=== PATIENT | male | born 1945 | race Caucasian/White ===

== ENCOUNTER 2016-09-18 19:53 | Emergency (ER) | payer OTHER ==
[~2016-09-18] VITALS: Ht 182.9 cm; Wt 99.3 kg
[2016-09-18 19:58] VITALS: TEMP 36.8; Ht 182.9 cm; Wt 99.3 kg
[2016-09-18] MEDS ORDERED: DIPH1TAB87 PO (20:16)
[2016-09-18] MEDS ORDERED: LACT1CAP6 PO (20:16)
[2016-09-18 21:01] VITALS: O2SAT 96
[2016-09-18 21:21] LABS: BASO % 0.3 %; BASO ABS # 0.03 K/uL (0-0.2); COMPLETE YES; EOS % 1.7 %; HEMATOCRIT 46.8 % (42-52); IG% 0.1 %; LYMPH % 18.9 %; LYMPH ABS # 1.76 K/uL (1.2-3.4); MEAN CELL VOLUME 93.2 fL (80-100); MEAN CORPUSCULAR HEMOGLOBIN 31.1 pg (25-34); MEAN CORPUSCULAR HGB CONC 33.3 g/dl (32-36); MEAN PLATELET VOLUME 10.8 fL (7.4-10.4); MONO % 8.4 %; NEUT % 70.6 %; PLATELET COUNT 264 K/uL (130-400); RED BLOOD COUNT 5.02 M/uL (4.7-6.1); WHITE BLOOD COUNT 9.32 K/uL (4.8-10.8)
[2016-09-18 21:39] LABS: ALT/SGPT 41 U/L (12-78); BLOOD UREA NITROGEN 25 mg/dl (7-18); BUN/CREATININE RATIO 19.4 (10-20); CARBON DIOXIDE 27 mmol/L (21-32); CHLORIDE 105 mmol/L (98-107); GLUCOSE 128 mg/dl (70-99); POTASSIUM 4.1 mmol/L (3.5-5.1); SODIUM 141 mmol/L (136-145)
[2016-09-18] MEDS ORDERED: SODIUM CHLORIDE 0.9% 1000ML 1,000 ML IV STA (21:42)
[2016-09-18 21:45] LABS: URINE APPEARANCE CLEAR (CLEAR); URINE BILIRUBIN NEG (NEG); URINE COLOR YELLOW; URINE NITRITE NEG (NEG); URINE SPECIFIC GRAVITY 1.024 (1.000-1.030); UROBILINOGEN NEG (NEG)
[2016-09-18 21:48] LABS: MANUAL MICROSCOPIC REQUIRED? NO; REVIEW REQ? NO
[2016-09-18 21:50] LABS: ALKALINE PHOSPHATASE 70 U/L (45-117); AST/SGOT 28 U/L (15-37)
[2016-09-18 21:56] LABS: CALCIUM 8.6 mg/dl (8.5-10.1)
--- NOTE | 2016-09-18 22:07 | DIAGNOSTIC IMAGING REPORT ---
CHEST AND ABDOMEN 2 VIEWS HISTORY: Generalized abdominal pain. COMPARISON: None. FINDINGS: Old, healed left clavicle fracture. The lungs are clear. The heart is normal in size. No pneumoperitoneum. No pneumatosis. Surgical clips within the right upper quadrant likely representing a prior cholecystectomy. Multiple pelvic calcifications consistent with phleboliths. No renal calculi identified. A 9 cm round density overlying the lateral aspect of the left mid abdomen. The bowel gas pattern is unremarkable. No evidence for bowel obstruction. IMPRESSION: 1. No acute cardiopulmonary process. No evidence for bowel obstruction. 2. A 9 cm round density overlying the left midabdomen. This most likely represents a renal cyst. However, a renal mass could also have a similar appearance. Follow-up nonemergent renal ultrasound is recommended for further evaluation. Electronically signed by: Uday Davis M.D. 09/18/2016 10:06 PM Dictated Date/Time: 09/18/2016 10:02 PM
[2016-09-18 22:59] VITALS: BP 140/77; PULSE 67; O2SAT 95
--- NOTE | 2016-09-18 23:07 | EMERGENCY ROOM VISIT NOTE ---
History First contact with patient: 20:13 Chief Complaint: OTHER COMPLAINT Stated Complaint: PASSED OUT AND HIT HEAD;SICK TO STOMACH History of Present Illness The patient is a 71 year old male who presents to the Emergency Room with complaints of symptoms while fishing with his grandson this morning. The patient reports that he started his day with breakfast around 7:30 AM. He had a piece of pie with coffee. He then went flyfishing with his grandson. Around 1:30 PM, the patient developed an abrupt and severe crampy sensation in the upper abdomen. He reports that it felt more like nausea than pain. The pain did not radiate into the back, lower abdomen or chest. The patient reports that the pain then mostly resolved. The patient reports that he sat down on a rock because he had some fatigue between his shoulder blades. Shortly after sitting down, the pain came back again. He alerted his grandson who was down strain. The grandson reports that he came up to him and asked what was wrong, and the patient did not reply. He then fell off of the rock, striking the right side of his head on another rock. It bent the frame on his glasses. The grandson reports that he did not respond for approximately 30 seconds. When the patient remembers coming to, he noticed pain on the right side of his head. He still had some mild epigastric discomfort that started to resolve. He then went home and ate a hamburger around 2:30 PM. This seemed to help his discomfort and "queasiness". He then went to his mother's house and took a nap. When he woke up, he reported that his right-sided headache was worse. He thought he was getting a migraine because he started to develop visual changes and nausea. He took one of his mother's migraine pills and had some coffee with some improvement of his headache. When he got home, he started to develop queasiness again with his headache. At this point, his suggested that he come to the emergency department for further evaluation. The patient denies any history of constipation, acid reflux for pancreatitis. He is status post cholecystectomy. He denies any recent chest pain or shortness of breath, and denies any cardiac history. He does not have a strong history of family heart disease. He currently denies any pain or nausea, only complaining of pressure on the right side of his head. He also reports some abrasions to the right elbow and knee. He denies any significant pain in these regions. Tetanus immunization is up-to-date. Review of Systems HEENT: Denies dizziness, visual problems, hearing loss, tinnitus. Denies difficulty swallowing or oral lesions. PULMONARY: Denies cough, shortness of breath, sputum production or hemoptysis. CARDIOVASCULAR: Denies chest pain, palpitations, dyspnea on exertion, orthopnea or peripheral edema. GASTROINTESTINAL: Denies diarrhea, constipation, nausea, vomiting, or abdominal pain at the time of exam. Otherwise see history of present illness. GENITOURINARY: Denies dysuria, frequency, urgency or nocturia. NEUROLOGIC: Denies history of epilepsy, CVA, TIA or chronic headaches. MUSCULOSKELETAL: Denies history of joint tenderness/swelling. SKIN: Denies rashes or lesions. PSYCHIATRIC: Denies history of depression or mental illness. ENDOCRINE: Denies history of diabetes or thyroid disorders. Past Medical/Surgical History Surgical Problems: (1) History of cholecystectomy Family History Unremarkable Social History Smoking Status: Never Smoker Alcohol Use: occasionally Marital Status: Occupation Status: retired Current/Historical Medications Scheduled Lactobacillus (Probiotic), 1 CAP PO QAM Scheduled PRN Diphenhydramine Hcl (Benadryl Allergy), 25 MG PO DIRECTED PRN for POLLEN SEASON Allergies Coded Allergies: POLLEN (Verified Allergy, Mild, "TICKLE IN THROAT"-COUGH, 09/18/16) Physical Exam Vital Signs Date Time Temp Pulse Resp B/P (MAP) Pulse Ox O2 Delivery O2 Flow Rate FiO2 09/18/16 22:06 62 16 145/74 96 Room Air 09/18/16 21:33 65 18 95 Room Air 09/18/16 21:30 63 09/18/16 21:01 96 Room Air 09/18/16 19:58 36.8 76 18 160/94 96 Room Air Physical Exam CONSTITUTIONAL: Healthy and well nourished. Alert and oriented X 3 with positive affect. GCS 15. Patient does not appear in any acute distress. HEENT: Normocephalic, atraumatic. Pupils equal, round and reactive. No epistaxis, hemotympanum, raccoon's eyes, subconjunctival hemorrhage or Hwang sign. NECK: Full active range of motion without discomfort. No JVD or carotid bruits. RESPIRATORY: Clear to auscultation bilaterally with no wheezing, crackles, rhonchi or stridor. CARDIOVASCULAR: Regular rate and rhythm with no murmurs, rubs or gallops. GASTROINTESTINAL: Bowel sounds present in all quadrants. Patient has minimal tenderness to palpation over the epigastric region. No abdominal rigidity, guarding or rebound. Negative CVA tenderness. MUSCULOSKELETAL: Full range of motion of all joints without discomfort. Should has superficial abrasions to the right posterior elbow and anterior right knee. INTEGUMENTARY: No rash or other significant dermatologic conditions noted. HEMATOLOGIC: No ecchymosis or petechiae. NEUROLOGIC: Cranial nerves II-XII grossly intact. No focal neurologic deficits noted. No ataxia with ambulation. Medical Decision & Procedures ER Provider Diagnostic Interpretation: My interpretation of an ECG shows a normal sinus rhythm of 66 bpm with a left axis deviation and voltage criteria for left ventricular hypertrophy. There are no previous ECGs available for comparison. My interpretation of an abdomen series with a PA chest view shows a 9 cm left renal mass that the radiologist suspects is a renal cyst. Radiologist report is as follows: CHEST AND ABDOMEN 2 VIEWS HISTORY: Generalized abdominal pain. COMPARISON: None. FINDINGS: Old, healed left clavicle fracture. The lungs are clear. The heart is normal in size. No pneumoperitoneum. No pneumatosis. Surgical clips within the right upper quadrant likely representing a prior cholecystectomy. Multiple pelvic calcifications consistent with phleboliths. No renal calculi identified. A 9 cm round density overlying the lateral aspect of the left mid abdomen. The bowel gas pattern is unremarkable. No evidence for bowel obstruction. IMPRESSION: 1. No acute cardiopulmonary process. No evidence for bowel obstruction. 2. A 9 cm round density overlying the left midabdomen. This most likely represents a renal cyst. However, a renal mass could also have a similar appearance. Follow-up nonemergent renal ultrasound is recommended for further evaluation. Laboratory Results 09/18/16 21:00 Red Blood Count 5.02, Mean Corpuscular Volume 93.2, Mean Corpuscular Hemoglobin 31.1, Mean Corpuscular Hemoglobin Concent 33.3, Mean Platelet Volume 10.8, Neutrophils (%) (Auto) 70.6, Lymphocytes (%) (Auto) 18.9, Monocytes (%) (Auto) 8.4, Eosinophils (%) (Auto) 1.7, Basophils (%) (Auto) 0.3, Neutrophils # (Auto) 6.58, Lymphocytes # (Auto) 1.76, Monocytes # (Auto) 0.78, Eosinophils # (Auto) 0.16, Basophils # (Auto) 0.03 09/18/16 21:00 Test 09/18/16 21:00 09/18/16 21:11 09/18/16 21:25 White Blood Count 9.32 K/uL (4.8-10.8) Red Blood Count 5.02 M/uL (4.7-6.1) Hemoglobin 15.6 g/dL (14.0-18.0) Hematocrit 46.8 % (42-52) Mean Corpuscular Volume 93.2 fL (80-100) Mean Corpuscular Hemoglobin 31.1 pg (25-34) Mean Corpuscular Hemoglobin Concent 33.3 g/dl (32-36) Platelet Count 264 K/uL (130-400) Mean Platelet Volume 10.8 fL (7.4-10.4) Neutrophils (%) (Auto) 70.6 % Lymphocytes (%) (Auto) 18.9 % Monocytes (%) (Auto) 8.4 % Eosinophils (%) (Auto) 1.7 % Basophils (%) (Auto) 0.3 % Neutrophils # (Auto) 6.58 K/uL (1.4-6.5) Lymphocytes # (Auto) 1.76 K/uL (1.2-3.4) Monocytes # (Auto) 0.78 K/uL (0.11-0.59) Eosinophils # (Auto) 0.16 K/uL (0-0.5) Basophils # (Auto) 0.03 K/uL (0-0.2) RDW Standard Deviation 43.9 fL (36.4-46.3) RDW Coefficient of Variation 12.9 % (11.5-14.5) Immature Granulocyte % (Auto) 0.1 % Immature Granulocyte # (Auto) 0.01 K/uL (0.00-0.02) Anion Gap 9.0 mmol/L (3-11) Est Creatinine Clear Calc Drug Dose 63.6 ml/min Estimated GFR () 63.6 Estimated GFR (Non- 54.9 BUN/Creatinine Ratio 19.4 (10-20) Calcium Level 8.6 mg/dl (8.5-10.1) Total Bilirubin 0.3 mg/dl (0.2-1) Direct Bilirubin < 0.1 mg/dl (0-0.2) Aspartate Amino Transf (AST/SGOT) 28 U/L (15-37) Alanine Aminotransferase (ALT/SGPT) 41 U/L (12-78) Alkaline Phosphatase 70 U/L (45-117) Total Creatine Kinase 78 U/L (39-308) Total Protein 7.5 gm/dl (6.4-8.2) Albumin 3.5 gm/dl (3.4-5.0) Lipase 176 U/L (73-393) Thyroid Stimulating Hormone (TSH) 1.330 uIu/ml (0.300-4.500) Bedside Troponin I < 0.030 ng/ml (0-0.045) Urine Color YELLOW Urine Appearance CLEAR (CLEAR) Urine pH 5.0 (4.5-7.5) Urine Specific [place] 1.024 (1.000-1.030) Urine Protein 1+ (NEG) Urine Glucose (UA) NEG (NEG) Urine Ketones NEG (NEG) Urine Occult Blood NEG (NEG) Urine Nitrite NEG (NEG) Urine Bilirubin NEG (NEG) Urine Urobilinogen NEG (NEG) Urine Leukocyte Esterase NEG (NEG) Urine WBC (Auto) 1-5 /hpf (0-5) Urine RBC (Auto) 0-4 /hpf (0-4) Urine Hyaline Casts (Auto) 1-5 /lpf (0-5) Urine Epithelial Cells (Auto) 5-10 /lpf (0-5) Urine Bacteria (Auto) NEG (NEG) The above labs were reviewed. Bedside troponin was normal. BUN and creatinine are 25 and 1.3, respectively with a glucose of 128. CBC is otherwise unremarkable. Medications Administered Medications (Trade) Dose Ordered Sig/Digna Route Start Time Stop Time Status Last Admin Dose Admin Sodium Chloride 1,000 ml @ 999 mls/hr Q1H1M STAT IV 09/18/16 21:42 09/18/16 22:42 DC 09/18/16 22:01 999 MLS/HR ED Course Patient history and physical exam were performed. Nurse's notes were reviewed. Vital signs were reviewed, showing a blood pressure 160/94. The patient is afebrile and not tachycardic. O2 saturation is 96% on room air. The patient refused any analgesics or antiemetics. IV access was established, and labs were drawn. Review of labs shows a mildly elevated BUN and creatinine. The patient was hydrated with normal saline. Otherwise remaining labs, including troponin, are normal. An ECG was performed and was suggestive of left ventricular hypertrophy. An abdomen obstruction series with PA chest view shows a 9 cm left renal mass with an appearance most consistent with renal cyst. A nonemergent renal ultrasound was recommended. Otherwise the chest x- ray was also normal. I did suggest performing a head CT, but the patient reports that his headache is continuing to improve, and refused a head CT. I did encourage the patient to follow-up with his PCP or urologist for further renal ultrasound studies. I also suggested avoiding GI irritants such as caffeine, alcohol, NSAIDs and spicy foods. I did encourage use of Zantac and other stomach medications such as Rolaids or Maalox as needed. The patient was instructed to return to the emergency department for any progressively worsening pain or headache. The patient was happy with plan of care, and denied any significant headache, epigastric pain or nausea at the time of discharge. The case was not discussed with an attending physician because they were involved in critical care of other patients. Medical Decision Vision presents with abrupt onset of epigastric pain that has been intermittent in nature. The patient now is asymptomatic. He also stained a closed head injury with an improving headache. The patient refused a head CT. Lipitor studies are not suggestive of pancreatitis or hepatitis. The patient is status post cholecystectomy. His abdominal x-ray shows a large left renal mass that appears to be a renal cyst. A nonemergent renal ultrasound was suggested by the radiologist. At this point I do not suspect aortic dissection, AAA, myocardial infarction, pneumonia or pneumothorax. An acute gastritis, GERD or other GI etiologies were considered. Impression Primary Impression: Epigastric pain Additional Impressions: Closed head injury Left renal mass Departure Information Referrals Juan Antonio Ng, HenriettaO. (PCP) Patient Instructions [facility] Problem Qualifiers Additional Impressions: Closed head injury Encounter type: initial encounter Qualified Codes: S09.90XA - Unspecified injury of head, initial encounter
== END 2016-09-18 23:00 | disposition home or self-care (01) ==
LOC: C.EDB 19:57 → C.EDC 23:00
DX: R10.13 Epigastric pain (principal); S09.90XA Unspecified injury of head, initial encounter; W22.8XXA Striking against or struck by other objects, initial encounter; Y92.828 Other wilderness area as the place of occurrence of the external cause; R93.422 Abnormal radiologic findings on diagnostic imaging of left kidney; S50.311A Abrasion of right elbow, initial encounter; S80.211A Abrasion, right knee, initial encounter

== ENCOUNTER → 2016-10-19 | Outpatient (CLI) | payer OTHER ==
[~2016-10-19] MED LIST: DIPH1TAB PO; LACT1CAP6 PO; OPTIRAY 320 IV PRN
--- NOTE | 2016-10-19 08:39 | DIAGNOSTIC IMAGING REPORT ---
KIDNEY (ABDOMEN) COMBO HISTORY:71 yearsMaleRENAL NEOPLASM opacity of the left upper abdomen was seen on comparison radiographs suggesting renal lesion. This is a follow-up exam. COMPARISON: Chest and abdomen radiographs 09/18/2016. TECHNIQUE: Multiple axial CT images of the abdomen were obtained utilizing renal neoplasm protocol both without and with the use of 115 mL Optiray 320. 80 second and 5 minute delayed images were obtained. FINDINGS: There is minimal bibasal atelectasis with linear opacities extending to the pleural surfaces suggesting possible associated subsegmental pleural parenchymal scarring. The inferior cardiac chambers are within normal limits. There is no pneumoperitoneum. Prior cholecystectomy. There is diffuse fatty infiltration of the liver. There is moderate pancreatic atrophy. Adrenal glands appear to be unremarkable. There is a thin-walled ovoid circumscribed fluid attenuating exophytic lesion of the interpolar left kidney measuring up to 8.8 x 6.6 x 8.7 cm in AP, transverse and craniocaudal dimensions correlating with the opacity seen on comparison radiographs. There is no associated enhancement or suspicious septations to suggest suspicious findings. This remains most compatible with a benign renal cyst. There is a similar-appearing lesion of the inferior pole left kidney, 2.5 x 2.2 cm posteriorly with multiple additional smaller subcentimeter low attenuating lesions present bilaterally which are too small to characterize, however would suggest additional benign cysts. No suspicious enhancing masses of the kidneys are identified. No renal calculi or hydronephrosis. The abdominal aorta is normal in course and caliber. No bulky adenopathy identified. There is no bowel obstruction. No ascites. Soft tissues are unremarkable. Multilevel endplate degenerative changes are seen throughout the spine. IMPRESSION: 1. Large thin-walled fluid attenuating circumscribed mass of the interpolar left kidney measuring up to 8.8 cm is compatible with a benign cyst. Multiple additional benign-appearing renal cysts are present bilaterally. 2. No enhancing or suspicious appearing renal mass is identified. 3. Additional incidental findings as above include fatty infiltration of the liver and prior cholecystectomy. The above report was generated using voice recognition software. It may contain grammatical, syntax or spelling errors. Electronically signed by: Marc Cheema M.D. 10/19/2016 8:37 AM Dictated Date/Time: 10/19/2016 8:29 AM
== END | disposition home or self-care (01) ==
LOC: C.CTS 07:56
PROVIDERS: ATTEND Urology
DX: D49.519 Neoplasm of unspecified behavior of unspecified kidney (principal)

== ENCOUNTER 2024-04-23 00:20 | Inpatient (IN) ==
--- OUTSIDE RECORDS SUMMARY | 2024-04-23 00:25 | External Medical Summary | Summary of Care ---
Author Name Unknown Organization [facility] Address [address] [place] [address] Phone [phone] Care Team Providers Care Credit Collections Analyst Name Role Phone Sandhya Brian MD Primary Care Provide r Reason for Visit * Reason Comments eRx-Medication Refill Encounter Details Date Type Department Care Team (Late st Contact Info) Description 04/13/2024 Refill Family Medicine [address] [place] [phone] Sandhya Brian MD [address] [place] [address] [place] [address] Cerebrovascular disease, arteriosclerotic, post-stroke Allergies No known active allergiesdocumented as of this encounter (statuses as of 04/13/2024) Medications Acyclovir 400 MG Oral Tablet (Zovirax) Take 1 Tablet by mouth in the morning and 1 Tablet before bedtime. 08/09/19 24 Active Allopurinol 100 MG Oral Tablet (Zyloprim) Take 0.5 Tablets by mouth in the morning. 09/06/19 24 Active Phospha 250 Neutral 155-852-130 MG Oral Tablet Take 1 Tablet by mouth in the morning. Active Magnesium 400 MG Oral Tablet Take by mouth daily. Takes at 1100 Active Aspirin 81 MG Oral Tablet Delayed Release (Aspirin 81) Take 1 Tablet by mouth in the morning. Takes A1100. Active Loratadine 10 MG Oral Tablet (Claritin) Take 1 Tablet by mouth in the morning. Active Fluticasone Propionate 50 MCG/ACT Nasal SuspensionIndicat ions:Non-seasonal allergic rhinitis due to pollen,Acute frontal sinusitis, recurrence not specified Administer 2 Sprays into each nostril in the morning. 16 g 5 12/23/19 24 Active Benzonatate 100 MG Oral Capsule (Tessalon Perles) Take 1 Capsule by mouth 3 times a day as needed for Cough. 90 Capsule 01/19/20 24 Active Montelukast Sodium 10 MG Oral Tablet (Singulair)Indica tions:COPD, group B, by GOLD 2017 classification ([facility]) Take 1 Tablet by mouth in the morning. 30 Tablet 5 03/07/20 24 Active Arnuity Ellipta 200 MCG/ACT Inhalation Aerosol Powder Breath Activated (fluticasone Furoate)Indicatio ns:COPD, group B, by GOLD 2017 classification ([facility]) Inhale 1 Puff by mouth in the morning. 30 Each 2 03/14/20 24 Active Atorvastatin Calcium 10 MG Oral Tablet (Lipitor)Indicati ons:Cerebrovascul ar disease, arteriosclerotic, post-stroke TAKE 1 TABLET BY MOUTH EVERY DAY IN THE MORNING 90 Tablet 1 04/13/19 25 Active Atorvastatin Calcium 10 MG Oral Tablet (Lipitor)Indicati ons:Cerebrovascul ar disease, arteriosclerotic, post-stroke Take 1 Tablet by mouth in the morning. 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 07/11/2021 Chewing tobacco use 07/11/2021 BPH without obstruction/lower urinary tract symp toms 07/11/2021 Stage 3a chronic kidney disease 07/10/2020 Non-seasonal allergic rhinitis due to pollen 10/2019 Chronic midline low back pain without sciatica 0 12/04/2016 Renal cyst 12/04/2016 History of tobacco use documented as of this encounter (statuses as of 04/13/2024) Resolved Problems Problem Noted Date Diagnosed Date Resolved Date Kidney disease, chronic, sta ge III (GFR 30-59 ml/min) 01/16/2019 07/10/2020 Overview: Per CKD protocol documented as of this encounter (statuses as of 04/13/2024) Immunizations Name Administration Dates Next Due COVID-19 mRNA, LNP-s, No Pre serve, 2-Dose Series ([facility]) 06/05/2020,05/15/2020 COVID-19, MRNA-LNP, PF, 30 M CG/0.3 mL, 12 YRS AND ABOVE, IM ([facility]) 01/28/2024,03/10/2023 Covid-19, Mrna, Lnp-s, Pf, B ivalent, 30 Mcg, IM, 12 yrs and above (Pfizer) 12/23/2021 Pneumococcal Conjugate Vacc, 13 Valent (Prevnar) 01/05/2019 Pneumococcal Polysaccharide PPV23 (Pneumovax) 01/10/2020 Season Influenza, Quad, PF, Adjuvanted, 65+ Yrs, IM (FLUAD) 01/10/2020 Seasonal Influenza, High Dos e, Trivalent, PF, IM (Fluzone HD) 01/28/2024 Seasonal Influenza, PF, 6 M & above, IM , (FluLaval or Fluzone) 02/03/2018 Seasonal Influenza, Quadriva lent Hd (Fluzone Hd) 12/17/2022,02/18/2022,01/03/2021 Seasonal Influenza, Trivalen t, Adjuvanted, 65+ YRS, PF, (Fluad) 01/05/2019 documented as of this encounter Social History Tobacco Use Types Packs/Day Years Used Date Smoking Tobacco: Former Smokeless Tobacco: Current Snuff Alcohol Use Standard Drinks/Week Comments Yes 0 (1 standard drink = 0.6 oz pur e alcohol) occasional PHQ-2 Answer Date Recorded PHQ Adult Total Score 0 07/11/2021 Hunger Vital Sign Answer Date Recorded Within the past 12 months, y ou worried that your food would run out before you got the money to buy more. Never true 07/12/19 22 Within the past 12 months, t he food you bought just didn't last and you didn't have money to get more. Never true 07/11/2021 Sex and Gender Information Value Date Recorded Sex Assigned at Not on file Legal Sex Male 5:27 AM EST Gender Identity Not on file Sexual Orientation Not on file documented as of this encounter Miscellaneous Notes * Telephone Encounter - Ade Eastman [facility] - 04/13/2024 3:15 PM ESTSigned Prescriptions: Disp Refills Atorvastatin Calcium 10 MG Oral Tablet (Li*90 Tab*1 Sig: TAKE 1 TABLET BY MOUTH EVERY DAY IN THE MORNINGAuthorizing Provider: Gillian BRIAN User:ADE EASTMAN * Telephone Encounter - Ade Eastman [facility] - 04/13/2024 3:14 PM EST Did not order lipid panel at this time due to patient age and last LDL < 70 Thank you, Ade Eastman, PharmD Clinical Pharmacist [facility] 04/13/24 3:15 PM [phone] documented in this encounter Plan of Treatment Upcoming Encounters Date Type Department Care Team (Late st Contact Info) Description 05/01/2024 10:00 AM EST Office Visit [address] [place] [phone] Sandhya Brian MD [address] [place] [address] [place] [id number] 09/04/2024 7:20 AM EDT Office Visit [address] [place] [phone] Sandhya Brian MD [address] [place] [address] [place] [id number] Health Maintenance Due Date Last Done Comments DTap/Tdap Vaccines (1 - Tdap) 1964 Zoster Vaccines (1 of 2) 1964 Adult Wellness Visit 04/22/2017 04/22/2016 Depression Screening 07/11/2022 07/11/2021 Albumin/Creatinine Ratio 06/16/2023 023, 10/30/2021, 07/11/2021 GFR 09/18/2024 03/20/2024, 02/04, 02/07/2024, Additional history exists CKD HGB USE SMARTSET 56593 03/20/202503/20, 02/28/2024, 02/08/2024, Additional history exists CKD PHOS USE SMARTSET 90409 03/20/202503/05, 02/28/2024, 02/07/2024, Additional history exists Pneumococcal Vaccine: 50+ Years Completed 01/10/2020, 01/05/2019 COVID-19 Vaccine Completed 01/28/2024, 09/2022, 12/23/2021, Additional history exists Influenza Vaccine (FLU shot) Completed , 01/28/2024, 12/17/2022, Additional history exists HPV (Gardasil) Vaccine Aged Out No lo nger eligible based on patient's age to complete this topic Hepatitis B Vaccine Aged Out No longe r eligible based on patient's age to complete this topic MENINGOCOCCAL (MENACTRA/MENVEO) Aged Out No longer eligible based on patient's age to complete this topic documented as of this encounter Medical Devices Not on filedocumented as of this encounter Visit Diagnoses Diagnosis Cerebrovascular disease, arteriosclerotic, post-stroke Cerebral atherosclerosis documented in this encounter Care Teams Credit Collections Analyst Relationship Specialty Start Date End Date Sandhya Brian MD [address] [place] [address] [place] [id number] PCP - General Family Medicine 10/30/21 documented as of this encounter
--- OUTSIDE RECORDS SUMMARY | 2024-04-23 00:25 | External Medical Summary | Summary of Care ---
Author Name Unknown Organization [facility] Address [address] [facility] [address] Phone [phone] Care Team Providers Care Time Study Analyst Name Role Phone Sandhya Brian MD Primary Care Provide r Reason for Visit * Reason Onset Date Comments Med Request 03/13/2024 Encounter Details Date Type Department Care Team (Late st Contact Info) Description 03/13/2024 Telephone Family Medicine [address] [place] [phone] Sandhya Brian MD [address] [place] [address] [place] [address] Med Request Allergies No known active allergiesdocumented as of this encounter (statuses as of 03/14/2024) Medications Acyclovir 400 MG Oral Tablet (Zovirax) [...] Tablet by mouth in the morning. Active Atorvastatin Calcium 10 MG Oral Tablet (Lipitor)Indicati ons:Cerebrovascul ar disease, arteriosclerotic, post-stroke Take 1 Tablet by mouth in the morning. 90 Tablet 1 10/22/19 24 Active Fluticasone Propionate 50 MCG/ACT Nasal SuspensionIndicat [...] tions:COPD, group B, by GOLD 2017 classification ([facility]) Take 1 Tablet by mouth in the morning. 30 Tablet 5 03/07/20 24 Active Arnuity Ellipta 200 MCG/ACT Inhalation Aerosol Powder Breath Activated (fluticasone Furoate)Indicatio ns:COPD, group B, by GOLD 2017 classification ([facility]) Inhale 1 Puff by mouth in the morning. 30 Each 2 03/14/20 24 Active Arnuity Ellipta 100 MCG/ACT Inhalation Aerosol Powder Breath Activated (fluticasone Furoate) Inhale 1 Puff by mouth in the morning. 2023 Discontinued documented as of this encounter (statuses as of 03/14/2024) Active Problems Problem Noted Date Diagnosed Date [...] as of this encounter (statuses as of 03/14/2024) Resolved Problems Problem Noted Date Diagnosed Date Resolved Date Kidney disease, chronic, sta ge III (GFR 30-59 ml/min) 01/16/2019 07/10/2020 Overview: Per CKD protocol documented as of this encounter (statuses as of 03/14/2024) Immunizations Name Administration Dates Next Due COVID-19 mRNA, LNP-s, No Pre serve, 2-Dose Series ([employer]™) 06/05/2020,05/15/2020 COVID-19, MRNA-LNP, PF, 30 M CG/0.3 mL, 12 YRS AND ABOVE, IM ([employer]) 01/28/2024,03/10/2023 Covid-19, Mrna, Lnp-s, Pf, B ivalent, [...] encounter Miscellaneous Notes * Telephone Encounter - Sandhya Brian MD - 03/14/2024 8:20 AM EST Higher dose arnuity sent * Telephone Encounter - Ari Jamil PHARM Tech - 03/13/2024 8:20 AM EST Pt spouse calling to request a refill on Arnuity Ellipta 200MCG/ACT. Medication was last prescribedby Dr. Chang but patient is asking if PCP can take over the medication. Please advise if this is appropriate and send to [facility] [id number] if agreeable. Pt spouse states that at the last OV with PCP, it was discussed to increase Arnuity to 200mcg but there was no new script sent to the pharmacy. Pt has been using 2 puffs instead of 1 since his OV. Please approve refill WITH increased dose if appropriate. Pt will be out of medication on Wednesday. Pt spouse can be reached at [phone] ThanksAri CPht Tray Server III [facility] 03/13/2024,8:20 AM documented in this encounter Plan of Treatment Upcoming Encounters Date Type Department Care Team (Late st Contact Info) Description 05/01/2024 10:00 AM EST Office Visit [address] [place] [phone] Sandhya Brian MD [address] [place] [address] [place] [address] 09/04/2024 7:20 AM EDT Office Visit [address] [place] [phone] Sandhya Brian MD [address] [place] [address] [place] [address] Health Maintenance Due Date Last Done Comments DTap/Tdap Vaccines (1 - Tdap) 1964 Zoster Vaccines (1 of 2) 1964 Adult Wellness Visit 04/22/2017 04/22/2016 Depression Screening 07/11/2022 07/11/2021 Albumin/Creatinine Ratio 06/16/2023 023, 10/30/2021, 07/11/2021 GFR 08/27/2024 02/28/2024, 11/0 07/2023, 01/18/2024, Additional history exists CKD HGB USE SMARTSET 66330 02/27/202502/27, 02/08/2024, 01/18/2024, Additional history exists CKD PHOS USE SMARTSET 85655 02/27/202502/04, 02/07/2024, 01/18/2024, Additional history exists Pneumococcal Vaccine: 65+ Years Completed 01/10/2020, 01/05/2019 COVID-19 Vaccine Completed 01/28/2024, 09/2022, 12/23/2021, Additional history exists Influenza Vaccine (FLU shot) Completed , 12/17/2022, 02/18/2022, Additional history exists HPV (Gardasil) Vaccine Aged [...] as of this encounter Visit Diagnoses Diagnosis COPD, group B, by GOLD 2017 classification (HCC)- Primary documented in this encounter Care Teams Time Study Analyst Relationship Specialty Start Date End Date Sandhya Brian MD [address] [place] [address] [place] [address] PCP - General Family Medicine 10/30/21 documented as of this encounter
--- OUTSIDE RECORDS SUMMARY | 2024-04-23 00:25 | External Medical Summary | Summary of Care ---
Author Name Unknown Organization [facility] Address [address] [facility] [address] Phone [phone] Care Team Providers Care Clinical Quality Rn Name Role Phone Sandhya Brian MD Primary Care Provide r Reason for Visit * Reason Onset Date Comments Med Request 03/13/2024 Encounter Details Date Type Department Care Team (Late st Contact Info) Description 03/13/2024 Telephone Family Medicine [address] [place] [phone] Sandhya Brian MD [address] [place] [address] [place] [address] Med Request Allergies No known [...] tions:COPD, group B, by GOLD 2017 classification ([facility]) Take 1 Tablet by mouth in the morning. 30 Tablet 5 03/07/20 24 Active Arnuity Ellipta 200 MCG/ACT Inhalation Aerosol Powder Breath Activated (fluticasone Furoate)Indicatio ns:COPD, group B, by GOLD 2017 classification ([facility]) Inhale 1 Puff by mouth in the [...] mRNA, LNP-s, No Pre serve, 2-Dose Series (Lup[employer]ch) 06/05/2020,05/15/2020 COVID-19, MRNA-LNP, PF, 30 M CG/0.3 mL, 12 YRS AND ABOVE, IM ([employer]) 01/28/2024,03/10/2023 Covid-19, Mrna, Lnp-s, Pf, B ivalent, [...] encounter Miscellaneous Notes * Telephone Encounter - Joyce Ibarra CMA - 03/14/2024 8:54 AM EST Called and pt gave phone to , advised inhaler sent in to pharmacy * Telephone Encounter - Sandhya Brian MD [...] if this is appropriate and send to [facility] [id number] if agreeable. Pt spouse states that [...] Wednesday. Pt spouse can be reached at [phone] Ari Bowman CPht Memorandum Statement Clerk III [facility] 03/13/2024,8:20 AM documented in this encounter Plan of Treatment Upcoming Encounters Date Type Department Care Team ([facility] st Contact Info) Description 05/01/2024 10:00 AM EST Office Visit Family Medicine [address] [place] [phone] Sandhya Brian MD [address] [place] [address] [place] [address] 09/04/2024 7:20 AM EDT Office Visit Family Medicine [address] [place] [phone] Sandhya Brian MD [address] [place] [address] [place] [address] Health Maintenance Due Date Last Done Comments DTap/Tdap Vaccines (1 - Tdap) 1964 Zoster Vaccines (1 of 2) 1964 Adult Wellness Visit 04/22/2017 04/22/2016 Depression Screening 07/11/2022 07/11/2021 Albumin/Creatinine Ratio 06/16/2023 023, 10/30/2021, 07/11/2021 GFR 08/27/2024 02/28/2024, 1107/2023, 01/18/2024, Additional history exists CKD HGB USE SMARTSET 49504 02/27/202502/27, 02/08/2024, 01/18/2024, Additional history exists CKD PHOS USE SMARTSET 94464 02/27/202502/04, 02/07/2024, 01/18/2024, Additional history exists Pneumococcal [...] Primary documented in this encounter Care Teams Clinical Quality Rn Relationship Specialty Start Date End Date Sandhya Brian MD [address] [place] [address] [place] [id number] PCP - General Family Medicine 10/30/21 documented as of this encounter
--- OUTSIDE RECORDS SUMMARY | 2024-04-23 00:26 | External Medical Summary | Summary of Care ---
Author Name Unknown Organization [facility] Address [address] [facility] [place] [address] Phone [phone] Care Team Providers Care Retail Inventory Control Clerk Name Role Phone Sandhya Brian MD Primary Care Provide r Encounter Details Date Type Department Care Team (Late st Contact Info) Description 02/22/2024 Result Scan Unspecified Department <No scans attached> Allergies No known active allergiesdocumented as of this encounter (statuses as of 02/23/2024) Medications Acyclovir 400 MG Oral Tablet (Zovirax) Take 1 Tablet by mouth in the morning and 1 Tablet before bedtime. 4 Active Allopurinol 100 MG Oral Tablet (Zyloprim) Take 0.5 Tablets by mouth in the morning. 4 Active Phospha 250 Neutral 155-852-130 MG Oral Tablet Take 1 Tablet by mouth in the morning. Active Magnesium 400 MG Oral Tablet Take by mouth daily. Takes at 1100 Active Aspirin 81 MG Oral Tablet Delayed Release (Aspirin 81) Take 1 Tablet by mouth in the morning. Takes A1100. Active Sulfamethoxazol e-Trimethoprim 400-80 MG Oral Tablet (Bactrim) 1 Tablet. Wednesday and Wednesday 4 Active Loratadine 10 MG Oral Tablet (Claritin) Take 1 Tablet by mouth in the morning. Active Atorvastatin Calcium 10 MG Oral Tablet (Lipitor)Indica tions:Cerebrova scular disease, arterioscleroti c, post-stroke Take 1 Tablet by mouth in the morning. 90 Tablet 1 4 Active Fluticasone Propionate 50 MCG/ACT Nasal SuspensionIndic ations:Non-seas onal allergic rhinitis due to pollen,Acute frontal sinusitis, recurrence not specified Administer 2 Sprays into each nostril in the morning. 16 g 5 4 Active Azithromycin 250 MG Oral Tablet (Zithromax Z-Heriberto)Indicatio ns:Acute cough Take two tablets by mouth on first day, then 1 tablet daily until gone 6 Tablet 4 Active predniSONE 10 MG Oral Tablet (Deltasone)Giuliana cations:Acute cough Take 5 tabs for 2 days, 4 tabs for 2 days, 3 tabs for 2 days, 2 tabs for 2 days 1 tab for 2 days 30 Tablet 4 Active Benzonatate 100 MG Oral Capsule (Tessalon Perles) Take 1 Capsule by mouth 3 times a day as needed for Cough. 90 Capsule 4 Active documented as of this encounter (statuses as of 02/23/2024) Active Problems Problem Noted Date Diagnosed Date [...] as of this encounter (statuses as of 02/23/2024) Resolved Problems Problem Noted Date Diagnosed Date Resolved Date Kidney disease, chronic, sta ge III (GFR 30-59 ml/min) 01/16/2019 07/10/2020 Overview: Per CKD protocol documented as of this encounter (statuses as of 02/23/2024) Immunizations Name Administration Dates Next Due COVID-19 mRNA, LNP-s, No Pre serve, 2-Dose Series ([employer]) 06/05/2020,05/15/2020 COVID-19, MRNA-LNP, PF, 30 M CG/0.3 mL, 12 YRS AND ABOVE, IM (PFI[employer]ER-Comirnaty) 01/28/2024,03/10/2023 Covid-19, Mrna, Lnp-s, Pf, B ivalent, [...] money to get more. Never true 07/11/2021 Utilities Answer Date Recorded Do you have trouble paying y our heating, water, or electric bill? (Adult - for ages 18 years and over) Not on file 09/21/2023 Is your family able to pay t he heat, water, or electric bill? (Household - for ages 0-17 years) Not on file 09/21/2023 Does your family have access to good internet? (Household - for ages 0-17 years) Not on file 09/21/2023 Social Connections Answer Date Recorded How often do you feel lonely or isolated from those around you? (Adult - for ages 18 years and over) Not on file 09/21/2023 Sex and Gender Information Value Date Recorded Sex Assigned at Not on file Legal Sex Male 5:27 AM EST Gender Identity Not on file Sexual Orientation Not on file documented as of this encounter Plan of Treatment Upcoming Encounters Date Type Department Care Team (Late st Contact Info) Description 09/04/2024 7:20 AM EDT Office Visit Family Medicine [address] [place] [phone] Sandhya Brian MD [address] [place] [address] [place] [address] Health Maintenance Due Date Last Done Comments DTap/Tdap Vaccines (1 - Tdap) 1964 Zoster Vaccines (1 of 2) 1964 Adult Wellness Visit 04/22/2017 04/22/2016 Depression Screening 07/11/2022 07/11/2021 Albumin/Creatinine Ratio 06/16/2023 023, 10/30/2021, 07/11/2021 GFR 08/06/2024 02/07/2024, 01/03, 12/31/2023, Additional history exists CKD PHOS USE SMARTSET 12799 02/06/202507/2023, 01/18/2024, 12/31/2023, Additional history exists CKD HGB USE SMARTSET 82985 02/07/202502/07, 01/18/2024, 12/31/2023, Additional history exists Pneumococcal Vaccine: 65+ Years [...] Not on filedocumented as of this encounter Procedures Procedure Name Priority Date/Time Associated Diagnosis Comments OUTSIDE LAB RESULTS 02/22/2024 documented in this encounter Results * OUTSIDE LAB RESULTS (02/22/2024) 02/22/2024 us No Physician Data Unknown LABORATORY Final Result documented in this encounter Care Teams Retail Inventory Control Clerk Relationship Specialty Start Date End Date Sandhya Brian MD [address] [place] [address] [place] [address] PCP - General Family Medicine 10/30/21 documented as of this encounter
--- OUTSIDE RECORDS SUMMARY | 2024-04-23 00:26 | External Medical Summary | Summary of Care ---
Author Name Unknown Organization [facility] Address [address] [facility] [place] [address] Phone [phone] Care Team Providers Care Warp Knitting Machine Operator Name Role Phone Sandhya Brian MD Primary Care Provide r Reason for Visit * Reason Onset Date Comments Advice 03/06/2024 Encounter Details Date Type Department Care Team (Late st Contact Info) Description 03/06/2024 Telephone Family Medicine [address] [place] [phone] Sandhya Brian MD [address] [place] [address] [place] [address] Advice Allergies No known active allergiesdocumented as of this encounter (statuses as of 03/06/2024) Medications Acyclovir 400 MG Oral Tablet (Zovirax) [...] as of this encounter (statuses as of 03/06/2024) Active Problems Problem Noted Date Diagnosed Date [...] as of this encounter (statuses as of 03/06/2024) Resolved Problems Problem Noted Date Diagnosed Date Resolved Date Kidney disease, chronic, sta ge III (GFR 30-59 ml/min) 01/16/2019 07/10/2020 Overview: Per CKD protocol documented as of this encounter (statuses as of 03/06/2024) Immunizations Name Administration Dates Next Due COVID-19 mRNA, LNP-s, No Pre serve, 2-Dose Series ([employer]) 06/05/2020,05/15/2020 COVID-19, MRNA-LNP, PF, 30 M CG/0.3 mL, 12 YRS AND ABOVE, IM ([employer]) 01/28/2024,03/10/2023 Covid-19, Mrna, Lnp-s, Pf, B ivalent, [...] Telephone Encounter - Sandhya Brian MD - 03/06/2024 1:23 PM EST Recommend a clinic eval * Telephone Encounter - Joyce bIarra CMA - 03/06/2024 10:35 AM EST Please advise * Telephone Encounter - Jovan Nunez, silverer - 03/06/2024 10:22 AM EST Pt calling for advice regarding persistent cough. Pt has had horrible cough since end of November and try/failed many medication. Saw courseware developer "who stated it was pts sinuses." Pt also told he has acid reflux and asthma. Pt taking Flonase, omeprazole and inhaler. Pt's stating pt still has cough but is unsure what to do. Please contact pt's at home first, if no answer pt's might have her cell phone on her [phone]. [facility] [id number] Thank you, Jovan Nunez Founder And Chief Executive Officer I [facility] ([facility]) 03/06/2024,10:28 AM documented in this encounter Plan of Treatment Upcoming Encounters Date Type Department Care Team (Late st Contact Info) Description 09/04/2024 7:20 AM EDT Office Visit Family Medicine [address] [place] [phone] Sandhya Brian MD [address] [place] [address] [place] [address] Health Maintenance Due Date Last Done Comments DTap/Tdap Vaccines (1 - Tdap) 1964 Zoster Vaccines (1 of 2) 1964 Adult Wellness Visit 04/22/2017 04/22/2016 Depression Screening 07/11/2022 07/11/2021 Albumin/Creatinine Ratio 06/16/2023 023, 10/30/2021, 07/11/2021 GFR 08/27/2024 02/28/2024, 07/2023, 01/18/2024, Additional history exists CKD HGB USE SMARTSET 09770 02/27/202502/27, 02/08/2024, 01/18/2024, Additional history exists CKD PHOS USE SMARTSET 71779 02/27/202502/04, 02/07/2024, 01/18/2024, Additional history exists Pneumococcal [...] Not on filedocumented as of this encounter Care Teams Warp Knitting Machine Operator Relationship Specialty Start Date End Date Sandhya Brian MD [address] [place] [address] [place] [phone] PCP - General Family Medicine 10/30/21 documented as of this encounter
--- OUTSIDE RECORDS SUMMARY | 2024-04-23 00:26 | External Medical Summary | Summary of Care ---
Author Name Unknown Organization [facility] Address [address] [facility] [place] [address] Phone [phone] Care Team Providers Care Dynamiter Name Role Phone Sandhya Brian MD Primary Care Provide r Encounter Details Date Type Department Care Team (Late st Contact Info) Description 02/10/2024 Orders Only Family Medicine [address] [place] [phone] Sandhya Brian MD [address] [place] [address] [place] [address] Allergies No known active allergiesdocumented as of this encounter (statuses as of 02/10/2024) Medications Medication Sig Dispensed Refills Start Date End Date Status Acyclovir 400 MG Oral Tablet (Zovirax) Take 1 Tablet by mouth in the morning and 1 Tablet before bedtime. 08/09/2023 Active Allopurinol 100 MG Oral Tablet (Zyloprim) Take 0.5 Tablets by mouth in the morning. 09/06/2023 Active Phospha 250 Neutral 155-852-130 MG Oral Tablet Take 1 Tablet by mouth in the morning. Active Magnesium 400 MG Oral Tablet Take by mouth daily. Takes at 1100 Active Aspirin 81 MG Oral Tablet Delayed Release (Aspirin 81) Take 1 Tablet by mouth in the morning. Takes A1100. Active Sulfamethoxazole-Tr imethoprim 400-80 MG Oral Tablet (Bactrim) 1 Tablet. Wednesday and Wednesday07/26/2023 Active Loratadine 10 MG Oral Tablet (Claritin) Take 1 Tablet by mouth in the morning. Active Atorvastatin Calcium 10 MG Oral Tablet (Lipitor)Indication s:Cerebrovascular disease, arteriosclerotic, post-stroke Take 1 Tablet by mouth in the morning. 90 Tablet 1 10/22/2023 Active Fluticasone Propionate 50 MCG/ACT Nasal SuspensionIndicatio ns:Non-seasonal allergic rhinitis due to pollen,Acute frontal sinusitis, recurrence not specified Administer 2 Sprays into each nostril in the morning. 16 g 5 12/23/2023 Active Azithromycin 250 MG Oral Tablet (Zithromax Z-Heriberto)Indications:A cute cough Take two tablets by mouth on first day, then 1 tablet daily until gone 6 Tablet 12/28/2023 Active predniSONE 10 MG Oral Tablet (Deltasone)Indicati ons:Acute cough Take 5 tabs for 2 days, 4 tabs for 2 days, 3 tabs for 2 days, 2 tabs for 2 days 1 tab for 2 days 30 Tablet 12/28/2023 Active Benzonatate 100 MG Oral Capsule (Tessalon Perles) Take 1 Capsule by mouth 3 times a day as needed for Cough. 90 Capsule 01/19/2024 Active documented as of this encounter (statuses as of 02/10/2024) Active Problems Problem Noted Date Diagnosed Date [...] as of this encounter (statuses as of 02/10/2024) Resolved Problems Problem Noted Date Diagnosed Date Resolved Date Kidney disease, chronic, sta ge III (GFR 30-59 ml/min) 01/16/2019 07/10/2020 Overview: Per CKD protocol documented as of this encounter (statuses as of 02/10/2024) Immunizations Name Administration Dates Next Due COVID-19 mRNA, LNP-s, No Pre serve, 2-Dose Series ([employer]) 06/05/2020,05/15/2020 COVID-19, MRNA-LNP, PF, 30 M CG/0.3 mL, 12 YRS AND ABOVE, IM ([facility]) 01/28/2024,03/10/2023 Covid-19, Mrna, Lnp-s, Pf, B [...] Recorded Sex Assigned at Not on file Gender Identity Not on file Sexual Orientation Not on file Job Start Date Occupation Industry Not on file Not on file Not on file documented as of this encounter Plan of Treatment Upcoming Encounters Date Type Department Care Team (Late st Contact Info) Description 09/04/2024 7:20 AM EDT Office Visit Family Medicine [address] [place] [phone] Sandhya Brian MD [address] [place] [address] [place] [address] Health Maintenance Due Date Last Done Comments DTap/Tdap Vaccines (1 - Tdap) 1964 Zoster Vaccines (1 of 2) 1964 Adult Wellness Visit 04/22/2017 04/22/2016 Depression Screening 07/11/2022 07/11/2021 Albumin/Creatinine Ratio 06/16/2023 023, 10/30/2021, 07/11/2021 GFR 08/06/2024 02/07/2024, 01/03, 12/31/2023, Additional history exists CKD PHOS USE SMARTSET 46613 02/06/202507/2023, 01/18/2024, 12/31/2023, Additional history exists CKD HGB USE SMARTSET 94259 02/07/202502/07, 01/18/2024, 12/31/2023, Additional history exists Pneumococcal [...] Procedure Name Priority Date/Time Associated Diagnosis Comments CHEMISTRY-OUTSIDE Routine 02/08/2024 documented in this encounter Results * (ABNORMAL) CHEMISTRY-OUTSIDE (02/08/2024) Not all results display below - see scan for full detail OUTSIDE LAB (SEE SCANNED REPORT) Comment:SCAN INCLUDES - CBCD CREATININE OUTSIDE L AB (SEE SCANNED REPORT) EGFR OUTSIDE LA B (SEE SCANNED REPORT) POTASSIUM OUTSIDE LA B (SEE SCANNED REPORT) GLUCOSE OUTSIDE LA B (SEE SCANNED REPORT) HOURS FASTING OUTSID E LAB (SEE SCANNED REPORT) TRIGLYCERIDES-OUT SIDE LAB OUTSIDE LAB (SEE SCANNED REPORT) CHOLESTEROL-OUTSI DE LAB OUTSIDE LAB (SEE SCANNED REPORT) HDL-OUTSIDE LAB OUTS [facility] (SEE SCANNED REPORT) CHOL/HDL RATIO-OUTSIDE LAB OUTSIDE LA B (SEE SCANNED REPORT) LDL (CALCULATED)-OUTS [facility] OUTSIDE LAB (SEE SCANNED REPORT) LDL (DIRECT MEASURE)-OUTSIDE LAB OUTSIDE LAB (SEE SCANNED REPORT) HEMOGLOBIN, E5Z-[id number] LAB OUTSIDE LAB (SEE SCANNED REPORT) PHOSPHORUS-OUTSID E LAB OUTSIDE LAB (SEE SCANNED REPORT) PTH-OUTSIDE LAB OUTS [facility] (SEE SCANNED REPORT) MICROALBUMIN RATIO-OUTSIDE LAB OUTSIDE LA B (SEE SCANNED REPORT) PROTEIN, UA-OUTSIDE LAB OUTSIDE LAB (SEE SCANNED REPORT) HGB 11.1(A) 13.5 - 18.0 GM/DL OUTSIDE LAB (SEE SCANNED REPORT) 02/08/2024 Ludivina Cerrato PA-C LABORATORY OUTSIDE LAB (SEE SCANNED REPORT) documented in this encounter Care Teams Dynamiter Relationship Specialty Start Date End Date Sandhya Brian MD [address] [place] [address] [place] [address] PCP - General Family Medicine 10/30/21 documented as of this encounter
--- OUTSIDE RECORDS SUMMARY | 2024-04-23 00:26 | External Medical Summary | Summary of Care ---
Author Name Unknown Organization [facility] Address [address] [place] [address] Phone [phone] Care Team Providers Care Server Service Assistant Name Role Phone Sandhya Brian MD Primary Care Provide r Reason for Visit * Reason Onset Date Comments Fax 03/01/2024 Encounter Details Date Type Department Care Team (Late st Contact Info) Description 03/01/2024 Telephone Access Center, [place] [address] [facility] *DO NOT REMOVE THIS DEPARTMENT* [place], [place] [id number] Services, Scheduling [address] [place] [address] Fax Allergies No known active allergiesdocumented as of this encounter (statuses as of 03/01/2024) Medications Acyclovir 400 MG Oral Tablet (Zovirax) [...] Active Benzonatate 100 MG Oral Capsule (Tessalon Perlmunir) Take 1 Capsule by mouth 3 times a day as needed for Cough. 90 Capsule 4 Active documented as of this encounter (statuses as of 03/01/2024) Active Problems Problem Noted Date Diagnosed Date [...] as of this encounter (statuses as of 03/01/2024) Resolved Problems Problem Noted Date Diagnosed Date Resolved Date Kidney disease, chronic, sta ge III (GFR 30-59 ml/min) 01/16/2019 07/10/2020 Overview: Per CKD protocol documented as of this encounter (statuses as of 03/01/2024) Immunizations Name Administration Dates Next Due COVID-19 mRNA, LNP-s, No Pre serve, 2-Dose Series ([employer]) 06/05/2020,05/15/2020 COVID-19, MRNA-LNP, PF, 30 M CG/0.3 mL, 12 YRS AND ABOVE, IM ([facility] 01/28/2024,03/10/2023 Covid-19, Mrna, Lnp-s, Pf, B [...] encounter Miscellaneous Notes * Telephone Encounter - Kimmy Morales OSA - 03/01/2024 3:03 PM EST Caller requesting the following information to be faxed: Name/Company of caller: ravi vazquez [facility] cardiology Information requested to be faxed: Holter monitor results Fax number: [phone] Attention to Name/Company: [employer]avi Any additional information?: faxed for cont. Of care- pt in their office now documented in this encounter Plan of Treatment Upcoming Encounters Date Type Department Care Team (Late st Contact Info) Description 09/04/2024 7:20 AM EDT Office Visit Family Medicine [address] [place] [address] Sandhya Brian MD [address] [place] [address] [place] [address] Health Maintenance Due Date Last Done Comments DTap/Tdap Vaccines (1 - Tdap) 1964 Zoster Vaccines (1 of 2) 1964 Adult Wellness Visit 04/22/2017 04/22/2016 Depression Screening 07/11/2022 07/11/2021 Albumin/Creatinine Ratio 06/16/2023 023, 10/30/2021, 07/11/2021 GFR 08/27/2024 02/28/2024, 11/0 07/2023, 01/18/2024, Additional history exists CKD HGB USE SMARTSET 76618 02/27/202502/27, 02/08/2024, 01/18/2024, Additional history exists CKD PHOS USE SMARTSET 79037 02/27/202502/04, 02/07/2024, 01/18/2024, Additional history exists Pneumococcal [...] filedocumented as of this encounter Care Teams Server Service Assistant Relationship Specialty Start Date End Date Sandhya Brian MD [address] [place] [address] [place] [address] PCP - General Family Medicine 10/30/21 documented as of this encounter
--- OUTSIDE RECORDS SUMMARY | 2024-04-23 00:26 | External Medical Summary | Summary of Care ---
Author Name Unknown Organization [facility] Address [address] [facility] [address] Phone [phone] Care Team Providers Care Flaring Machine Operator Name Role Phone Sandhya Brian MD Primary Care Provide r Reason for Visit * Reason Comments Acute Encounter Details Date Type Department Care Team (Latest Contact Info) Description 03/07/2024 9:00 AM EST Office Visit Family Medicine [address] [address] Sandhya Brian MD [address] [place] [address] [place] [address] COPD, group B, by GOLD 2017 classification ([facility])*; SOB (shortness of breath) Allergies No known active allergiesdocumented as of this encounter (statuses as of 03/07/2024) Medications Acyclovir 400 MG Oral Tablet (Zovirax) [...] Active Atorvastatin Calcium 10 MG Oral Tablet (Lipitor)Indicatio ns:Cerebrovascular disease, arteriosclerotic, post-stroke Take 1 Tablet by mouth in the morning. 90 Tablet 1 10/22/19 24 Active Fluticasone Propionate 50 MCG/ACT Nasal SuspensionIndicati ons:Non-seasonal allergic rhinitis due to pollen,Acute frontal sinusitis, recurrence not specified Administer 2 Sprays into each nostril in the morning. 16 g 5 12/23/19 24 Active Benzonatate 100 MG Oral Capsule (Tessalon Perles) Take 1 Capsule by mouth 3 times a day as needed for Cough. 90 Capsule 01/19/20 24 Active Montelukast Sodium 10 MG Oral Tablet (Singulair)Indicat ions:COPD, group B, by GOLD 2017 classification ([facility]) Take 1 Tablet by mouth in the morning. 30 Tablet 5 03/07/20 24 Active Arnuity Ellipta 100 MCG/ACT Inhalation Aerosol Powder Breath Activated (fluticasone Furoate) Inhale 1 Puff by mouth in the morning. Active Sulfamethoxazole-T rimethoprim 400-80 MG Oral Tablet (Bactrim) 1 Tablet. Wednesday and Wednesday07/26/19 24 024 Discontin ued(Medic ation List Clean Up) Amoxicillin-Pot Clavulanate 875-125 MG Oral Tablet (Augmentin)Indicat ions:Acute non-recurrent frontal sinusitis Take 1 Tablet by mouth in the morning and 1 Tablet before bedtime. Do all this for 7 days. 14 Tablet 12/20/19 24 024 Discontin ued(Medic ation List Clean Up) Azithromycin 250 MG Oral Tablet (Zithromax Z-Heriberto)Indications: Acute cough Take two tablets by mouth on first day, then 1 tablet daily until gone 6 Tablet 12/28/19 24 024 Discontin ued(Medic ation List Clean Up) predniSONE 10 MG Oral Tablet (Deltasone)Indicat ions:Acute cough Take 5 tabs for 2 days, 4 tabs for 2 days, 3 tabs for 2 days, 2 tabs for 2 days 1 tab for 2 days 30 Tablet 12/28/19 24 024 Discontin ued(Medic ation List Clean Up) documented as of this encounter (statuses as of 03/07/2024) Active Problems Problem Noted Date Diagnosed Date [...] as of this encounter (statuses as of 03/07/2024) Resolved Problems Problem Noted Date Diagnosed Date Resolved Date Kidney disease, chronic, sta ge III (GFR 30-59 ml/min) 01/16/2019 07/10/2020 Overview: Per CKD protocol documented as of this encounter (statuses as of 03/07/2024) Immunizations Name Administration Dates Next Due COVID-19 mRNA, LNP-s, No Pre serve, 2-Dose Series ([employer]) 06/05/2020,05/15/2020 COVID-19, MRNA-LNP, PF, 30 M CG/0.3 mL, 12 YRS AND ABOVE, IM ([facility]) 01/28/2024,03/10/2023 Covid-19, Mrna, Lnp-s, Pf, B ivalent, [...] Smoking Tobacco: Former Smokeless Tobacco: Current Snuff Tobacco Cessation:Ready to Q uit: Not Asked; Counseling Given: Not Answered Alcohol Use Standard Drinks/Week Comments Yes 0 [...] on file documented as of this encounter Last Filed Vital Signs Vital Sign Reading Time Taken Comments Blood Pressure 110/66 03/07/2024 9:08 AM EST Pulse 130 03/07/2024 9:08 AM EST Temperature 36.3 C (97.3 F) 03/07/2024 9:08 AM ES T Respiratory Rate 16 03/07/2024 9:08 AM EST Oxygen Saturation 92% 03/07/2024 9:08 AM EST Inhaled Oxygen Concentration - - Weight 94.8 kg (209 lb) 03/07/2024 9:08 AM EST Height - - Body Mass Index 29.15 12/23/2023 10:35 AM EDT documented in this encounter Progress Notes * Sandhya Brian MD - 03/07/2024 9:27 AM EST Subjective: HPI: Johan Ordoñez is a 78 year old male with hx of hearing loss, macular degeneration, kidney cysts, CKD III, BPH, seasonal allergies, mild aortic regurgitation, recent dx of Follicular lymphoma and CVA seen for PFT: both obstructive and restrictive pattern. 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 Allopurinol 100 MG Oral Tablet (Zyloprim) Take 0.5 Tablets by mouth in the morning. Phospha 250 Neutral [id number] MG Oral Tablet Take 1 Tablet by mouth in the morning. Magnesium 400 MG Oral Tablet Take by mouth daily. Takes at 1100 Aspirin 81 MG Oral Tablet Delayed Release (Aspirin 81) Take 1 Tablet by mouth in the morning. [id number]. Loratadine 10 MG Oral Tablet (Claritin) Take 1 Tablet by mouth in the morning. Atorvastatin Calcium 10 MG Oral Tablet (Lipitor) Take 1 Tablet by mouth in the morning. 90 Tablet 1 Fluticasone Propionate 50 MCG/ACT Nasal Suspension Administer 2 Sprays into each nostril in the morning. 16 g 5 Benzonatate 100 MG Oral Capsule (Tessalon Perles) Take 1 Capsule by mouth 3 times a day as needed for Cough. 90 Capsule 0 Montelukast Sodium 10 MG Oral Tablet (Singulair) Take 1 Tablet by mouth in the morning. 30 Tablet 5 Arnuity Ellipta 100 MCG/ACT Inhalation Aerosol Powder Breath Activated (fluticasone Furoate) Inhale1 Puff by mouth in the morning. No current facility-administered medications for this visit. Past Medical History: Diagnosis Date Elevated PSA 04/05/2011 Follicular lymphoma grade 3a (HCC) 05/04/2023 History of tobacco use Past Surgical History: Procedure Laterality Date COLONOSCOPY 2007 Dr. Herrera LAPAROSCOPY; CHOLECYSTECTOMY 2009 Dr. Herrera REPAIR INITIAL INGUINAL HERNIA REDUCIBLE AGE 5 OR MORE 2007 left inguinal hernia, Dr. Herrera Review of patient's allergies indicates: No Known Allergies Family History Problem Relation Name Age of Onset Heart Disorder Mother Heart Disorder Father No Past Hx Brother Neurological Disorder Mother Neurological Disorder Son Social History Tobacco Use Smoking status: Former Smokeless tobacco: Current Types: Snuff Substance Use Topics Alcohol use: Yes Comment: occasional Vaping/E-Cigarette Use Vaping/E-Cigarette Substances Vaping/E-Cigarette Devices ROS: -Per HPI OBJECTIVE: BP 110/66 | Pulse 130 | Temp 97.3 F (36.3 C) (Infrared ) | Resp 16 | Wt 209 lb (94.8 kg) | JiF342% | BMI 29.15 kg/m | BSA 2.18 m PHYSICAL EXAM: Vitals are reviewed General:. NAD, well developed HEENT:. Normal Conjunctiva, EOMI Lungs:.b/l lower lobe rales, no wheezing Psych:. AAOx3, normal affect ASSESSMENT/PLAN: I suspect exertional SOB and tachycardia likely due to lung disease - started the pt on singular and advised to take 200 mcg of the arnuity ----- showed the pt the proper way to take the inhaler COPD, group B, by GOLD 2017 classification (HCC) (Primary) - Montelukast Sodium 10 MG Oral Tablet (Singulair); Take 1 Tablet by mouth in the morning. SOB (shortness of breath) Follow-up: Return in about 1 month (around 04/07/2024). | Check-out note: With me I spent a total of 30-39 minutes (exact time 35 mins) on the date of service in preparation, delivery, and documentation of the care provided to Johan Ordoñez Jr. excluding any time spent in the performance of separately billed services or time spent by another provider/QHP. 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 Was advised to see pulmonary documented in this encounter Plan of Treatment Upcoming Encounters Date Type Department Care Team (Late st Contact Info) Description 05/01/2024 10:00 AM EST Office Visit [address] [phone] Sandhya Brian MD [address] [place] [address] [place] [address] 09/04/2024 7:20 AM EDT Office Visit [address] [phone] Sandhya Brian MD [address] [place] [address] [place] [address] Health Maintenance Due Date Last Done Comments DTap/Tdap Vaccines (1 - Tdap) 1964 Zoster Vaccines (1 of 2) 1964 Adult Wellness Visit 04/22/2017 04/22/2016 Depression Screening 07/11/2022 07/11/2021 Albumin/Creatinine Ratio 06/16/2023 023, 10/30/2021, 07/11/2021 GFR 08/27/2024 02/28/2024, 11/0 07/2023, 01/18/2024, Additional history exists CKD HGB USE SMARTSET 55037 02/27/202502/27, 02/08/2024, 01/18/2024, Additional history exists CKD PHOS USE SMARTSET 88813 02/27/202502/04, 02/07/2024, 01/18/2024, Additional history exists Pneumococcal [...] B, by GOLD 2017 classification (HCC)- Primary SOB (shortness of breath) Shortness of breath documented in this encounter Care Teams Flaring Machine Operator Relationship Specialty Start Date End Date Sandhya Brian MD [address] [place] [address] [place] [phone] PCP - General Family Medicine 10/30/21 documented as of this encounter"
--- OUTSIDE RECORDS SUMMARY | 2024-04-23 00:26 | External Medical Summary | Summary of Care ---
Author Name Unknown Organization [facility] Address [address] [facility] [place] [address] Phone [phone] Care Team Providers Care Casting House Worker Name Role Phone Sandhya Brian MD Primary Care Provide r Reason for Visit * Reason Onset Date Comments Advice 03/06/2024 Encounter Details Date Type Department Care Team (Late st Contact Info) Description 03/06/2024 Telephone Family Medicine [address] [place] [address] Sandhya Brian MD [address] [place] [address] [place] [address] Advice Allergies No known active [...] mRNA, LNP-s, No Pre serve, 2-Dose Series ([employer]) 06/05/2020,05/15/2020 COVID-19, MRNA-LNP, PF, 30 M CG/0.3 mL, 12 YRS AND ABOVE, IM ([employer] 01/28/2024,03/10/2023 Covid-19, Mrna, Lnp-s, Pf, B ivalent, [...] encounter Miscellaneous Notes * Telephone Encounter - Mary Vidal CMA - 03/06/2024 2:34 PM EST Scheduled tomorrow * Telephone Encounter - Sandhya Brian MD - 03/06/2024 1:23 PM EST Recommend a clinic eval * Telephone Encounter - Joyce Ibarra CMA - 03/06/2024 10:35 AM EST Please advise * Telephone Encounter - Jovan Nunez, firestopper installer - 03/06/2024 10:22 AM EST Pt calling for advice regarding persistent cough. Pt has had horrible cough since end of November and try/failed many medication. Saw certified nurse midwife "who stated it was pts sinuses." Pt also told he has acid reflux and asthma. Pt taking Flonase, omeprazole and inhaler. Pt's stating pt still has cough but is unsure what to do. Please contact pt's at home first, if no answer pt's might have her cell phone on her [phone]. [id number] [address] [facility] Thank you, Jovan Nnuez Photostat Operator Helper [facility] 03/06/2024,10:28 AM documented in this encounter Plan of Treatment Upcoming Encounters Date Type Department Care Team (Late st Contact Info) Description 03/07/2024 9:00 AM EST Office Visit [address] [phone] Sandhya Brian MD [address] [place] [address] [place] [address] 09/04/2024 7:20 AM EDT Office Visit [address] [phone] Sandhya Brian MD [address] [place] [address] [place] [address] Health Maintenance Due Date Last Done Comments DTap/Tdap Vaccines (1 - Tdap) 1964 Zoster Vaccines (1 of 2) 1964 Adult Wellness Visit 04/22/2017 04/22/2016 Depression Screening 07/11/2022 07/11/2021 Albumin/Creatinine Ratio 06/16/2023 023, 10/30/2021, 07/11/2021 GFR 08/27/2024 02/28/2024, 07/2023, 01/18/2024, Additional history exists CKD HGB USE SMARTSET 32885 02/27/202502/27, 02/08/2024, 01/18/2024, Additional history exists CKD PHOS USE SMARTSET 88179 02/27/202502/04, 02/07/2024, 01/18/2024, Additional history exists Pneumococcal [...] filedocumented as of this encounter Care Teams Casting House Worker Relationship Specialty Start Date End Date Sandhya Brian MD [address] [place] [address] [place] [phone] PCP - General Family Medicine 10/30/21 documented as of this encounter
--- OUTSIDE RECORDS SUMMARY | 2024-04-23 00:26 | External Medical Summary | Summary of Care ---
Author Name Unknown Organization [facility] Address [address] [facility] [place] [address] Phone [phone] Care Team Providers Care Senior Designer Name Role Phone Sandhya Brian MD Primary Care Provide r Encounter Details Date Type Department Care Team (Late st Contact Info) Description 02/08/2024 Orders Only Family Medicine [address] [place] [address] Sandhya Brian MD [address] [place] [address] [place] [address] Allergies No known active allergiesdocumented as of this encounter (statuses as of 02/08/2024) Medications Medication Sig Dispensed Refills Start Date [...] as of this encounter (statuses as of 02/08/2024) Active Problems Problem Noted Date Diagnosed Date [...] as of this encounter (statuses as of 02/08/2024) Resolved Problems Problem Noted Date Diagnosed Date Resolved Date Kidney disease, chronic, sta ge III (GFR 30-59 ml/min) 01/16/2019 07/10/2020 Overview: Per CKD protocol documented as of this encounter (statuses as of 02/08/2024) Immunizations Name Administration Dates Next Due COVID-19 mRNA, LNP-s, No Pre serve, 2-Dose Series ([employer]) 06/05/2020,05/15/2020 COVID-19, MRNA-LNP, PF, 30 M CG/0.3 mL, 12 YRS AND ABOVE, IM ([facility]) 01/28/2024,03/10/2023 Covid-19, Mrna, Lnp-s, [...] 7:20 AM EDT Office Visit Family Medicine [address] [place] [phone] Sandhya Brian MD [address] [place] [address] [place] [address] Health Maintenance Due Date Last Done Comments DTap/Tdap Vaccines (1 - Tdap) 1964 Zoster Vaccines (1 of 2) 1964 Adult Wellness Visit 04/22/2017 04/22/2016 Depression Screening 07/11/2022 07/11/2021 Albumin/Creatinine Ratio 06/16/2023 023, 10/30/2021, 07/11/2021 GFR 07/18/2024 02/07/2024, 01/03, 12/31/2023, Additional history exists CKD HGB USE SMARTSET 60355 01/17/202501/17, 12/31/2023, 12/24/2023, Additional history exists CKD PHOS USE SMARTSET 49097 01/17/2025 11/07/2023, 01/18/2024, 12/31/2023, Additional history exists Pneumococcal Vaccine: [...] Priority Date/Time Associated Diagnosis Comments CHEMISTRY-OUTSIDE Routine 02/07/2024 documented in this encounter Results * (ABNORMAL) CHEMISTRY-OUTSIDE (02/07/2024) Not all results display below - see scan for full detail OUTSIDE LAB (SEE SCANNED REPORT) Comment:SCAN INCL: FOLATE, V ITB12,CMP,LDH, MAG, PHOS, URIC ACID CREATININE 1.36(A) 0.70 - 1.30 MG/DL OUTSIDE LAB (SEE SCANNED REPORT) EGFR 53(A) >=60 ML/MIN OUTSIDE LAB (SEE SCANNED REPORT) POTASSIUM 3.9 3.5 - 5.1 MMOL/L OUTSIDE LAB (SEE SCANNED REPORT) GLUCOSE 141(A) 70 - 110 MG/DL OUTSIDE LAB (SEE SCANNED REPORT) HOURS FASTING OUTSID E LAB (SEE SCANNED REPORT) TRIGLYCERIDES-OUT SIDE LAB OUTSIDE LAB (SEE SCANNED REPORT) CHOLESTEROL-OUTSI DE LAB OUTSIDE LAB (SEE SCANNED REPORT) HDL-OUTSIDE LAB OUTS [facility] (SEE SCANNED REPORT) CHOL/HDL RATIO-OUTSIDE LAB OUTSIDE LA B (SEE SCANNED REPORT) LDL (CALCULATED)-OUTS [facility] OUTSIDE LAB (SEE SCANNED REPORT) LDL (DIRECT MEASURE)-OUTSIDE LAB OUTSIDE LAB (SEE SCANNED REPORT) HEMOGLOBIN, [id number] LAB OUTSIDE LAB (SEE SCANNED REPORT) PHOSPHORUS-OUTSID E LAB 2.2(A) 2.5 - 4.9 MG/DL OUTSIDE LAB (SEE SCANNED REPORT) PTH-OUTSIDE LAB OUTS [facility] (SEE SCANNED REPORT) MICROALBUMIN RATIO-OUTSIDE LAB OUTSIDE LA B (SEE SCANNED REPORT) PROTEIN, UA-OUTSIDE LAB OUTSIDE LAB (SEE SCANNED REPORT) HGB OUTSIDE LA B (SEE SCANNED REPORT) 02/07/2024 History Per Patient LABORATORY OUTSIDE LAB (SEE SCANNED REPORT) documented in this encounter Care Teams Senior Designer Relationship Specialty Start Date End Date Sandhya Brian MD [address] [place] [address] [place] [phone] PCP - General Family Medicine 10/30/21 documented as of this encounter
--- OUTSIDE RECORDS SUMMARY | 2024-04-23 00:26 | External Medical Summary | Summary of Care ---
Author Name Unknown Organization [facility] Address [address] [facility] [place] [address] Phone [phone] Care Team Providers Care Dry Starch Supervisor Name Role Phone Sandhya Brian MD Primary Care Provide r Encounter Details Date Type Department Care Team (Late st Contact Info) Description 02/29/2024 Orders Only Family Medicine [address] [place] [address] Sandhya Brian MD [address] [place] [address] [place] [phone] Allergies No known active allergiesdocumented as of this encounter (statuses as of 02/29/2024) Medications Acyclovir 400 MG Oral Tablet (Zovirax) [...] as of this encounter (statuses as of 02/29/2024) Active Problems Problem Noted Date Diagnosed Date [...] as of this encounter (statuses as of 02/29/2024) Resolved Problems Problem Noted Date Diagnosed Date Resolved Date Kidney disease, chronic, sta ge III (GFR 30-59 ml/min) 01/16/2019 07/10/2020 Overview: Per CKD protocol documented as of this encounter (statuses as of 02/29/2024) Immunizations Name Administration Dates Next Due COVID-19 mRNA, LNP-s, No Pre serve, 2-Dose Series ([employer]) 06/05/2020,05/15/2020 COVID-19, MRNA-LNP, PF, 30 M CG/0.3 mL, 12 YRS AND ABOVE, IM ([facility] 01/28/2024,03/10/2023 Covid-19, Mrna, Lnp-s, Pf, B [...] 7:20 AM EDT Office Visit Family Medicine [address] [place] [address] Sandhya Brian MD [address] [place] [address] [place] [address] Health Maintenance Due Date Last Done Comments DTap/Tdap Vaccines (1 - Tdap) 1964 Zoster Vaccines (1 of 2) 1964 Adult Wellness Visit 04/22/2017 04/22/2016 Depression Screening 07/11/2022 07/11/2021 Albumin/Creatinine Ratio 06/16/2023 023, 10/30/2021, 07/11/2021 GFR 08/06/2024 02/28/2024, 07/2023, 01/18/2024, Additional history exists CKD PHOS USE SMARTSET 85959 02/06/202502/04, 02/07/2024, 01/18/2024, Additional history exists CKD HGB USE SMARTSET 20286 02/07/202502/27, 02/08/2024, 01/18/2024, Additional history exists Pneumococcal Vaccine: 65+ [...] Priority Date/Time Associated Diagnosis Comments CHEMISTRY-OUTSIDE Routine 02/28/2024 documented in this encounter Results * (ABNORMAL) CHEMISTRY-OUTSIDE (02/28/2024) Not all results display below - see scan for full detail OUTSIDE LAB (SEE SCANNED REPORT) Comment:SCAN INCLUDES: CBCD, CMP, LDH, MG, PHOS, URIC ACID CREATININE 1.31(A) 0.70 - 1.30 MG/DL OUTSIDE LAB (SEE SCANNED REPORT) EGFR 56(A) >=60 ML/MIN/1.7 3M2 OUTSIDE LAB (SEE SCANNED REPORT) POTASSIUM 3.9 3.5 - 5.1 MMOL/L OUTSIDE LAB (SEE SCANNED REPORT) GLUCOSE 106 70 - 110 MG/DL OUTSIDE LAB (SEE [...] LAB OUTSIDE LAB (SEE SCANNED REPORT) HEMOGLOBIN, [id number] LAB OUTSIDE LAB (SEE SCANNED REPORT) PHOSPHORUS-OUTSID E LAB 2.7 2.5 - 4.9 MG/DL OUTSIDE LAB (SEE SCANNED REPORT) PTH-OUTSIDE LAB OUTS [facility] (SEE SCANNED REPORT) MICROALBUMIN RATIO-OUTSIDE LAB OUTSIDE LA B (SEE SCANNED REPORT) PROTEIN, UA-OUTSIDE LAB OUTSIDE LAB (SEE SCANNED REPORT) HGB 11.9(A) 13.5 - 18.0 GM/DL OUTSIDE LAB (SEE SCANNED REPORT) 02/28/2024 us Ludivina Cerrato PA-C LABORATORY Final Re sult OUTSIDE LAB (SEE SCANNED REPORT) documented in this encounter Care Teams Dry Starch Supervisor Relationship Specialty Start Date End Date Sandhya Brian MD [address] [place] [address] [place] [phone] PCP - General Family Medicine 10/30/21 documented as of this encounter
--- OUTSIDE RECORDS SUMMARY | 2024-04-23 00:26 | External Medical Summary | Summary of Care ---
Author Name Unknown Organization [facility] Address [address] [facility] [place] [address] Phone [phone] Care Team Providers Care Crystal Calibrator Name Role Phone Sandhya Brian MD Primary Care Provide r Encounter Details Date Type Department Care Team (Late st Contact Info) Description 02/22/2024 Orders Only Family Medicine [address] [place] [address] Sandhya Brian MD [address] [place] [address] [place] [id number] Allergies No known active allergiesdocumented as of this encounter (statuses as of 02/22/2024) Medications Acyclovir 400 MG Oral Tablet (Zovirax) [...] as of this encounter (statuses as of 02/22/2024) Active Problems Problem Noted Date Diagnosed Date [...] as of this encounter (statuses as of 02/22/2024) Resolved Problems Problem Noted Date Diagnosed Date Resolved Date Kidney disease, chronic, sta ge III (GFR 30-59 ml/min) 01/16/2019 07/10/2020 Overview: Per CKD protocol documented as of this encounter (statuses as of 02/22/2024) Immunizations Name Administration Dates Next Due COVID-19 mRNA, LNP-s, No Pre serve, 2-Dose Series ([employer]) 06/05/2020,05/15/2020 COVID-19, MRNA-LNP, PF, 30 M CG/0.3 mL, 12 YRS AND ABOVE, IM ([employer] [facility] 01/28/2024,03/10/2023 Covid-19, Mrna, Lnp-s, Pf, B [...] 7:20 AM EDT Office Visit Family Medicine [address] [place] [address] Sandhya Brian MD [address] [place] [address] [place] [address] Health Maintenance Due Date Last Done Comments DTap/Tdap Vaccines (1 - Tdap) 1964 Zoster Vaccines (1 of 2) 1964 Adult Wellness Visit 04/22/2017 04/22/2016 Depression Screening 07/11/2022 07/11/2021 Albumin/Creatinine Ratio 06/16/2023 023, 10/30/2021, 07/11/2021 GFR 08/06/2024 02/07/2024, 01/03, 12/31/2023, Additional history exists CKD PHOS USE SMARTSET 34745 02/06/202507/2023, 01/18/2024, 12/31/2023, Additional history exists CKD HGB USE SMARTSET 84068 02/07/202502/07, 01/18/2024, 12/31/2023, Additional history exists Pneumococcal [...] Procedure Name Priority Date/Time Associated Diagnosis Comments FVC SCREENING SPIROMETRY Routine 02/14/2024 documented in this encounter Results * FVC SCREENING SPIROMETRY (02/14/2024) 02/14/2024 us History Per Patient MEDICINE Final Result OUTSIDE LAB (SEE SCANNED REPORT) documented in this encounter Care Teams Crystal Calibrator Relationship Specialty Start Date End Date Sandhya Brian MD [address] [place] [address] [place] [address] PCP - General Family Medicine 10/30/21 documented as of this encounter
--- OUTSIDE RECORDS SUMMARY | 2024-04-23 00:27 | External Medical Summary | Summary of Care ---
Author Name Unknown Organization [facility] Address [address] [facility] [address] Phone [phone] Care Team Providers Care Charge Master Analyst Name Role Phone Sandhya Brian MD Primary Care Provide r Reason for Visit * Reason Onset Date Comments Advice 12/28/2023 Encounter Details Date Type Department Care Team (Late st Contact Info) Description 12/28/2023 Telephone Family Medicine [address] [phone] Sandhya Brian MD [address] [place] [address] [place] [address] Advice Allergies No known active allergiesdocumented as of this encounter (statuses as of 12/28/2023) Medications Medication Sig Dispensed Refills Start Date [...] for 2 days 30 Tablet 12/28/2023 Active documented as of this encounter (statuses as of 12/28/2023) Active Problems Problem Noted Date Diagnosed Date [...] as of this encounter (statuses as of 12/28/2023) Resolved Problems Problem Noted Date Diagnosed Date Resolved Date Kidney disease, chronic, sta ge III (GFR 30-59 ml/min) 01/16/2019 07/10/2020 Overview: Per CKD protocol documented as of this encounter (statuses as of 12/28/2023) Immunizations Name Administration Dates Next Due COVID-19 mRNA, LNP-s, No Pre serve, 2-Dose Series ([employer]) 06/05/2020,05/15/2020 COVID-19, MRNA-LNP, 23-24, P F, 30 MCG/0.3 mL, 12 YRS AND ABOVE, IM ([employer]) 03/10/2023 Covid-19, Mrna, Lnp-s, Pf, B ivalent, 30 Mcg, IM, 12 yrs and above (Pfizer) 12/23/2021 Pneumococcal Conjugate Vacc, 13 Valent (Prevnar) 01/05/2019 Pneumococcal Polysaccharide PPV23 (Pneumovax) 01/10/2020 Season Influenza, Quad, PF, Adjuvanted, 65+ Yrs, IM (FLUAD) 01/10/2020 Seasonal Influenza, PF, 6 M & above, [...] Telephone Encounter - Mary Vidal CMA - 12/28/2023 2:00 PM EDT He is refusing to go for a chest x-ray. He says it is not in his chest and he just had one on 12/07/2023. I said that it could have changed since then and Dr. Lombardi was told he has been coughing for weeks so he wants to repeat the chest x- ray. Patient still refusing to get it. His will get theantibiotics and steroids once filled. * Telephone Encounter - Sandhya Brian MD - 12/28/2023 1:50 PM EDT I would like to get CXR again and try zpak & prednisone * Telephone Encounter - Lissette Villarreal PHARM Tech - 12/28/2023 8:41 AM EDT called stating pt has had the cough for weeks now and dr [facility] Pt's last pill is tonight but pt is not getting any better. said pt was coughing so hard last night that he threw up. said amoxicillin is not working. said pt can be reached at [phone]. Thanks, Lissette Villarreal Baler Operator [facility] 12/28/2023,8:44 AM documented in this encounter Plan of Treatment Upcoming Encounters Date Type Department Care Team (Late st Contact Info) Description 01/18/2024 1:00 PM EDT Imaging Cardiac Studies, [facility] [address] [place] [address] 09/04/2024 7:20 AM EDT Office Visit Family Medicine [address] [place] [phone] Sandhya Brian MD [address] [place] [address] [place] [address] Scheduled Orders Name Type Priority Associated Diagnoses Orde r Schedule XR CHEST 2 VIEWS Medical Imaging Routine Acute cough Ordered: 12/28/2023 Health Maintenance Due Date Last Done Comments DTap/Tdap Vaccines (1 - Tdap) 1964 Zoster Vaccines (1 of 2) 1964 Adult Wellness Visit 04/22/2017 04/22/2016 Depression Screening 07/11/2022 07/11/2021 Albumin/Creatinine Ratio 06/16/2023 023, 10/30/2021, 07/11/2021 COVID-19 Vaccine ( season) 2023 03/10/2023, 12/23/2021, 06/05/2020, Additional history exists Influenza Vaccine (FLU shot) (#1) 2023 12/17/2022, 02/18/2022, 01/03/2021, Additional history exists GFR 06/22/2024 12/24/2023, 12/04, 12/10/2023, Additional history exists CKD HGB USE SMARTSET 85042 12/23/202412/23, 12/20/2023, 12/10/2023, Additional history exists CKD PHOS USE SMARTSET 90739 12/23/202412/05, 12/20/2023, 12/10/2023, Additional history exists Pneumococcal Vaccine: 65+ Years Completed 01/10/2020, 01/05/2019 HPV (Gardasil) Vaccine Aged Out No lo [...] as of this encounter Visit Diagnoses Diagnosis Acute cough- Primary documented in this encounter Care Teams Charge Master Analyst Relationship Specialty Start Date End Date Sandhya Brian MD [address] [place] [address] [place] [address] PCP - General Family Medicine 10/30/21 documented as of this encounter
--- OUTSIDE RECORDS SUMMARY | 2024-04-23 00:27 | External Medical Summary | Summary of Care ---
Author Name Unknown Organization [facility] Address [address] [facility] [place] [address] Phone [phone] Care Team Providers Care Medical Delivery Technician Name Role Phone Sandhya Brian MD Primary Care Provide r Encounter Details Date Type Department Care Team (Late st Contact Info) Description 01/28/2024 11:00 AM EDT Immunization Ancillary [address] [place] [address] [place] [address] [place] [address] Arrived Allergies No known active allergiesdocumented as of this encounter (statuses as of 01/28/2024) Medications Medication Sig Dispensed Refills Start Date [...] as of this encounter (statuses as of 01/28/2024) Active Problems Problem Noted Date Diagnosed Date [...] as of this encounter (statuses as of 01/28/2024) Resolved Problems Problem Noted Date Diagnosed Date Resolved Date Kidney disease, chronic, sta ge III (GFR 30-59 ml/min) 01/16/2019 07/10/2020 Overview: Per CKD protocol documented as of this encounter (statuses as of 01/28/2024) Immunizations Name Administration Dates Next Due COVID-19 mRNA, LNP-s, No Pre serve, 2-Dose Series ([employer]) 06/05/2020,05/15/2020 COVID-19, MRNA-LNP, 23-24, P F, 30 MCG/0.3 mL, 12 YRS AND ABOVE, IM [facility] 03/10/2023 COVID-19, MRNA-LNP, 24-25, P R, 30MCG/0.3ML, IM, 12YRS AND ABOVE ([employer]) 01/28/2024 Covid-19, Mrna, Lnp-s, Pf, B ivalent, 30 Mcg, IM, 12 yrs and above ([employer]) 12/23/2021 Pneumococcal Conjugate Vacc, 13 Valent (Prevnar) [...] 7:20 AM EDT Office Visit Family Medicine [address] [place] [phone] Sandhya Brian MD [address] [place] [address] [place] [address] Health Maintenance Due Date Last Done Comments DTap/Tdap Vaccines (1 - Tdap) 1964 Zoster Vaccines (1 of 2) 1964 Adult Wellness Visit 04/22/2017 04/22/2016 Depression Screening 07/11/2022 07/11/2021 Albumin/Creatinine Ratio 06/16/2023 023, 10/30/2021, 07/11/2021 GFR 07/18/2024 01/18/2024, 12/05, 12/24/2023, Additional history exists CKD HGB USE SMARTSET 16443 01/17/202501/17, 12/31/2023, 12/24/2023, Additional history exists CKD PHOS USE SMARTSET 38810 01/17/202501/03, 12/31/2023, 12/24/2023, Additional history exists Pneumococcal Vaccine: 65+ Years [...] filedocumented as of this encounter Care Teams Medical Delivery Technician Relationship Specialty Start Date End Date Sandhya Brian MD [address] [place] [address] [place] [phone] PCP - General Family Medicine 10/30/21 documented as of this encounter
--- OUTSIDE RECORDS SUMMARY | 2024-04-23 00:27 | External Medical Summary | Summary of Care ---
Author Name Unknown Organization [facility] Address [address] [facility] [place] [address] Phone [phone] Care Team Providers Care Real Estate Agent Name Role Phone Sandhya Brian MD Primary Care Provide r Encounter Details Date Type Department Care Team (Late st Contact Info) Description 01/20/2024 Orders Only Family Medicine [address] [place] [address] Sandhya Brian MD [address] [place] [address] [place] [address] Allergies No known active allergiesdocumented as of this encounter (statuses as of 01/20/2024) Medications Medication Sig Dispensed Refills Start Date [...] as of this encounter (statuses as of 01/20/2024) Active Problems Problem Noted Date Diagnosed Date [...] as of this encounter (statuses as of 01/20/2024) Resolved Problems Problem Noted Date Diagnosed Date Resolved Date Kidney disease, chronic, sta ge III (GFR 30-59 ml/min) 01/16/2019 07/10/2020 Overview: Per CKD protocol documented as of this encounter (statuses as of 01/20/2024) Immunizations Name Administration Dates Next Due COVID-19 mRNA, LNP-s, No Pre serve, 2-Dose Series ([employer]) 06/05/2020,05/15/2020 COVID-19, MRNA-LNP, 23-24, P F, 30 [...] 7:20 AM EDT Office Visit Family Medicine [address] [place] [phone] Sandhya Brian MD [address] [place] [address] [place] [address] Health Maintenance Due Date Last Done Comments DTap/Tdap Vaccines (1 - Tdap) 1964 Zoster Vaccines (1 of 2) 1964 Adult Wellness Visit 04/22/2017 04/22/2016 Depression Screening 07/11/2022 07/11/2021 Albumin/Creatinine Ratio 06/16/2023 023, 10/30/2021, 07/11/2021 COVID-19 Vaccine ( season) 2023 03/10/2023, 12/23/2021, 06/05/2020, Additional history exists Influenza Vaccine (FLU shot) (#1) 2023 12/17/2022, 02/18/2022, 01/03/2021, Additional history exists GFR 06/29/2024 01/18/2024, 12/05, 12/24/2023, Additional history exists CKD HGB USE SMARTSET 19851 12/30/202401/17, 12/31/2023, 12/24/2023, Additional history exists CKD PHOS USE SMARTSET 99432 12/30/202401/03, 12/31/2023, 12/24/2023, Additional history exists Pneumococcal Vaccine: [...] Priority Date/Time Associated Diagnosis Comments CHEMISTRY-OUTSIDE Routine 01/18/2024 documented in this encounter Results * (ABNORMAL) CHEMISTRY-OUTSIDE (01/18/2024) Not all results display below - see scan for full detail OUTSIDE LAB (SEE SCANNED REPORT) Comment:SCAN INCLUDES: CBCD, CMP, LDH, MG, PHOS, URIC ACID CREATININE 1.29 0.70 - 1.30 MG/DL OUTSIDE LAB (SEE SCANNED REPORT) EGFR 57(A) >=60 ML/MIN OUTSIDE LAB (SEE SCANNED REPORT) POTASSIUM 4.2 3.5 - 5.1 MMOL/L OUTSIDE LAB (SEE SCANNED REPORT) GLUCOSE 121(A) 70 - 110 MG/DL OUTSIDE LAB (SEE [...] LAB OUTSIDE LAB (SEE SCANNED REPORT) HEMOGLOBIN, [id number] LAB OUTSIDE LAB (SEE SCANNED REPORT) PHOSPHORUS-OUTSID E LAB 2.2(A) 2.5 - 4.9 MG/DL OUTSIDE LAB (SEE SCANNED REPORT) PTH-OUTSIDE LAB OUTS [facility] (SEE SCANNED REPORT) MICROALBUMIN RATIO-OUTSIDE LAB OUTSIDE [facility] (SEE SCANNED REPORT) PROTEIN, UA-OUTSIDE LAB OUTSIDE LAB (SEE SCANNED REPORT) HGB 10.7(A) 13.5 - 18.0 GM/DL OUTSIDE LAB (SEE SCANNED REPORT) 01/18/2024 Ludivina Cerrato PA-C LABORATORY OUTSIDE LAB (SEE SCANNED REPORT) documented in this encounter Care Teams Real Estate Agent Relationship Specialty Start Date End Date Sandhya Brian MD [address] [place] [address] [place] [address] PCP - General Family Medicine 10/30/21 documented as of this encounter
--- OUTSIDE RECORDS SUMMARY | 2024-04-23 00:27 | External Medical Summary | Summary of Care ---
Author Name Unknown Organization [facility] Address [address] [facility] [place] [address] Phone [phone] Care Team Providers Care Dumper Mold Cleaner Name Role Phone Sandhya Brian MD Primary Care Provide r Reason for Visit * Reason Comments Re-Check Encounter Details Date Type Department Care Team (Late st Contact Info) Description 12/23/2023 10:40 AM EDT Office Visit Family Medicine [address] [phone] Sandhya Brian MD [address] [place] [address] [place] [address] Follicular lymphoma grade IIIa, unspecified body region (HCC)*; Non-seasonal allergic rhinitis due to pollen; Acute frontal sinusitis, recurrence not specified; Cerebrovascular disease, arteriosclerotic, post-stroke Allergies No known active allergiesdocumented as of this encounter (statuses as of 12/23/2023) Medications Medication Sig Dispensed Refills Start Date [...] mouth in the morning. Takes A1100. Active Sulfamethoxazole- Trimethoprim 400-80 MG Oral Tablet (Bactrim) 1 Tablet. Wednesday and Wednesday07/26/2023 Active Loratadine 10 MG Oral Tablet (Claritin) Take 1 Tablet by mouth in the morning. Active Atorvastatin Calcium 10 MG Oral Tablet (Lipitor)Indicati ons:Cerebrovascul ar disease, arteriosclerotic, post-stroke Take 1 Tablet by mouth in the morning. 90 Tablet 1 10/22/2023 Active Amoxicillin-Pot Clavulanate 875-125 MG Oral Tablet (Augmentin)Indica tions:Acute non-recurrent frontal sinusitis Take 1 Tablet by mouth in the morning and 1 Tablet before bedtime. Do all this for 7 days. 14 Tablet 12/20/2023 12/27/2023 Active Fluticasone Propionate 50 MCG/ACT Nasal SuspensionIndicat ions:Non-seasonal allergic rhinitis due to pollen,Acute frontal sinusitis, recurrence not specified Administer 2 Sprays into each nostril in the morning. 16 g 5 12/23/2023 Active Fluticasone Propionate 50 MCG/ACT Nasal SuspensionIndicat ions:Non-seasonal allergic rhinitis due to pollen Administer 2 Sprays into each nostril daily. 16 g 5 01/10/2020 12/23/2023 Discontinue d(Refill) Ondansetron HCl 8 MG Oral Tablet (Zofran) Take 1 Tablet by mouth every 8 hours as needed. 07/16/2023 12/23/2023 Discontinue d(Medicatio n List Clean Up) Famotidine 10 MG Oral Tablet (Pepcid) Take 1 Tablet by mouth 2 times a day as needed for Heartburn. 12/23/2023 Discontinue d(Medicatio n List Clean Up) Prochlorperazine Maleate 5 MG Oral Tablet (Compazine) 1 Tablet every 6 hours as needed. 07/26/2023 12/23/2023 Discontinue d(Medicatio n List Clean Up) documented as of this encounter (statuses as of 12/23/2023) Active Problems Problem Noted Date Diagnosed Date [...] as of this encounter (statuses as of 12/23/2023) Resolved Problems Problem Noted Date Diagnosed Date Resolved Date Kidney disease, chronic, sta ge III (GFR 30-59 ml/min) 01/16/2019 07/10/2020 Overview: Per CKD protocol documented as of this encounter (statuses as of 12/23/2023) Immunizations Name Administration Dates Next Due COVID-19 mRNA, LNP-s, No Pre serve, 2-Dose Series ([employer]) 06/05/2020,05/15/2020 COVID-19, MRNA-LNP, 23-24, P F, 30 MCG/0.3 mL, 12 YRS AND ABOVE, IM ([employer]) 03/10/2023 Covid-19, Mrna, Lnp-s, Pf, B ivalent, [...] Sign Reading Time Taken Comments Blood Pressure 102/68 12/23/2023 10:35 AM EDT Pulse 115 12/23/2023 10:35 AM EDT Temperature 36.1 C (97 F) 12/23/2023 10:35 AM EDT Respiratory Rate - - Oxygen Saturation 95% 12/23/2023 10:35 AM EDT Inhaled Oxygen Concentration - - Weight 93 kg (205 lb) 12/23/2023 10:35 AM EDT Height 180.3 cm (5' 11") 12/23/2023 10:35 AM EDT Body Mass Index 28.59 12/23/2023 10:35 AM EDT documented in this encounter Progress Notes * Sandhya Brian MD - 12/23/2023 10:43 AM EDT Subjective: HPI: Johan Kohli Smita Kuo is a 78 year old male with hx of hearing loss, macular degeneration, kidney cysts, CKD III, BPH, seasonal allergies, mild aortic regurgitation, recent dx of Follicular lymphoma and CVA seen for Pt was recently started on augmentin for sinusitis - improving cough - CXR: no sign of PNA Follicular lymphoma - following up with [facility] - currently on chemo - PET scan on 12/26 - follow up oncology appt on 01/02 Currently on aspirin and statin for hx of CVA Patient Active Problem List Diagnosis History of [...] 1 Tablet by mouth in the morning. [id number]. Sulfamethoxazole-Trimethoprim 400-80 MG Oral Tablet (Bactrim) 1 Tablet. Wednesday and Wednesday Loratadine 10 MG Oral Tablet (Claritin) Take 1 Tablet by mouth in the morning. Atorvastatin Calcium 10 MG Oral Tablet (Lipitor) Take 1 Tablet by mouth in the morning. 90 Tablet 1 Amoxicillin-Pot Clavulanate 875-125 MG Oral Tablet (Augmentin) Take 1 Tablet by mouth in the morning and 1 Tablet before bedtime. Do all this for 7 days. 14 Tablet 0 Fluticasone Propionate 50 MCG/ACT Nasal Suspension Administer 2 Sprays into each nostril in the morning. 16 g 5 Ondansetron HCl 8 MG Oral Tablet (Zofran) Take 1 Tablet by mouth every 8 hours as needed. (Patient not taking: Reported on 12/23/2023) Famotidine 10 MG Oral Tablet (Pepcid) Take 1 Tablet by mouth 2 times a day as needed for Heartburn.(Patient not taking: Reported on 12/23/2023) Prochlorperazine Maleate 5 MG Oral Tablet (Compazine) 1 Tablet every 6 hours as needed. (Patient not taking: Reported on 12/23/2023) No current facility-administered medications for this visit. [...] Vaping/E-Cigarette Devices ROS: -Per HPI OBJECTIVE: BP 102/68 | Pulse 115 | Temp 36.1 C (97 F) (Tympanic) | Ht 1.803 m (5' 11") | Wt 93 kg (205 lb)| SpO2 95% | BMI 28.59 kg/m | BSA 2.16 m PHYSICAL EXAM: Vitals are reviewed General:. NAD, well developed HEENT:. Normal Conjunctiva, EOMI Cardiac:. Normal S1, S2, no murmur Lungs:. CTA, no wheezing or crackles MSK:. Normal gait Psych:. AAOx3, normal affect ASSESSMENT/PLAN: Lungs CTA Advised the pt to increase water intake Follicular lymphoma grade IIIa, unspecified body region (HCC) (Primary) - completed the Chemo - sched to get PET CT Non-seasonal allergic rhinitis due to pollen - Fluticasone Propionate 50 MCG/ACT Nasal Suspension; Administer 2 Sprays into each nostril in the morning. Acute frontal sinusitis, recurrence not specified - Fluticasone Propionate 50 MCG/ACT Nasal Suspension; Administer 2 Sprays into each nostril in themorning. Cerebrovascular disease, arteriosclerotic, post-stroke - continue statin and aspirin Follow Up: Return in about 6 months (around 06/21/2024). Sandhya Brian MD Family medicine, [address] [address] documented in this encounter Nursing Notes * Shania Cunningham LPN - 12/23/2023 10:37 AM EDT Yearly recheck Still not feeling well Just started antibiotic Feels SOB with activity documented in this encounter Plan of Treatment Upcoming Encounters Date Type Department Care Team (Late st Contact Info) Description 01/18/2024 1:00 PM EDT Imaging Cardiac Studies, [facility] [address] [place] [address] 09/04/2024 7:20 AM EDT Office Visit Family Medicine [address] [phone] Sandhya Brian MD [address] [place] [address] [place] [address] Health Maintenance Due Date Last Done Comments DTap/Tdap Vaccines (1 - Tdap) 1964 Zoster Vaccines (1 of 2) 1964 Adult Wellness Visit 04/22/2017 04/22/2016 Depression Screening 07/11/2022 07/11/2021 Albumin/Creatinine Ratio 06/16/2023 023, 10/30/2021, 07/11/2021 COVID-19 Vaccine ( season) 2023 03/10/2023, 12/23/2021, 06/05/2020, Additional history exists Influenza Vaccine (FLU shot) (#1) 2023 12/17/2022, 02/18/2022, 01/03/2021, Additional history exists GFR 06/18/2024 12/20/2023, 09/2023, 12/03/2023, Additional history exists CKD HGB USE SMARTSET 75282 12/19/202412/19, 12/10/2023, 12/03/2023, Additional history exists CKD PHOS USE SMARTSET 60887 12/19/202412/04, 12/10/2023, 12/03/2023, Additional history exists Pneumococcal Vaccine: 65+ Years [...] as of this encounter Visit Diagnoses Diagnosis Follicular lymphoma grade IIIa, unspecified body region (HCC)- Primary Non-seasonal allergic rhinitis due to pollen Acute frontal sinusitis, recurrence not specified Cerebrovascular disease, arteriosclerotic, post-stroke Cerebral atherosclerosis documented in this encounter Care Teams Dumper Mold Cleaner Relationship Specialty Start Date End Date Sandhya Brian MD [address] [place] [address] [place] [address] PCP - General Family Medicine 10/30/21 documented as of this encounter
--- OUTSIDE RECORDS SUMMARY | 2024-04-23 00:27 | External Medical Summary | Summary of Care ---
Author Name Unknown Organization [facility] Address [address] [facility] [place] [address] Phone [phone] Care Team Providers Care Cytogenetic Technologist Name Role Phone Sandhya Brian MD Primary Care Provide r Encounter Details Date Type Department Care Team (Late st Contact Info) Description 12/28/2023 Orders Only Family Medicine [address] [place] [address] Sandhya Brian MD [address] [place] [address] [place] [address] Allergies No known active allergiesdocumented as of [...] the morning. 16 g 5 12/23/2023 Active documented as of this encounter (statuses [...] mRNA, LNP-s, No Pre serve, 2-Dose Series ([employer]) 06/05/2020,05/15/2020 COVID-19, MRNA-LNP, 23-24, P F, 30 MCG/0.3 mL, 12 YRS AND ABOVE, IM ([facility]) 03/10/2023 Covid-19, Mrna, Lnp-s, Pf, B ivalent, [...] 01/18/2024 1:00 PM EDT Imaging Cardiac Studies, [facility] [place] [address] 09/04/2024 7:20 AM EDT Office Visit Family Medicine [facility] [place] [place] [address] Sandhya Brian MD [address] [place] [address] [place] [address] Health Maintenance Due Date Last Done Comments DTap/Tdap Vaccines (1 - Tdap) 1964 Zoster Vaccines (1 of 2) 1964 Adult Wellness Visit 04/22/2017 04/22/2016 Depression Screening 07/11/2022 07/11/2021 Albumin/Creatinine Ratio 06/16/2023 023, 10/30/2021, 07/11/2021 COVID-19 Vaccine ( season) 2023 03/10/2023, 12/23/2021, 06/05/2020, Additional history exists Influenza Vaccine (FLU shot) (#1) 2023 12/17/2022, 02/18/2022, 01/03/2021, Additional history exists GFR 06/18/2024 12/24/2023, 12/04, 12/10/2023, Additional history exists CKD HGB USE SMARTSET 50013 12/19/202412/19, 12/10/2023, 12/03/2023, Additional history exists CKD PHOS USE SMARTSET 95282 12/19/202412/05, 12/20/2023, 12/10/2023, Additional history exists Pneumococcal Vaccine: [...] Priority Date/Time Associated Diagnosis Comments CHEMISTRY-OUTSIDE Routine 12/24/2023 documented in this encounter Results * (ABNORMAL) CHEMISTRY-OUTSIDE (12/24/2023) Not all results display below - see scan for full detail OUTSIDE LAB (SEE SCANNED REPORT) Comment:SCAN INCLUDES: CMP, LDH, MG, PHOS, URIC ACID CREATININE 1.25 0.70 - 1.30 MG/DL OUTSIDE LAB (SEE SCANNED REPORT) EGFR 59(A) >=60 ML/MIN/1.7 3M2 OUTSIDE LAB (SEE SCANNED REPORT) POTASSIUM 4.6 3.5 - 5.1 MMOL/L OUTSIDE LAB (SEE SCANNED REPORT) GLUCOSE 110 70 - 110 MG/DL OUTSIDE LAB (SEE [...] LAB OUTSIDE LAB (SEE SCANNED REPORT) HEMOGLOBIN, [id number] LAB OUTSIDE LAB (SEE SCANNED REPORT) PHOSPHORUS-OUTSID E LAB 2.3(A) 2.5 - 4.9 MG/DL OUTSIDE LAB (SEE SCANNED REPORT) PTH-OUTSIDE LAB OUTS [facility] LAB (SEE SCANNED REPORT) MICROALBUMIN RATIO-OUTSIDE LAB OUTSIDE LA B (SEE SCANNED REPORT) PROTEIN, UA-OUTSIDE LAB OUTSIDE LAB (SEE SCANNED REPORT) HGB OUTSIDE LA B (SEE SCANNED REPORT) 12/24/2023 Ludivina Cerrato PA-C LABORATORY OUTSIDE LAB (SEE SCANNED REPORT) documented in this encounter Care Teams Cytogenetic Technologist Relationship Specialty Start Date End Date Sandhya Brian MD [address] [place] [address] [place] [phone] PCP - General Family Medicine 10/30/21 documented as of this encounter
--- OUTSIDE RECORDS SUMMARY | 2024-04-23 00:27 | External Medical Summary | Summary of Care ---
Author Name Unknown Organization [facility] Address [address] [facility] [place] [address] Phone [phone] Care Team Providers Care Paper Cup Handle Machine Operator Name Role Phone Sandhya Brian MD Primary Care Provide r Encounter Details Date Type Department Care Team (Late st Contact Info) Description 01/04/2024 Orders Only Family Medicine [address] [place] [phone] Sandhya Brian MD [address] [place] [address] [place] [address] Allergies No known active allergiesdocumented as of this encounter (statuses as of 01/04/2024) Medications Medication Sig Dispensed Refills Start Date [...] as of this encounter (statuses as of 01/04/2024) Active Problems Problem Noted Date Diagnosed Date [...] as of this encounter (statuses as of 01/04/2024) Resolved Problems Problem Noted Date Diagnosed Date Resolved Date Kidney disease, chronic, sta ge III (GFR 30-59 ml/min) 01/16/2019 07/10/2020 Overview: Per CKD protocol documented as of this encounter (statuses as of 01/04/2024) Immunizations Name Administration Dates Next Due COVID-19 mRNA, LNP-s, No Pre serve, 2-Dose Series (Pf[employer]) 06/05/2020,05/15/2020 COVID-19, MRNA-LNP, 23-24, P F, 30 [...] 01/18/2024 1:00 PM EDT Imaging Cardiac Studies, [facility] [address] [place] [address] 09/04/2024 7:20 AM EDT Office Visit Family Medicine [address] [place] [phone] Sandhya Brian MD [address] [place] [address] [place] [address] Health Maintenance Due Date Last Done Comments DTap/Tdap Vaccines (1 - Tdap) 1964 Zoster Vaccines (1 of 2) 1964 Adult Wellness Visit 04/22/2017 04/22/2016 Depression Screening 07/11/2022 07/11/2021 Albumin/Creatinine Ratio 06/16/2023 023, 10/30/2021, 07/11/2021 COVID-19 Vaccine ( season) 2023 03/10/2023, 12/23/2021, 06/05/2020, Additional history exists Influenza Vaccine (FLU shot) (#1) 2023 12/17/2022, 02/18/2022, 01/03/2021, Additional history exists GFR 06/29/2024 12/31/2023, 12/05, 12/20/2023, Additional history exists CKD HGB USE SMARTSET 04507 12/30/202412/30, 12/24/2023, 12/20/2023, Additional history exists CKD PHOS USE SMARTSET 98806 12/30/202412/05, 12/24/2023, 12/20/2023, Additional history exists Pneumococcal Vaccine: 65+ Years [...] Priority Date/Time Associated Diagnosis Comments CHEMISTRY-OUTSIDE Routine 12/31/2023 documented in this encounter Results * (ABNORMAL) CHEMISTRY-OUTSIDE (12/31/2023) Not all results display below - see scan for full detail OUTSIDE LAB (SEE SCANNED REPORT) Comment:SCAN INCLUDES - CBCD , CMP, LDH, MAGNESIUM, PHOSPHORUS, URIC ACID CREATININE 1.33(A) 0.70 - 1.30 MG/DL OUTSIDE LAB (SEE SCANNED REPORT) EGFR 55(L) >=60 ML/MIN/1.7 3M2 OUTSIDE LAB (SEE SCANNED REPORT) POTASSIUM 4.4 3.5 - 5.1 MMOL/L OUTSIDE LAB (SEE SCANNED REPORT) GLUCOSE 129(A) 70 - 110 MG/DL OUTSIDE LAB (SEE [...] LAB OUTSIDE LAB (SEE SCANNED REPORT) HEMOGLOBIN, [id number] LAB OUTSIDE LAB (SEE SCANNED REPORT) PHOSPHORUS-OUTSID E LAB 2.0(A) 2.5 - 4.9 MG/DL OUTSIDE LAB (SEE SCANNED REPORT) PTH-OUTSIDE LAB OUTS [facility] (SEE SCANNED REPORT) MICROALBUMIN RATIO-OUTSIDE LAB OUTSIDE LA B (SEE SCANNED REPORT) PROTEIN, UA-OUTSIDE LAB OUTSIDE LAB (SEE SCANNED REPORT) HGB 10.7(A) 13.5 - 18.0 GM/DL OUTSIDE LAB (SEE SCANNED REPORT) 12/31/2023 Ludivina Cerrato PA-C LABORATORY OUTSIDE LAB (SEE SCANNED REPORT) documented in this encounter Care Teams Paper Cup Handle Machine Operator Relationship Specialty Start Date End Date Sandhya Brian MD [address] [place] [address] [place] [address] PCP - General Family Medicine 10/30/21 documented as of this encounter
--- OUTSIDE RECORDS SUMMARY | 2024-04-23 00:27 | External Medical Summary | Summary of Care ---
Author Name Unknown Organization [facility] Address [address] [facility] [place] [address] Phone [phone] Care Team Providers Care Cold Type Composing Machine Operator Name Role Phone Sandhya Brian MD Primary Care Provide r Encounter Details Date Type Department Care Team (Late st Contact Info) Description 12/28/2023 Orders Only Family Medicine [address] [place] [phone] Sandhya Brian MD [address] [place] [address] [place] [address] Allergies No known active allergiesdocumented as of [...] mRNA, LNP-s, No Pre serve, 2-Dose Series ([employer]) 06/05/2020,05/15/2020 COVID-19, MRNA-LNP, 23-24, P F, 30 MCG/0.3 mL, 12 YRS AND ABOVE, IM ([facility]) 03/10/2023 Covid-19, Mrna, Lnp-s, Pf, B ivalent, [...] PM EDT Imaging Cardiac Studies, [facility] [address] [place] [address] 09/04/2024 7:20 AM EDT Office Visit Family Medicine [facility] [place] [place] [address] Sandhya Brian MD [address] [place] [address] [place] [address] Health Maintenance Due Date Last Done Comments [...] Additional history exists CKD HGB USE SMARTSET 43557 12/19/202412/23, 12/20/2023, 12/10/2023, Additional history exists CKD PHOS USE SMARTSET 14300 12/23/202412/05, 12/20/2023, 12/10/2023, Additional history exists Pneumococcal [...] OUTSIDE LAB (SEE SCANNED REPORT) Comment:SCAN INCLUDES: CBCD CREATININE OUTSIDE L AB (SEE SCANNED [...] LAB OUTSIDE LAB (SEE SCANNED REPORT) HEMOGLOBIN, [id number] LAB OUTSIDE LAB (SEE SCANNED REPORT) PHOSPHORUS-OUTSID E LAB OUTSIDE LAB (SEE SCANNED REPORT) PTH-OUTSIDE LAB OUTS [facility] (SEE SCANNED REPORT) MICROALBUMIN RATIO-OUTSIDE LAB OUTSIDE LA B (SEE SCANNED REPORT) PROTEIN, UA-OUTSIDE LAB OUTSIDE LAB (SEE SCANNED REPORT) HGB 12.4(A) 13.5 - 18.0 GM/DL OUTSIDE LAB (SEE SCANNED REPORT) 12/24/2023 Ludivina Cerrato PA-C LABORATORY OUTSIDE LAB (SEE SCANNED REPORT) documented in this encounter Care Teams Cold Type Composing Machine Operator Relationship Specialty Start Date End Date Sandhya Brian MD [address] [place] [address] [place] [phone] PCP - General Family Medicine 10/30/21 documented as of this encounter
--- OUTSIDE RECORDS SUMMARY | 2024-04-23 00:27 | External Medical Summary | Summary of Care ---
Author Name Unknown Organization [facility] Address [address] [facility] [place] [address] Phone [phone] Care Team Providers Care Hyperion Administrator Name Role Phone Sandhya Brian MD Primary Care Provide r Encounter Details Date Type Department Care Team (Late st Contact Info) Description 12/27/2023 Result Scan Unspecified Department <No scans attached> Allergies No known active allergiesdocumented as of this encounter (statuses as of 12/29/2023) Medications Medication Sig Dispensed Refills Start Date [...] as of this encounter (statuses as of 12/29/2023) Active Problems Problem Noted Date Diagnosed Date [...] as of this encounter (statuses as of 12/29/2023) Resolved Problems Problem Noted Date Diagnosed Date Resolved Date Kidney disease, chronic, sta ge III (GFR 30-59 ml/min) 01/16/2019 07/10/2020 Overview: Per CKD protocol documented as of this encounter (statuses as of 12/29/2023) Immunizations Name Administration Dates Next Due COVID-19 mRNA, LNP-s, No Pre serve, 2-Dose Series ([employer]) 06/05/2020,05/15/2020 COVID-19, MRNA-LNP, 23-24, P F, 30 MCG/0.3 mL, 12 YRS AND ABOVE, IM ([employer]) 03/10/2023 Covid-19, Mrna, Lnp-s, Pf, B ivalent, 30 Mcg, IM, 12 yrs and above ([employer]) 12/23/2021 Pneumococcal Conjugate Vacc, 13 Valent (Prevnar) [...] 01/18/2024 1:00 PM EDT Imaging Cardiac Studies, [facility] [address] [facility] [place] [address] 09/04/2024 7:20 AM EDT Office Visit Family [address] [phone] Sandhya Brian MD [address] [place] [address] [place] [address] Health Maintenance Due Date [...] Additional history exists CKD HGB USE SMARTSET 67401 12/23/202412/23, 12/20/2023, 12/10/2023, Additional history exists CKD PHOS USE SMARTSET 06068 12/23/202412/05, 12/20/2023, 12/10/2023, Additional history exists Pneumococcal [...] Procedure Name Priority Date/Time Associated Diagnosis Comments RADIOLOGY SCANNED RESULT 12/27/2023 documented in this encounter Results * RADIOLOGY SCANNED RESULT (12/27/2023) 12/27/2023 No Physician Data Unknown DIAGNOSTIC RAD IOLOGY SERVICES documented in this encounter Care Teams Hyperion Administrator Relationship Specialty Start Date End Date Sandhya Brian MD [address] [place] [address] [place] [address] PCP - General Family Medicine 10/30/21 documented as of this encounter
--- OUTSIDE RECORDS SUMMARY | 2024-04-23 00:27 | External Medical Summary | Summary of Care ---
Author Name Unknown Organization [facility] Address [address] [facility] [address] Phone [phone] Care Team Providers Care Instructor Industrial Design Name Role Phone Sandhya Brian MD Primary Care Provide r Reason for Visit * Reason Onset Date Comments Advice 12/28/2023 Encounter Details Date Type Department Care Team (Late st Contact Info) Description 12/28/2023 Telephone Family Medicine [address] [phone] Sandhya Brian MD [address] [place] [address] [place] [address] Advice Allergies No known active [...] mRNA, LNP-s, No Pre serve, 2-Dose Series ([employer]) 06/05/2020,05/15/2020 COVID-19, MRNA-LNP, 23-24, P F, 30 [...] [facility] tonight but pt is not getting any better. said pt was coughing so hard last night that he threw up. said amoxicillin is not working. said pt can be reached at [phone]. Thanks, Lissette Villarreal Multicut Line Operator [facility] 12/28/2023,8:44 AM documented in this encounter Plan of Treatment Upcoming Encounters Date Type Department Care Team (Late st Contact Info) Description 01/18/2024 1:00 PM EDT Imaging Cardiac Studies, [facility] [address] [place] [address] 09/04/2024 7:20 AM EDT Office Visit Family Medicine [address] [place] [phone] Sandhya Brian MD [address] [place] [address] [place] [address] Scheduled Orders Name Type Priority Associated Diagnoses [...] Additional history exists CKD HGB USE SMARTSET 00815 12/23/202412/23, 12/20/2023, 12/10/2023, Additional history exists CKD PHOS USE SMARTSET 10017 12/23/202412/05, 12/20/2023, 12/10/2023, Additional history exists Pneumococcal [...] Primary documented in this encounter Care Teams Instructor Industrial Design Relationship Specialty Start Date End Date Sandhya Brian MD [address] [place] [address] [place] [address] PCP - General Family Medicine 10/30/21 documented as of this encounter
--- OUTSIDE RECORDS SUMMARY | 2024-04-23 00:27 | External Medical Summary | Summary of Care ---
Author Name Unknown Organization [facility] Address [address] [facility] [address] Phone [phone] Care Team Providers Care Load Checker Name Role Phone Sandhya Brian MD Primary Care Provide r Reason for Visit * Reason Onset Date Comments Med Request 01/17/2024 Encounter Details Date Type Department Care Team (Late st Contact Info) Description 01/17/2024 Telephone Family Medicine [address] [phone] Sandhya Brian MD [address] [place] [address] [place] [address] Med Request Allergies No known [...] mRNA, LNP-s, No Pre serve, 2-Dose Series ([employer] 06/05/2020,05/15/2020 COVID-19, MRNA-LNP, 23-24, P F, 30 MCG/0.3 mL, 12 YRS AND ABOVE, IM [facility] 03/10/2023 Covid-19, Mrna, Lnp-s, Pf, B ivalent, [...] encounter Miscellaneous Notes * Telephone Encounter - Kina Livingston CPhT - 01/19/2024 2:34 PM EDT Pt spouse calling to request Benzonatate 100 MG Oral Capsule (Tessalon Perles). Informed pt that RXis available at their pharmacy. Pt spouse verbalized understanding and stated they will check with their pharmacy regarding this medication. Thank you, Kina Livingston CPhT Cat Hooker II [facility] 01/19/2024,2:34 PM * Telephone Encounter - Tessa Andrews MD - 01/19/2024 1:00 PM EDT Sent to pharmacy. Schedule appt if not improving. * Telephone Encounter - Sheri Bee RPh - 01/18/2024 2:30 PM EDT Patient (Galina) calling in asking for a script for tessalon pearles for patient. States patient has had persistent cough since end of November. Pended tessalon pearles for consideration: Pending Prescriptions: Disp Refills Benzonatate 100 MG Oral Capsule (Tessalon*90 Cap*0 Sig: Take 1 Capsule by mouth 3 times a day as needed for Cough. Please sign if agreeable and route back so I can advise him. Thank you, Sheri Bee, OswaldD Clinical Pharmacist [facility] ([facility]) 01/18/24 2:38 PM [phone] * Telephone Encounter - Juliane Camacho PHARM Tech - 01/18/2024 2:26 PM EDT Pt calling with complaints of Cough with yellow mucus since November and is requesting a medication be prescribed. Pt did not want to schedule an appointment at this time. Call details was completed, please refer to this for further information. Thank you, Juliane Camacho Cat Hooker I [facility]) 01/18/2024,2:26 PM * Telephone Encounter - Melisa Bales OSA - 01/17/2024 9:04 AM EDT Reason for patient's call: cough since November Caller was transferred to no answer at the nurse line. documented in this encounter Plan of Treatment Upcoming Encounters Date Type Department Care Team (Late st Contact Info) Description 09/04/2024 7:20 AM EDT Office Visit Family Medicine [address] [phone] Sandhya Brian MD [address] [place] [address] [place] [phone] Health Maintenance Due Date Last Done Comments DTap/Tdap Vaccines (1 - Tdap) 1964 Zoster Vaccines (1 of 2) 1964 Adult Wellness Visit 04/22/2017 04/22/2016 Depression Screening 07/11/2022 07/11/2021 Albumin/Creatinine Ratio 06/16/2023 023, 10/30/2021, 07/11/2021 COVID-19 Vaccine ( season) 2023 03/10/2023, 12/23/2021, 06/05/2020, Additional history exists Influenza Vaccine (FLU shot) (#1) 2023 12/17/2022, 02/18/2022, 01/03/2021, Additional history exists GFR 07/18/2024 01/18/2024, 12/05, 12/24/2023, Additional history exists CKD HGB USE SMARTSET 45876 01/17/202501/17, 12/31/2023, 12/24/2023, Additional history exists CKD PHOS USE SMARTSET 39782 01/17/202501/03, 12/31/2023, 12/24/2023, Additional history exists Pneumococcal [...] filedocumented as of this encounter Care Teams Load Checker Relationship Specialty Start Date End Date Sandhya Brian MD [address] [place] [address] [place] [phone] PCP - General Family Medicine 10/30/21 documented as of this encounter
--- OUTSIDE RECORDS SUMMARY | 2024-04-23 00:28 | External Medical Summary | Summary of Care ---
Author Name Unknown Organization [facility] Address [address] [facility] [place] [address] Phone [phone] Care Team Providers Care Procurement Engineer Name Role Phone Sandhya Brian MD Primary Care Provide r Encounter Details Date Type Department Care Team (Late st Contact Info) Description 11/16/2023 Orders Only Family Medicine [address] [place] [phone] Sandhya Brian MD [address] [place] [address] [place] [address] Allergies No known active allergiesdocumented as of this encounter (statuses as of 11/16/2023) Medications Medication Sig Dispensed Refills Start Date End Date Status Fluticasone Propionate 50 MCG/ACT Nasal SuspensionIndicatio ns:Non-seasonal allergic rhinitis due to pollen Administer 2 Sprays into each nostril daily. 16 g 5 01/10/2020 Active Acyclovir 400 MG Oral Tablet (Zovirax) Take 1 Tablet by mouth in the morning and 1 Tablet before bedtime. 08/09/2023 Active Allopurinol 100 MG Oral Tablet (Zyloprim) Take 0.5 Tablets by mouth in the morning. 09/06/2023 Active Ondansetron HCl 8 MG Oral Tablet (Zofran) Take 1 Tablet by mouth every 8 hours as needed. 07/16/2023 Active Famotidine 10 MG Oral Tablet (Pepcid) Take 1 Tablet by mouth 2 times a day as needed for Heartburn. Active Phospha 250 Neutral 155-852-130 MG Oral Tablet Take 1 Tablet by mouth in the morning. Active Magnesium 400 MG Oral Tablet Take by mouth daily. Takes at 1100 Active Aspirin 81 MG Oral Tablet Delayed Release (Aspirin 81) Take 1 Tablet by mouth in the morning. Takes A1100. Active Sulfamethoxazole-Tr imethoprim 400-80 MG Oral Tablet (Bactrim) 1 Tablet. Wednesday and Wednesday07/26/2023 Active Prochlorperazine Maleate 5 MG Oral Tablet (Compazine) 1 Tablet every 6 hours as needed. 07/26/2023 Active Loratadine 10 MG Oral Tablet (Claritin) Take 1 Tablet by mouth in the morning. Active Atorvastatin Calcium 10 MG Oral Tablet (Lipitor)Indication s:Cerebrovascular disease, arteriosclerotic, post-stroke Take 1 Tablet by mouth in the morning. 90 Tablet 1 10/22/2023 Active documented as of this encounter (statuses as of 11/16/2023) Active Problems Problem Noted Date Diagnosed Date [...] as of this encounter (statuses as of 11/16/2023) Resolved Problems Problem Noted Date Diagnosed Date Resolved Date Kidney disease, chronic, sta ge III (GFR 30-59 ml/min) 01/16/2019 07/10/2020 Overview: Per CKD protocol documented as of this encounter (statuses as of 11/16/2023) Immunizations Name Administration Dates Next Due COVID-19 mRNA, LNP-s, No Pre serve, 2-Dose Series ([employer]) 06/05/2020,05/15/2020 COVID-19, MRNA-LNP, 23-24, P F, 30 [...] 12/17/2022,02/18/2022,01/03/2021 Seasonal Influenza, Trivalen t, Adjuvanted, 65+ yrs 01/05/2019 documented as of this encounter Social [...] 10:40 AM EDT Office Visit Family Medicine [facility] [place] [phone] Sandhya Brian MD [address] [place] [address] [place] [address] 01/18/2024 1:00 PM EDT Imaging Cardiac Studies, [facility] [address] [place] [address] Pending Results Name Type Priority Associated Diagnoses Date /Time CHEMISTRY-OUTSIDE Lab Routine 024 Health Maintenance Due Date Last Done Comments DTaP,Tdap,and Td Vaccines (1 - Tdap) 1964 Zoster Vaccines (1 of 2) 1964 Adult Wellness Visit 04/22/2017 04/22/2016 Depression Screening 07/11/2022 07/11/2021 Albumin/Creatinine Ratio 06/16/2023 023, 10/30/2021, 07/11/2021 COVID-19 Vaccine ( season) 2023 03/10/2023, 12/23/2021, 06/05/2020, Additional history exists Influenza Vaccine (FLU shot) (#1) 2023 12/17/2022, 02/18/2022, 01/03/2021, Additional history exists GFR 05/07/2024 11/05/2023, 10/04, 10/22/2023, Additional history exists CKD HGB USE SMARTSET 14552 11/04/202411/04, 11/01/2023, 10/22/2023, Additional history exists CKD PHOS USE SMARTSET 58187 11/04/2024 08/0 05/2023, 11/01/2023, 10/22/2023, Additional history exists Pneumococcal Vaccine: 65+ Years [...] filedocumented as of this encounter Care Teams Procurement Engineer Relationship Specialty Start Date End Date Sandhya Brian MD [address] [place] [address] [place] [address] PCP - General Family Medicine 10/30/21 documented as of this encounter
--- OUTSIDE RECORDS SUMMARY | 2024-04-23 00:28 | External Medical Summary | Summary of Care ---
Author Name Unknown Organization [facility] Address [address] [facility] [place] [address] Phone [phone] Care Team Providers Care Data Analytics Analyst Name Role Phone Sandhya Brian MD Primary Care Provide r Encounter Details Date Type Department Care Team (Late st Contact Info) Description 11/23/2023 Orders Only Family Medicine [address] [place] [phone] Sandhya Brian MD [address] [place] [address] [place] [address] Allergies No known active allergiesdocumented as of this encounter (statuses as of 11/23/2023) Medications Medication Sig Dispensed Refills Start Date [...] as of this encounter (statuses as of 11/23/2023) Active Problems Problem Noted Date Diagnosed Date [...] as of this encounter (statuses as of 11/23/2023) Resolved Problems Problem Noted Date Diagnosed Date Resolved Date Kidney disease, chronic, sta ge III (GFR 30-59 ml/min) 01/16/2019 07/10/2020 Overview: Per CKD protocol documented as of this encounter (statuses as of 11/23/2023) Immunizations Name Administration Dates Next Due COVID-19 mRNA, LNP-s, No Pre serve, 2-Dose Series ([employer]) 06/05/2020,05/15/2020 COVID-19, MRNA-LNP, 23-24, P F, 30 [...] 10:40 AM EDT Office Visit Family Medicine [facility] [place] [place] [phone] Sandhya Brian MD [address] [place] [address] [place] [address] 01/18/2024 1:00 PM EDT Imaging Cardiac Studies, [facility] [address] [place] [address] Health Maintenance Due Date Last Done Comments DTaP,Tdap,and Td Vaccines (1 - Tdap) 1964 Zoster Vaccines (1 of 2) 1964 Adult Wellness Visit 04/22/2017 04/22/2016 Depression Screening 07/11/2022 07/11/2021 Albumin/Creatinine Ratio 06/16/2023 023, 10/30/2021, 07/11/2021 COVID-19 Vaccine ( season) 2023 03/10/2023, 12/23/2021, 06/05/2020, Additional history exists Influenza Vaccine (FLU shot) (#1) 2023 12/17/2022, 02/18/2022, 01/03/2021, Additional history exists GFR 05/07/2024 11/19/2023, 08/05/2023, 11/01/2023, Additional history exists CKD PHOS USE SMARTSET 63217 11/04/202411/03, 11/05/2023, 11/01/2023, Additional history exists CKD HGB USE SMARTSET 90783 11/11/202411/18, 11/12/2023, 11/05/2023, Additional history exists Pneumococcal Vaccine: 65+ Years [...] Priority Date/Time Associated Diagnosis Comments CHEMISTRY-OUTSIDE Routine 11/19/2023 documented in this encounter Results * (ABNORMAL) CHEMISTRY-OUTSIDE (11/19/2023) Not all results display below - see scan for full detail OUTSIDE LAB (SEE SCANNED REPORT) Comment:SCAN INCLUDES: CBCD, CMP, LDH, MAGNESIUM, PHOSPHORUS, URIC ACID CREATININE-OUTSID E LAB 1.43(A) 0.70 - 1.30 MG/DL OUTSIDE LAB (SEE SCANNED REPORT) EGFR-OUTSIDE LAB 50(A) >=60 ML/MIN OUTSIDE LAB (SEE SCANNED REPORT) POTASSIUM-OUTSIDE LAB 5.0 3.5 - 5.1 MMOL/L OUTSIDE LAB (SEE SCANNED REPORT) GLUCOSE-OUTSIDE LAB 118(A) 70 - 110 MG/DL OUTSIDE LAB (SEE [...] LAB OUTSIDE LAB (SEE SCANNED REPORT) HEMOGLOBIN, [id number] LAB OUTSIDE LAB (SEE SCANNED REPORT) PHOSPHORUS-OUTSID E LAB 2.8 2.5 - 4.9 MG/DL OUTSIDE LAB (SEE SCANNED REPORT) PTH-OUTSIDE LAB OUTS [place] LAB (SEE SCANNED REPORT) MICROALBUMIN RATIO-OUTSIDE LAB OUTSIDE LA B (SEE SCANNED REPORT) PROTEIN, UA-OUTSIDE LAB OUTSIDE LAB (SEE SCANNED REPORT) HGB 13.3(A) 13.5 - 18.0 GM/DL OUTSIDE LAB (SEE SCANNED REPORT) 11/19/2023 Ludivina Cerrato PA-C LABORATORY OUTSIDE LAB (SEE SCANNED REPORT) documented in this encounter Care Teams Data Analytics Analyst Relationship Specialty Start Date End Date Sandhya Brian MD [address] [place] [address] [place] [phone] PCP - General Family Medicine 10/30/21 documented as of this encounter
--- OUTSIDE RECORDS SUMMARY | 2024-04-23 00:28 | External Medical Summary | Summary of Care ---
Author Name Unknown Organization [facility] Address [address] [facility] [place] [address] Phone [phone] Care Team Providers Care Stock Broker Name Role Phone Sandhya Brian MD Primary Care Provide r Encounter Details Date Type Department Care Team (Late st Contact Info) Description 12/14/2023 Orders Only Family Medicine [address] [place] [phone] Sandhya Brian MD [address] [place] [address] [place] [address] Allergies No known active allergiesdocumented as of this encounter (statuses as of 12/14/2023) Medications Medication Sig Dispensed Refills Start Date [...] as of this encounter (statuses as of 12/14/2023) Active Problems Problem Noted Date Diagnosed Date [...] as of this encounter (statuses as of 12/14/2023) Resolved Problems Problem Noted Date Diagnosed Date Resolved Date Kidney disease, chronic, sta ge III (GFR 30-59 ml/min) 01/16/2019 07/10/2020 Overview: Per CKD protocol documented as of this encounter (statuses as of 12/14/2023) Immunizations Name Administration Dates Next Due COVID-19 mRNA, LNP-s, No Pre serve, 2-Dose Series ([employer]) 06/05/2020,05/15/2020 COVID-19, MRNA-LNP, 23-24, P F, 30 [...] 10:40 AM EDT Office Visit Family Medicine [facility] [place] [place] [phone] Sandhya Brian MD [address] [place] [address] [place] [address] 01/18/2024 1:00 PM EDT Imaging Cardiac Studies, [facility] [address] [place] [address] Health Maintenance Due Date Last Done Comments DTap/Tdap Vaccines (1 - Tdap) 1964 Zoster Vaccines (1 of 2) 1964 Adult Wellness Visit 04/22/2017 04/22/2016 Depression Screening 07/11/2022 07/11/2021 Albumin/Creatinine Ratio 06/16/2023 023, 10/30/2021, 07/11/2021 COVID-19 Vaccine ( season) 2023 03/10/2023, 12/23/2021, 06/05/2020, Additional history exists Influenza Vaccine (FLU shot) (#1) 2023 12/17/2022, 02/18/2022, 01/03/2021, Additional history exists GFR 06/08/2024 12/10/2023, 11/05, 11/26/2023, Additional history exists CKD HGB USE SMARTSET 00014 12/09/202412/09, 12/03/2023, 11/26/2023, Additional history exists CKD PHOS USE SMARTSET 76202 12/09/2024 09/0 09/2023, 12/03/2023, 11/26/2023, Additional history exists Pneumococcal Vaccine: 65+ Years [...] Priority Date/Time Associated Diagnosis Comments CHEMISTRY-OUTSIDE Routine 12/10/2023 documented in this encounter Results * (ABNORMAL) CHEMISTRY-OUTSIDE (12/10/2023) Not all results display below - see scan for full detail OUTSIDE LAB (SEE SCANNED REPORT) Comment:SCAN INCL: CMP,CBCD, LDH, MAG, PHOS, URIC ACID CREATININE-OUTSID E LAB 1.35(A) 0.70 - 1.30 MG/DL OUTSIDE LAB (SEE SCANNED REPORT) EGFR-OUTSIDE LAB 54(A) >=60 ML/MIN OUTSIDE LAB (SEE SCANNED REPORT) POTASSIUM-OUTSIDE LAB 4.4 3.5 - 5.1 MMOL/L OUTSIDE LAB (SEE SCANNED REPORT) GLUCOSE-OUTSIDE LAB 147(A) 70 - 110 MG/DL OUTSIDE LAB (SEE [...] LAB OUTSIDE LAB (SEE SCANNED REPORT) HEMOGLOBIN, [id number] LAB OUTSIDE LAB (SEE SCANNED REPORT) PHOSPHORUS-OUTSID E LAB 2.7 2.5 - 4.9 MG/DL OUTSIDE LAB (SEE SCANNED REPORT) PTH-OUTSIDE LAB OUTS [facility] LAB (SEE SCANNED REPORT) MICROALBUMIN RATIO-OUTSIDE LAB OUTSIDE LA B (SEE SCANNED REPORT) PROTEIN, UA-OUTSIDE LAB OUTSIDE LAB (SEE SCANNED REPORT) HGB 11.0(A) 13.5 - 18.0 GM/DL OUTSIDE LAB (SEE SCANNED REPORT) 12/10/2023 History Per Patient LABORATORY OUTSIDE LAB (SEE SCANNED REPORT) documented in this encounter Care Teams Stock Broker Relationship Specialty Start Date End Date Sandhya Brian MD [address] [place] [address] [place] [phone] PCP - General Family Medicine 10/30/21 documented as of this encounter
--- OUTSIDE RECORDS SUMMARY | 2024-04-23 00:28 | External Medical Summary | Summary of Care ---
Author Name Unknown Organization [facility] Address [address] [facility] [place] [address] Phone [phone] Care Team Providers Care Workforce Management Consultant Name Role Phone Sandhya Brian MD Primary Care Provide r Encounter Details Date Type Department Care Team (Late st Contact Info) Description 12/07/2023 Orders Only Family Medicine [address] [place] [phone] Sandhya Brian MD [address] [place] [address] [place] [address] Allergies No known active allergiesdocumented as of this encounter (statuses as of 12/07/2023) Medications Medication Sig Dispensed Refills Start Date [...] as of this encounter (statuses as of 12/07/2023) Active Problems Problem Noted Date Diagnosed Date [...] as of this encounter (statuses as of 12/07/2023) Resolved Problems Problem Noted Date Diagnosed Date Resolved Date Kidney disease, chronic, sta ge III (GFR 30-59 ml/min) 01/16/2019 07/10/2020 Overview: Per CKD protocol documented as of this encounter (statuses as of 12/07/2023) Immunizations Name Administration Dates Next Due COVID-19 mRNA, LNP-s, No Pre serve, 2-Dose Series ([email or web address]) 06/05/2020,05/15/2020 COVID-19, MRNA-LNP, 23-24, P F, 30 [...] 10:40 AM EDT Office Visit Family Medicine [facility] [place] [place] [phone] Sandhya Brian MD [address] [place] [address] [place] [address] 01/18/2024 1:00 PM EDT Imaging Cardiac Studies, [facility] [address] [place] [address] Health Maintenance Due Date Last Done Comments DTap/Tdap Vaccines (1 - Tdap) 1964 Zoster Vaccines (1 of 2) 1964 Adult Wellness Visit 04/22/2017 04/22/2016 Depression Screening 07/11/2022 07/11/2021 Albumin/Creatinine Ratio 06/16/2023 023, 10/30/2021, 07/11/2021 COVID-19 Vaccine ( season) 2023 03/10/2023, 12/23/2021, 06/05/2020, Additional history exists Influenza Vaccine (FLU shot) (#1) 2023 12/17/2022, 02/18/2022, 01/03/2021, Additional history exists GFR 05/28/2024 12/03/2023, 11/04, 11/19/2023, Additional history exists CKD HGB USE SMARTSET 65154 11/25/202412/02, 11/26/2023, 11/19/2023, Additional history exists CKD PHOS USE SMARTSET 98006 11/25/202411/05, 11/26/2023, 11/19/2023, Additional history exists Pneumococcal Vaccine: 65+ Years [...] Priority Date/Time Associated Diagnosis Comments CHEMISTRY-OUTSIDE Routine 12/03/2023 documented in this encounter Results * (ABNORMAL) CHEMISTRY-OUTSIDE (12/03/2023) Not all results display below - see scan for full detail SCAN ICLUDES: CBCD, CMP, LDH, MG, PHOS, URIC ACID OUTSIDE LAB (SEE SCANNED REPORT) CREATININE-OUTSID E LAB 1.45(A) 0.70 - 1.30 MG/DL OUTSIDE LAB (SEE SCANNED REPORT) EGFR-OUTSIDE LAB 49(A) >60 ML/MIN OUTSIDE LAB (SEE SCANNED REPORT) POTASSIUM-OUTSIDE LAB 4.2 3.5 - 5.1 MMOL/L OUTSIDE LAB (SEE SCANNED REPORT) GLUCOSE-OUTSIDE LAB 112(A) 70 - 110 MG/DL OUTSIDE LAB (SEE [...] LAB OUTSIDE LAB (SEE SCANNED REPORT) HEMOGLOBIN, [id number] LAB OUTSIDE LAB (SEE SCANNED REPORT) PHOSPHORUS-OUTSID E LAB 3.7 2.5 - 4.9 MG/DL OUTSIDE LAB (SEE SCANNED REPORT) PTH-OUTSIDE LAB OUTS [facility] LAB (SEE SCANNED REPORT) MICROALBUMIN RATIO-OUTSIDE LAB OUTSIDE LA B (SEE SCANNED REPORT) PROTEIN, UA-OUTSIDE LAB OUTSIDE LAB (SEE SCANNED REPORT) HGB 10.9(A) 13.5 - 18.0 G/DL OUTSIDE LAB (SEE SCANNED REPORT) 12/03/2023 Ludivina Cerrato PA-C LABORATORY OUTSIDE LAB (SEE SCANNED REPORT) documented in this encounter Care Teams Workforce Management Consultant Relationship Specialty Start Date End Date Sandhya Brian MD [address] [place] [address] [place] [phone] PCP - General Family Medicine 10/30/21 documented as of this encounter
--- OUTSIDE RECORDS SUMMARY | 2024-04-23 00:28 | External Medical Summary | Summary of Care ---
Author Name Unknown Organization [facility] Address [address] [facility] [address] Phone [phone] Care Team Providers Care Rip Saw Operator Name Role Phone Sandhya Brian MD Primary Care Provide r Reason for Visit * Reason Onset Date Comments Med Request 12/10/2023 Status Check 12/10/2023 Encounter Details Date Type Department Care Team (Late st Contact Info) Description 12/10/2023 Telephone Family Medicine [address] [phone] Sandhya Brian MD [address] [place] [address] [place] [address] Med Request; Status Check Allergies No known active allergiesdocumented as of this encounter (statuses as of 12/20/2023) Medications Medication Sig Dispensed Refills Start Date [...] Active Amoxicillin-Pot Clavulanate 875-125 MG Oral Tablet (Augmentin)Indicati ons:Acute non-recurrent frontal sinusitis Take 1 Tablet by mouth in the morning and 1 Tablet before bedtime. Do all this for 7 days. 14 Tablet 12/20/2023 12/27/2023 Active documented as of this encounter (statuses as of 12/20/2023) Active Problems Problem Noted Date Diagnosed Date [...] as of this encounter (statuses as of 12/20/2023) Resolved Problems Problem Noted Date Diagnosed Date Resolved Date Kidney disease, chronic, sta ge III (GFR 30-59 ml/min) 01/16/2019 07/10/2020 Overview: Per CKD protocol documented as of this encounter (statuses as of 12/20/2023) Immunizations Name Administration Dates Next Due COVID-19 mRNA, LNP-s, No Pre serve, 2-Dose Series ([employer]) 06/05/2020,05/15/2020 COVID-19, MRNA-LNP, 23-24, P F, 30 MCG/0.3 mL, 12 YRS AND ABOVE, IM ([email or web address]) 03/10/2023 Covid-19, Mrna, Lnp-s, Pf, B ivalent, [...] Telephone Encounter - Sandhya Brian MD - 12/20/2023 8:47 PM EDT Augmentin sent * Telephone Encounter - Kalyn Leiva LPN - 12/20/2023 8:19 AM EDT Patient's is calling. She saw Dr. Brian on November 24. Her was with her. Dr. Lombardi said if he didn't get any better, since he is a cancer patient, he would call medicine in for him. They have waited and have not heard anything back. They now have an appt. On , but she feels he can't wait that long for medicine. Ever since his stroke he gets winded easily. Dr. Lombardi isaware. Pharmacy pended. Please advise. reports that he is now done with his chemo as of last Wednesday. Scheduled for a PET scan on * Telephone Encounter - Mery Marie CPhT - 12/20/2023 8:15 AM EDT Pt's is calling back very upset stating she called days ago to request a medication for sinus and chest congestion. I advised caller of the message from another note regarding an appt. Caller states the pt has an upcoming appt on 12/23/23 but he cannot breathe and needs something sent in until then. Pt's EC would like to be contacted if there is going to be an issue getting something call in until his appt. Pt's EC can be contacted at [phone]. Thank you, Becca Marie CPhT Newspaper Inserter III [facility] [address] [place] [address], [address] [place] [address] [phone] * Telephone Encounter - Ludivina Weaver LPN - 12/13/2023 12:08 PM EDT I don't see where pt was seen for this recently. Pt needs appt. * Telephone Encounter - Edith Nair CPhT - 12/10/2023 11:37 AM EDT Patients calling to request medication for sinus and chest congestion patient is not getting any better he was advised to call if no better Thank you, Edith Nair Biopharmaceutical Rep II [facility] (formerly [facility]) 12/10/2023 11:38 AM documented in this encounter Plan of Treatment Upcoming Encounters Date Type Department Care Team (Late st Contact Info) Description 12/23/2023 10:40 AM EDT Office Visit Family Medicine [address] [place] [phone] Sandhya Brian MD [address] [place] [address] [place] [address] 01/18/2024 1:00 PM EDT Imaging Cardiac Studies, [facility] [address] [facility] [place] [address] Health Maintenance Due Date Last Done Comments [...] Additional history exists CKD HGB USE SMARTSET 02785 12/09/202412/09, 12/03/2023, 11/26/2023, Additional history exists CKD PHOS USE SMARTSET 87174 12/09/2024 09/0 09/2023, 12/03/2023, 11/26/2023, Additional history [...] of this encounter Visit Diagnoses Diagnosis Acute non-recurrent frontal sinusitis- Primary documented in this encounter Care Teams Rip Saw Operator Relationship Specialty Start Date End Date Sandhya Brian MD [address] [place] [address] [place] [phone] PCP - General Family Medicine 10/30/21 documented as of this encounter
--- OUTSIDE RECORDS SUMMARY | 2024-04-23 00:28 | External Medical Summary | Summary of Care ---
Author Name Unknown Organization [facility] Address [address] [facility] [place] [address] Phone [phone] Care Team Providers Care Adding Machine Mechanic Name Role Phone Sandhya Brian MD Primary Care Provide r Encounter Details Date Type Department Care Team (Late st Contact Info) Description 12/22/2023 Orders Only Family Medicine [address] [place] [phone] Sandhya Brian MD [address] [place] [address] [place] [address] Allergies No known active allergiesdocumented as of this encounter (statuses as of 12/22/2023) Medications Medication Sig Dispensed Refills Start Date [...] as of this encounter (statuses as of 12/22/2023) Active Problems Problem Noted Date Diagnosed Date [...] as of this encounter (statuses as of 12/22/2023) Resolved Problems Problem Noted Date Diagnosed Date Resolved Date Kidney disease, chronic, sta ge III (GFR 30-59 ml/min) 01/16/2019 07/10/2020 Overview: Per CKD protocol documented as of this encounter (statuses as of 12/22/2023) Immunizations Name Administration Dates Next Due COVID-19 mRNA, LNP-s, No Pre serve, 2-Dose Series ([employer]) 06/05/2020,05/15/2020 COVID-19, MRNA-LNP, 23-24, P F, 30 MCG/0.3 mL, 12 YRS AND ABOVE, IM ([employer]-Comirnat) 03/10/2023 Covid-19, Mrna, Lnp-s, Pf, B ivalent, [...] 10:40 AM EDT Office Visit Family Medicine [address] [place] [phone] Sandhya Brian MD [address] [place] [address] [place] [address] 01/18/2024 1:00 PM EDT Imaging Cardiac Studies, [facility] [address] [facility] [place] [address] Health Maintenance Due Date Last Done Comments DTap/Tdap Vaccines (1 - Tdap) 1964 Zoster Vaccines (1 of 2) 1964 Adult Wellness Visit 04/22/2017 04/22/2016 Depression Screening 07/11/2022 07/11/2021 Albumin/Creatinine Ratio 06/16/20232 023, 10/30/2021, 07/11/2021 COVID-19 Vaccine ( season) 2023 03/10/2023, 12/23/2021, 06/05/2020, Additional history exists Influenza Vaccine (FLU shot) (#1) 2023 12/17/2022, 02/18/2022, 01/03/2021, Additional history exists GFR 06/08/2024 12/20/2023, 09/2023, 12/03/2023, Additional history exists CKD HGB USE SMARTSET 02941 12/09/202412/19, 12/10/2023, 12/03/2023, Additional history exists CKD PHOS USE SMARTSET 38327 12/09/202412/04, 12/10/2023, 12/03/2023, Additional history exists Pneumococcal Vaccine: [...] Priority Date/Time Associated Diagnosis Comments CHEMISTRY-OUTSIDE Routine 12/20/2023 documented in this encounter Results * (ABNORMAL) CHEMISTRY-OUTSIDE (12/20/2023) Not all results display below - see scan for full detail OUTSIDE LAB (SEE SCANNED REPORT) Comment:SCAN INCLUDES - CMP, LACTATE DEHYDEOGENASE, MAGNESIUM, PHOSPHORUS, URIC ACID, CBCD CREATININE 1.49(A) 0.70 - 1.30 MG/DL OUTSIDE LAB (SEE SCANNED REPORT) EGFR 48(L) >=60 ML/MIN OUTSIDE LAB (SEE SCANNED REPORT) POTASSIUM 4.3 3.5 - 5.1 MMOL/L OUTSIDE LAB (SEE SCANNED REPORT) GLUCOSE 119(A) 70 - 110 MG/DL OUTSIDE LAB (SEE [...] LAB OUTSIDE LAB (SEE SCANNED REPORT) HEMOGLOBIN, [id number] LAB OUTSIDE LAB (SEE SCANNED REPORT) PHOSPHORUS-OUTSID E LAB 2.7 2.5 - 4.9 MG/DL OUTSIDE LAB (SEE SCANNED REPORT) PTH-OUTSIDE LAB OUTS [facility] LAB (SEE SCANNED REPORT) MICROALBUMIN RATIO-OUTSIDE LAB OUTSIDE LA B (SEE SCANNED REPORT) PROTEIN, UA-OUTSIDE LAB OUTSIDE LAB (SEE SCANNED REPORT) HGB 11.6(A) 13.5 - 18.0 GM/DL OUTSIDE LAB (SEE SCANNED REPORT) 12/20/2023 Ludivina Cerrato PA-C LABORATORY OUTSIDE LAB (SEE SCANNED REPORT) documented in this encounter Care Teams Adding Machine Mechanic Relationship Specialty Start Date End Date Sandhya Brian MD [address] [place] [address] [place] [address] PCP - General Family Medicine 10/30/21 documented as of this encounter
--- OUTSIDE RECORDS SUMMARY | 2024-04-23 00:29 | External Medical Summary | Summary of Care ---
Author Name Unknown Organization [facility] Address [address] [facility] [place] [address] Phone [phone] Care Team Providers Care Surface Supply Breathing Apparatus Name Role Phone Sandhya Brian MD Primary Care Provide r Encounter Details Date Type Department Care Team (Late st Contact Info) Description 11/02/2023 Orders Only Family Medicine [address] [place] [phone] Sandhya Brian MD [address] [place] [address] [place] [address] Allergies No known active allergiesdocumented as of this encounter (statuses as of 11/02/2023) Medications Medication Sig Dispensed Refills Start Date [...] as of this encounter (statuses as of 11/02/2023) Active Problems Problem Noted Date Diagnosed Date [...] as of this encounter (statuses as of 11/02/2023) Resolved Problems Problem Noted Date Diagnosed Date Resolved Date Kidney disease, chronic, sta ge III (GFR 30-59 ml/min) 01/16/2019 07/10/2020 Overview: Per CKD protocol documented as of this encounter (statuses as of 11/02/2023) Immunizations Name Administration Dates Next Due COVID-19 mRNA, LNP-s, No Pre serve, 2-Dose Series ([employer]) 06/05/2020,05/15/2020 COVID-19, MRNA-LNP, 23-24, P F, 30 [...] 10:40 AM EDT Office Visit Family Medicine [facility] [place] [place] [phone] Sandhya Brian MD [address] [place] [address] [place] [address] 01/18/2024 1:00 PM EDT Imaging Cardiac Studies, [facility] [address] [place] [address] Health Maintenance Due Date Last Done Comments DTaP,Tdap,and Td Vaccines (1 - Tdap) 1964 Zoster Vaccines (1 of 2) 1964 Depression Screening 07/11/2022 07/11/2021 Albumin/Creatinine Ratio 06/16/2023 023, 10/30/2021, 07/11/2021 COVID-19 Vaccine ( season) 2023 03/10/2023, 12/23/2021, 06/05/2020, Additional history exists Influenza Vaccine (FLU shot) (#1) 2023 12/17/2022, 02/18/2022, 01/03/2021, Additional history exists GFR 04/23/2024 11/01/2023, 10/03, 10/18/2023, Additional history exists CKD HGB USE SMARTSET 69741 10/21/202410/31, 10/22/2023, 10/18/2023, Additional history exists CKD PHOS USE SMARTSET 31710 10/21/202410/04, 10/22/2023, 10/18/2023, Additional history exists Pneumococcal Vaccine: 65+ Years Completed 01/10/2020, 01/05/2019 Hepatitis C Screening Completed 06/03/2023 HPV (Gardasil) Vaccine Aged Out No lo [...] Priority Date/Time Associated Diagnosis Comments CHEMISTRY-OUTSIDE Routine 11/01/2023 documented in this encounter Results * (ABNORMAL) CHEMISTRY-OUTSIDE (11/01/2023) Not all results display below - see scan for full detail OUTSIDE LAB (SEE SCANNED REPORT) Comment:SCAN INCLUDES: CBCD, CMP, LDH, MG, PHOS, URIC ACID CREATININE-OUTSID E LAB 1.29 0.70 - 1.30 MG/DL OUTSIDE LAB (SEE SCANNED REPORT) EGFR-OUTSIDE LAB 57(A) >=60 ML/MIN/1.7 3M2 OUTSIDE LAB (SEE SCANNED REPORT) POTASSIUM-OUTSIDE LAB 4.0 3.5 - 5.1 MMOL/L OUTSIDE LAB (SEE SCANNED REPORT) GLUCOSE-OUTSIDE LAB 117(A) 70 - 110 MG/DL OUTSIDE LAB (SEE [...] LAB OUTSIDE LAB (SEE SCANNED REPORT) HEMOGLOBIN, [id number] LAB OUTSIDE LAB (SEE SCANNED REPORT) PHOSPHORUS-OUTSID E LAB 2.4(A) 2.5 - 4.9 MG/DL OUTSIDE LAB (SEE SCANNED REPORT) PTH-OUTSIDE LAB OUTS [facility] LAB (SEE SCANNED REPORT) MICROALBUMIN RATIO-OUTSIDE LAB OUTSIDE LA B (SEE SCANNED REPORT) PROTEIN, UA-OUTSIDE LAB OUTSIDE LAB (SEE SCANNED REPORT) HGB 10.7(A) 13.5 - 18.0 GM/DL OUTSIDE LAB (SEE SCANNED REPORT) 11/01/2023 Ludivina Cerrato PA-C LABORATORY OUTSIDE LAB (SEE SCANNED REPORT) documented in this encounter Care Teams Surface Supply Breathing Apparatus Relationship Specialty Start Date End Date Sandhya Brian MD [address] [place] [address] [place] [address] PCP - General Family Medicine 10/30/21 documented as of this encounter
--- OUTSIDE RECORDS SUMMARY | 2024-04-23 00:29 | External Medical Summary | Summary of Care ---
Author Name Unknown Organization [facility] Address [address] [facility] [place] [address] Phone [phone] Care Team Providers Care Touch Up Painter Hand Name Role Phone Sandhya Brian MD Primary Care Provide r Encounter Details Date Type Department Care Team (Late st Contact Info) Description 11/08/2023 Orders Only Family Medicine [address] [place] [phone] Sandhya Brian MD [address] [place] [address] [place] [phone] Allergies No known active allergiesdocumented as of this encounter (statuses as of 11/08/2023) Medications Medication Sig Dispensed Refills Start Date [...] as of this encounter (statuses as of 11/08/2023) Active Problems Problem Noted Date Diagnosed Date [...] as of this encounter (statuses as of 11/08/2023) Resolved Problems Problem Noted Date Diagnosed Date Resolved Date Kidney disease, chronic, sta ge III (GFR 30-59 ml/min) 01/16/2019 07/10/2020 Overview: Per CKD protocol documented as of this encounter (statuses as of 11/08/2023) Immunizations Name Administration Dates Next Due COVID-19 mRNA, LNP-s, No Pre serve, 2-Dose Series ([employer]) 06/05/2020,05/15/2020 COVID-19, MRNA-LNP, 23-24, P F, 30 [...] 10:40 AM EDT Office Visit Family Medicine [facility] [place] [address] [place] [address] [place] [phone] Sandhya Brian MD [address] [place] [address] [place] [phone] 01/18/2024 1:00 PM EDT Imaging Cardiac Studies, [facility] [address] [place] [address] Health Maintenance Due Date Last Done Comments DTaP,Tdap,and Td Vaccines (1 - Tdap) 1964 Zoster Vaccines (1 of 2) 1964 Depression Screening 07/11/2022 07/11/2021 Albumin/Creatinine Ratio 06/16/2023 023, 10/30/2021, 07/11/2021 COVID-19 Vaccine ( season) 2023 03/10/2023, 12/23/2021, 06/05/2020, Additional history exists Influenza Vaccine (FLU shot) (#1) 2023 12/17/2022, 02/18/2022, 01/03/2021, Additional history exists GFR 05/03/2024 11/05/2023, 10/04, 10/22/2023, Additional history exists CKD PHOS USE SMARTSET 65040 10/31/2024 08/0 05/2023, 11/01/2023, 10/22/2023, Additional history exists CKD HGB USE SMARTSET 80227 11/04/202411/04, 11/01/2023, 10/22/2023, Additional history exists Pneumococcal Vaccine: [...] Priority Date/Time Associated Diagnosis Comments CHEMISTRY-OUTSIDE Routine 11/05/2023 documented in this encounter Results * (ABNORMAL) CHEMISTRY-OUTSIDE (11/05/2023) Not all results display below - see scan for full detail OUTSIDE LAB (SEE SCANNED REPORT) Comment:SCAN INCLUDES - CMP, LDH, MAGNESIUM, PHOSPORUS, URIC ACID CREATININE-OUTSID E LAB 1.12 0.70 - 1.30 MG/DL OUTSIDE LAB (SEE SCANNED REPORT) EGFR-OUTSIDE LAB 67 >=60 ML/MIN/1.7 3M2 OUTSIDE LAB (SEE SCANNED REPORT) POTASSIUM-OUTSIDE LAB 4.2 3.5 - 5.1 MMOL/L OUTSIDE LAB (SEE SCANNED REPORT) GLUCOSE-OUTSIDE LAB 114(A) 70 - 110 MG/DL OUTSIDE LAB (SEE [...] LAB OUTSIDE LAB (SEE SCANNED REPORT) HEMOGLOBIN, [id number] LAB OUTSIDE LAB (SEE SCANNED REPORT) PHOSPHORUS-OUTSID E LAB 3.0 2.5 - 4.9 MG/DL OUTSIDE LAB (SEE SCANNED REPORT) PTH-OUTSIDE LAB OUTS [facility] (SEE SCANNED REPORT) MICROALBUMIN RATIO-OUTSIDE LAB OUTSIDE LA B (SEE SCANNED REPORT) PROTEIN, UA-OUTSIDE LAB OUTSIDE LAB (SEE SCANNED REPORT) HGB OUTSIDE LA B (SEE SCANNED REPORT) 11/05/2023 Ludivina Cerrato PA-C LABORATORY OUTSIDE LAB (SEE SCANNED REPORT) documented in this encounter Care Teams Touch Up Painter Hand Relationship Specialty Start Date End Date Sandhya Brian MD [address] [place] [address] [place] [phone] PCP - General Family Medicine 10/30/21 documented as of this encounter
--- OUTSIDE RECORDS SUMMARY | 2024-04-23 00:29 | External Medical Summary | Summary of Care ---
Author Name Unknown Organization [facility] Address [address] [facility] [place] [address] Phone [phone] Care Team Providers Care Experimental Aircraft Mechanic Name Role Phone Sandhya Brian MD Primary Care Provide r Encounter Details Date Type Department Care Team (Late st Contact Info) Description 10/26/2023 Orders Only Family Medicine [address] [place] [phone] Sandhya Brian MD [address] [place] [address] [place] [phone] Allergies No known active allergiesdocumented as of this encounter (statuses as of 10/26/2023) Medications Medication Sig Dispensed Refills Start Date [...] as of this encounter (statuses as of 10/26/2023) Active Problems Problem Noted Date Diagnosed Date [...] as of this encounter (statuses as of 10/26/2023) Resolved Problems Problem Noted Date Diagnosed Date Resolved Date Kidney disease, chronic, sta ge III (GFR 30-59 ml/min) 01/16/2019 07/10/2020 Overview: Per CKD protocol documented as of this encounter (statuses as of 10/26/2023) Immunizations Name Administration Dates Next Due COVID-19 mRNA, LNP-s, No Pre serve, 2-Dose Series ([employer]) 06/05/2020,05/15/2020 COVID-19, MRNA-LNP, 23-24, P F, 30 [...] 10:40 AM EDT Office Visit Family Medicine [facility] [place] [place] [phone] Sandhya Brian MD [address] [place] [address] [place] [address] 01/18/2024 1:00 PM EDT Imaging Cardiac Studies, [facility] [address] [place] [address] Health Maintenance Due Date Last Done Comments DTaP,Tdap,and Td Vaccines (1 - Tdap) 1964 Zoster Vaccines (1 of 2) 1964 Depression Screening 07/11/2022 07/11/2021 Albumin/Creatinine Ratio 06/16/2023 023, 10/30/2021, 07/11/2021 COVID-19 Vaccine (2022- season) 2023 03/10/2023, 12/23/2021, 06/05/2020, Additional history exists Influenza Vaccine (FLU shot) (#1) 2023 12/17/2022, 02/18/2022, 01/03/2021, Additional history exists GFR 04/23/2024 10/22/2023, 10/03, 10/08/2023, Additional history exists CKD HGB USE SMARTSET 51936 10/21/202410/21, 10/18/2023, 10/08/2023, Additional history exists CKD PHOS USE SMARTSET 72309 10/21/202410/03, 10/18/2023, 10/08/2023, Additional history exists Pneumococcal Vaccine: 65+ Years [...] Priority Date/Time Associated Diagnosis Comments CHEMISTRY-OUTSIDE Routine 10/22/2023 documented in this encounter Results * (ABNORMAL) CHEMISTRY-OUTSIDE (10/22/2023) Not all results display below - see scan for full detail OUTSIDE LAB (SEE SCANNED REPORT) Comment:SCAN INCLUDES - CBCD , CMP, LACTATE DEHYDROGENASE, MAGNESIUM, PHOSPHORUS, URIC ACID CREATININE-OUTSID E LAB 1.38(A) 0.70 - 1.30 MG/DL OUTSIDE LAB (SEE SCANNED REPORT) EGFR-OUTSIDE LAB 52(L) >=60 ML/MIN OUTSIDE LAB (SEE SCANNED REPORT) [...] LAB OUTSIDE LAB (SEE SCANNED REPORT) HEMOGLOBIN, [id number] LAB OUTSIDE LAB (SEE SCANNED REPORT) PHOSPHORUS-OUTSID E LAB 2.9 2.5 - 4.9 MG/DL OUTSIDE LAB (SEE SCANNED REPORT) PTH-OUTSIDE LAB OUTS [facility] (SEE SCANNED REPORT) MICROALBUMIN RATIO-OUTSIDE LAB OUTSIDE LA B (SEE SCANNED REPORT) PROTEIN, UA-OUTSIDE LAB OUTSIDE LAB (SEE SCANNED REPORT) HGB 12.5(A) 13.5 - 18.0 GM/DL OUTSIDE LAB (SEE SCANNED REPORT) 10/22/2023 Ludivina Cerrato PA-C LABORATORY OUTSIDE LAB (SEE SCANNED REPORT) documented in this encounter Care Teams Experimental Aircraft Mechanic Relationship Specialty Start Date End Date Sandhya Brian MD [address] [place] [address] [place] [phone] PCP - General Family Medicine 10/30/21 documented as of this encounter
--- OUTSIDE RECORDS SUMMARY | 2024-04-23 00:29 | External Medical Summary | Summary of Care ---
Author Name Unknown Organization [facility] Address [address] [facility] [place] [address] Phone [phone] Care Team Providers Care Crime Scene Analyst Name Role Phone Sandhya Brian MD Primary Care Provide r Encounter Details Date Type Department Care Team (Late st Contact Info) Description 11/05/2023 Orders Only Family Medicine [address] [place] [phone] Sandhya Brian MD [address] [place] [address] [place] [phone] Allergies No known active allergiesdocumented as of this encounter (statuses as of 11/05/2023) Medications Medication Sig Dispensed Refills Start Date [...] as of this encounter (statuses as of 11/05/2023) Active Problems Problem Noted Date Diagnosed Date [...] as of this encounter (statuses as of 11/05/2023) Resolved Problems Problem Noted Date Diagnosed Date Resolved Date Kidney disease, chronic, sta ge III (GFR 30-59 ml/min) 01/16/2019 07/10/2020 Overview: Per CKD protocol documented as of this encounter (statuses as of 11/05/2023) Immunizations Name Administration Dates Next Due COVID-19 mRNA, LNP-s, No Pre serve, 2-Dose Series ([employer]) 06/05/2020,05/15/2020 COVID-19, MRNA-LNP, 23-24, P F, 30 [...] 10:40 AM EDT Office Visit Family Medicine [facility] [place] [address] [place] [address] [place] [phone] Sandhya Brian MD [address] [place] [address] [place] [address] 01/18/2024 1:00 PM EDT Imaging Cardiac Studies, [facility] [address] [place] [address] Health Maintenance Due Date Last Done Comments DTaP,Tdap,and Td Vaccines (1 - Tdap) 1964 Zoster Vaccines (1 of 2) 1964 Depression Screening 07/11/2022 07/11/2021 Albumin/Creatinine Ratio 06/16/2023 023, 10/30/2021, 07/11/2021 COVID-19 Vaccine ( season) 2023 03/10/2023, 12/23/2021, 06/05/2020, Additional history exists Influenza Vaccine (FLU shot) (#1) 2023 12/17/2022, 02/18/2022, 01/03/2021, Additional history exists GFR 05/03/2024 11/01/2023, 10/03, 10/18/2023, Additional history exists CKD HGB USE SMARTSET 63706 10/31/202411/04, 11/01/2023, 10/22/2023, Additional history exists CKD PHOS USE SMARTSET 40896 10/31/202410/04, 10/22/2023, 10/18/2023, Additional history exists Pneumococcal Vaccine: [...] LAB (SEE SCANNED REPORT) Comment:SCAN INCLUDES: CBCD CREATININE-OUTSID E LAB OUTSIDE LAB (SEE SCANNED REPORT) EGFR-OUTSIDE LAB OUT SIDE LAB (SEE SCANNED REPORT) POTASSIUM-OUTSIDE LAB OUTSIDE LAB (SEE SCANNED REPORT) GLUCOSE-OUTSIDE LAB OUTSIDE LAB (SEE SCANNED REPORT) HOURS FASTING [...] LAB OUTSIDE LAB (SEE SCANNED REPORT) HEMOGLOBIN, [id number] LAB OUTSIDE LAB (SEE SCANNED REPORT) PHOSPHORUS-OUTSID E LAB OUTSIDE LAB (SEE SCANNED REPORT) PTH-OUTSIDE LAB OUTS [facility] (SEE SCANNED REPORT) MICROALBUMIN RATIO-OUTSIDE LAB OUTSIDE LA B (SEE SCANNED REPORT) PROTEIN, UA-OUTSIDE LAB OUTSIDE LAB (SEE SCANNED REPORT) HGB 11.4(A) 13.5 - 18.0 GM/DL OUTSIDE LAB (SEE SCANNED REPORT) 11/05/2023 Ludivina Cerrato PA-C LABORATORY OUTSIDE LAB (SEE SCANNED REPORT) documented in this encounter Care Teams Crime Scene Analyst Relationship Specialty Start Date End Date Sandhya Brian MD [address] [place] [address] [place] [phone] PCP - General Family Medicine 10/30/21 documented as of this encounter
[2024-04-23 01:18] LABS: Albumin Level 3.4 gm/dl (3.4-5.0); BUN Creatinine Ratio 11.6 (10-20); Bilirubin Direct 0.1 mg/dl (0-0.2); Bilirubin,Total 0.4 mg/dl (0.2-1.0); Calcium 8.5 mg/dl (8.6-10.3); Creatinine Clr Calc Pharmacy 56.5 ml/min; Magnesium 1.5 mg/dl (1.7-2.4); Total Protein 6.2 gm/dl (6.0-8.3)
[2024-04-23 01:24] LABS: Troponin I High Sensitivity 11.9 pg/ml (0-20)
[2024-04-23 01:45] LABS: Adenovirus PCR Not Detected (NotDetected); Bordetella parapertussis PCR Not Detected (NotDetected); Bordetella pertussis PCR Not Detected (NotDetected); Chlamydia pneumoniae PCR Not Detected (NotDetected); Coronavirus 229E PCR Not Detected (NotDetected); Coronavirus CoV-2 (COVID19)PCR Not Detected (NotDetected); Coronavirus HKU1 PCR Not Detected (NotDetected); Coronavirus NL63 PCR Not Detected (NotDetected); Coronavirus OC43PCR Not Detected (NotDetected); Human Metapneumovirus PCR Not Detected (NotDetected); Influenza A PCR Not Detected (NotDetected); Influenza B PCR Not Detected (NotDetected); Mycoplasma pneumoniae PCR Not Detected (NotDetected); Parainfluenza Virus 1 PCR Not Detected (NotDetected); Parainfluenza Virus 2 PCR Not Detected (NotDetected); Parainfluenza Virus 3 PCR Not Detected (NotDetected); Parainfluenza Virus 4 PCR Not Detected (NotDetected); Respiratory Syncytial VirusPCR Not Detected (NotDetected); Rhinovirus/Enterovirus PCR DETECTED (NotDetected)
[2024-04-23 01:46] LABS: Hematocrit (blood only) 33.4 % (42.0-52.0); Hemoglobin 11.6 g/dl (14.0-18.0); Mean Corpuscular Hemoglobin 34.2 pg (25.0-34.0); Mean Corpuscular Hgb Conc 34.7 g/dL (32.0-36.0); Mean Corpuscular Volume 98.5 fL (80.0-100.0); Mean Platelet Volume 9.3 fL (9.4-12.4); Platelet Count 223 K/uL (130-400); RDW Coefficient of Variation 13.1 % (11.5-14.5); RDW Standard Deviation 47.5 fL (36.4-46.3); Red Blood Count 3.39 M/uL (4.70-6.10); White Blood Count 3.35 K/ul (4.8-10.8)
[2024-04-23] MEDS: SODIUM CHLORIDE 0.9% 500 ML IV ONE (01:57)
[2024-04-23] MEDS: CEFEPIME 2000MG 2,000 MG/20 ML SYR IV STA (01:57)
[2024-04-23] MEDS: SODIUM CHLORIDE 0.9% 1,000 ML IV SCH ×2 (01:57→08:25)
[2024-04-23] MEDS: OPTIRAY 320 100ml IV ONE (02:14)
--- NOTE | 2024-04-23 03:02 | XRay Report ---
EXAM: XR chest 1V portable CLINICAL HISTORY: SEPSIS. TECHNIQUE: X-ray chest was performed in 1 view: AP portable projection. COMPARISON: None. FINDINGS: Right-sided Portacath with Its distal tip is noted at the normal cavoatrial level. Cardiomegaly. Silhouette of the cardiac apex shallow left costophrenic angle. Prominent bilateral hilar with increased broncho-vascular markings. Inhomogenous haziness in the left lower zone. Right infra hilar opacity. The right Diaphragm is elevated compared to the left Old healed fracture of the left clavicle. Degenerative changes in the bones IMPRESSION: 1. The finding could represent infection/congestive changes with possible left-sided effusion/thickening. 2. Advise clinical correlation and follow-up CT chest if clinically warranted. Electronically signed by Stefanie Jenkins 04-23-2024 03:02 AM
[2024-04-23] MEDS: MAGNESIUM SULFATE / D5W 1 GM/100 ML BAG IV STA (03:18)
[2024-04-23 03:31] LABS: Appearance Urine Cloudy (Clear); Bacteria Urine Automated None Seen (None Seen); Bilirubin Urine Negative (Negative); Blood Urine Negative (Negative); Color Urine Yellow; Epithelial Cell Urine Auto 0-2 /hpf (0-2); Glucose Urine UA Negative (Negative); Granular Casts Urine Present /lpf (None Prsent); Ketones Urine Trace (Negative); Leukocyte Esterase Urine Negative (Negative); Nitrite Urine Negative (Negative); Protein Urine 2+ (Negative); RBC Urine Automated 0-2 /hpf (0-2); Specific Gravity Urine 1.022 (1.000-1.030); Urobilinogen Urine Negative (Negative); WBC Urine Automated 0-5 /hpf (0-5)
--- NOTE | 2024-04-23 03:32 | CT Scan Report ---
EXAM: CT chest diagnostic w con CLINICAL HISTORY: Chief complaint of a fever that started this evening. The temperature for at home was 104.5F. 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 Pt sees oncology in [place]. Reports having a persistent, moist cough since November. TECHNIQUE: Contiguous 3.[address] images of the chest were acquired with the administration of intravenous contrast. Coronal and sagittal reconstructions were obtained. 94 ml opti 320 was administered for post-contrast images. One of the following dose reduction techniques were utilized for this exam: Automated exposure control, adjustment of the mA and/or kV according to patient size, and use of iterative reconstruction. DLP: 998.3 mGy-cm, CTDI: 27.0 mGy. COMPARISON: CR chest 04/23/2024 01:22:43 ENROLLMENT REPRESENTATIVE was reviewed. FINDINGS: Lungs: Evidence of bilateral areas of GGO with air space filling consolidation is seen mainly in the posterior segment of both the upper lobe and the basal segment of both lower lobes. evidence of GG centrilobular pulmonary nodules seen mainly in apical-posterior segment of the left upper lobe with minimal tree in bud opacity. Lungs are clear with no evidence of consolidation, collapse, or focal lesions. No ground-glass opacities or interstitial changes. No pleural effusion or pleural thickening. Mediastinum: Enlarged upper right paratracheal LN measures about 1.7 x 1.3 cm in diameter with subcentimetric enlarged mediastinal LNs. No mediastinal mass or abnormal lymphadenopathy. Normal appearance of the thymus. Hilar Structures: Normal size and configuration, no enlargement. Heart and Great Vessels: Normal heart size and configuration. Slight thickening of the pericardium lining of the right ventricle. Normal caliber and course of the thoracic aorta and other great vessels. No significant atherosclerosis or aneurysm. Normal enhancement of the great vessels post-contrast. Pulmonary Arteries: No evidence of pulmonary embolism. Normal size and course of the pulmonary arteries. Esophagus: Normal course and caliber. No masses or dilatation. Bones: No fractures or lytic/sclerotic lesions. Normal bone density and alignment. No evidence of rib fractures. Chest Wall: No masses or soft tissue abnormalities. Upper Abdomen: The left renal simple cyst measures 7 x 6 cm in diameter. Visualized portions of the liver, spleen, pancreas, adrenal glands, and kidneys are normal. No abnormalities were noted in the visualized upper abdominal organs. Thyroid: Normal size and morphology. No nodules or masses. IMPRESSION: Bilateral areas of GGO with air space filling consolidation are seen mainly in the posterior segment of both the upper lobe and basal segment of both lower lobes associated with GG centrilobular nodules seen mainly in the apical-posterior segment of the left upper lobe causing minimal tree in bud opacity, the overall picture suggesting an ongoing infectious process, please correlate clinically. Electronically signed by Stefanie Jenkins 04-23-2024 03:32 AM
--- NOTE | 2024-04-23 06:06 | History & Physical Report ---
Date of Service April 23, 2024 Assessment & Plan (1) Sepsis: Plan: 78-year-old male with past medical history significant for nonseasonal allergic rhinitis, mild aortic valve regurgitation, history of CVA, CKD stage III, BPH, macular degeneration, chronic low back pain, follicular lymphoma grade 3A , history of tobacco use presents with high fevers and found to have pneumonia. Patient says having fever since last Wednesday. He took Tylenol and that subsided fever. Wednesday morning was okay. Then the Wednesday nighttime again he developed high fevers. says temperatures were running from 104 to 106 F and she has given 2 Tylenol's. In the ambulance the fever has come down. He was sweating at that time. He was very weak. Appetite is down. He is having ongoing cough since November. Currently denies any headache. No runny nose. Has some sore throat. Denies chest pain. Has shortness of breath on exertion. No nausea. No abdominal pain. Normal bowel and bladder movements. He ambulates without support.Denies rashes. No swelling the legs. Hemodynamics are okay. Sepsis Pneumonia Came with high fevers, tachycardia, leukopenia Elevated procalcitonin, initial lactic acid 2.2 and repeat is 1.0 CT chest showing pneumonia bilateral upper lobes and lower lobes Received cefepime in the ER which will be continued We will also start on doxycycline Will also follow Lyme screen and Anaplasma and Babesia screen and dna IV fluids Monitor the hemodynamics Cough Tessalon Perles and Robitussin AC as needed Hypomagnesia Replaced Will follow labs Enterorhinovirus Droplet precautions Supportive care Follicle lymphoma grade 3A Currently on maintenance chemo Next chemo on June 01/2025 per patient. Continue suppressive antibiotics CKD stage III Presented creatinine of 1.2 We will follow labs History of CVA On aspirin and statin GERD Omeprazole DVT prophylaxis Lovenox Disposition Med/telemetry Full code. History of Present Illness Chief Complaint: Fever and cough Primary Care Provider: Sandhya Brian MD 78-year-old male with past medical history significant for nonseasonal allergic rhinitis, mild aortic valve regurgitation, history of CVA, CKD stage III, BPH, macular degeneration, chronic low back pain, follicular lymphoma grade 3A , history of tobacco use presents with high fevers and found to have pneumonia. Patient says having fever since last Wednesday. He took Tylenol and that subsided fever. Wednesday morning was okay. Then the Wednesday nighttime again he developed high fevers. says temperatures were running from 104 to 106 F and she has given 2 Tylenol's. In the ambulance the fever has come down. He was sweating at that time. He was very weak. Appetite is down. He is having ongoing cough since November. Currently denies any headache. No runny nose. Has some sore throat. Denies chest pain. Has shortness of breath on exertion. No nausea. No abdominal pain. Normal bowel and bladder movements. He ambulates without support.Denies rashes. No swelling the legs. Hemodynamics are okay. Past medical history. As mentioned above. Past surgical history. Colonoscopy. Laparoscopic cholecystectomy. Left Inguinal hernia. Social history. . Former smoking. Snuff tobacco. Alcohol occasional. No drug use. Family history. Father had heart disorder. Mother had a heart disorder. Allergies Allergy/AdvReac Type Severity Reaction Status Date / Time pollen extracts Allergy Mild "TICKLE IN Verified 07/26/23 15:36 THROAT"-COUGH Home Medications Medication Instructions Recorded Confirmed Type acyclovir 200 mg capsule 200 mg PO BID 07/26/23 04/23/24 History ondansetron HCl 4 mg tablet 4 mg PO Q6H PRN Nausea And Vomiting 07/26/23 04/23/24 History prochlorperazine maleate 5 mg 5 mg PO BID PRN n/v 07/26/23 04/23/24 History tablet (Compazine) sildenafil 100 mg tablet 100 mg PO DAILY PRN sexual 07/26/23 04/23/24 Rx activity #20 tabs sulfamethoxazole 400 1 tab PO DAILY 07/26/23 04/23/24 History mg-trimethoprim 80 mg tablet (Bactrim) Singulair 10 mg DAILY 04/23/24 04/23/24 History aspirin 81 mg capsule 81 mg PO DAILY 04/23/24 04/23/24 History atorvastatin 10 mg tablet 10 mg DAILY 04/23/24 04/23/24 History fluticasone furoate 100 100 mcg inhalation DAILY 04/23/24 04/23/24 History mcg/actuation blister powder for inhalation (Arnuity Ellipta) fluticasone propionate 50 50 mcg intranasal BID 04/23/24 04/23/24 History mcg/actuation nasal spray,suspension omeprazole 20 mg capsule,delayed 20 mg DAILY 04/23/24 04/23/24 History release Past Med/Surg History Problem List Sepsis Acute kidney injury Impotence, organic Renal cyst Arthritis BPH (benign prostatic hyperplasia) History of cholecystectomy Medical History Acute kidney injury Social History Smoking Status: Unknown if ever smoked Tobacco Type: Cigarettes Hx Alcohol Use: No Hx Substance Use: No Preferred Language: Telugu Rate Supervisor Required: No Beliefs That Will Affect Care: None Current Living Situation: Spouse Feels Safe at Home: Yes Safety Concerns: Feels Safe At This Time Review of Systems Review of Systems: All systems reviewed & are unremarkable except as noted in HPI & below Physical Exam Physical Exam: General- Not in distress Head- atraumatic Eyes- PERRL. ENT- oropharynx clear Neck- supple, no JVD. Lungs- clear to auscultation no wheezing or crackles Heart- regular rate and rhythm; no murmur, no gallop. Abdomen- normal bowel sounds, soft, nontender, no distension. Extremities- no pretibial edema, no erythema seen Neuro- alert, oriented PERRL, no facial palsy; no dysarthria; moves extremities Results & Data Results & Data Vital Signs (Past 12 Hours) Vital Signs Temp Pulse Pulse Resp BP BP Pulse Ox 04/23/24 04:30 91 H 18 134/79 92 04/23/24 04:20 79 04/23/24 04:00 79 18 130/69 92 04/23/24 03:30 84 18 131/71 95 04/23/24 03:15 36.7 C 88 18 120/79 95 04/23/24 03:00 84 18 123/67 94 04/23/24 02:22 94 H 18 130/63 95 04/23/24 02:00 95 H 18 126/76 93 04/23/24 01:00 99 H 18 121/64 93 04/23/24 00:45 108 H 18 110/68 93 04/23/24 00:30 112 H 04/23/24 00:22 37.0 C 112 H 18 110/68 93 04/23/24 00:22 114 H 18 93 O2 Del Method 04/23/24 04:30 Room Air 04/23/24 04:20 04/23/24 04:00 Room Air 04/23/24 03:30 Room Air 04/23/24 03:15 Room Air 04/23/24 03:00 Room Air 04/23/24 02:22 Room Air 04/23/24 02:00 Room Air 04/23/24 01:00 Room Air 04/23/24 00:45 Room Air 04/23/24 00:30 04/23/24 00:22 Room Air 04/23/24 00:22 Room Air Diagnostic Findings Laboratory Results WBC 3.35 K/ul (4.8-10.8) L 04/23/24 00:22 RBC 3.39 M/uL (4.70-6.10) L 04/23/24 00:22 Hgb 11.6 g/dl (14.0-18.0) L 04/23/24 00:22 Hct 33.4 % (42.0-52.0) L 04/23/24 00:22 MCV 98.5 fL (80.0-100.0) 04/23/24 00:22 MCH 34.2 pg (25.0-34.0) H 04/23/24 00:22 MCHC 34.7 g/dL (32.0-36.0) 04/23/24 00:22 RDW Std Deviation 47.5 fL (36.4-46.3) H 04/23/24 00:22 RDW Coeff of Francisco Javier 13.1 % (11.5-14.5) 04/23/24 00:22 Plt Count 223 K/uL (130-400) 04/23/24 00:22 MPV 9.3 fL (9.4-12.4) L 04/23/24 00:22 Sodium 134 mmol/L (136-145) L 04/23/24 00:22 Potassium 4.0 mmol/L (3.5-5.1) 04/23/24 00:22 Chloride 104 mmol/L (98-107) 04/23/24 00:22 Carbon Dioxide 23 mmol/L (21-32) 04/23/24 00:22 Anion Gap 7 (3-11) 04/23/24 00:22 BUN 15 mg/dl (6-23) 04/23/24 00:22 Creatinine 1.29 mg/dl (0.6-1.4) 04/23/24 00:22 Est Cr Clr Drug Dosing 56.5 ml/min 04/23/24 00:22 eGFR 56.75 04/23/24 00:22 BUN/Creatinine Ratio 11.6 (10-20) 04/23/24 00:22 Glucose 186 mg/dl (70-99(Fasting)) H 04/23/24 00:22 Lactate 1.0 mmol/L (0.4-2.0) 04/23/24 03:09 Calcium 8.5 mg/dl (8.6-10.3) L 04/23/24 00:22 Magnesium 1.5 mg/dl (1.7-2.4) L 04/23/24 00:22 Total Bilirubin 0.4 mg/dl (0.2-1.0) 04/23/24 00:22 Direct Bilirubin 0.1 mg/dl (0-0.2) 04/23/24 00:22 AST 21 U/L (13-39) 04/23/24 00:22 ALT 14 U/L (7-52) 04/23/24 00:22 Alkaline Phosphatase 72 U/L (34-104) 04/23/24 00:22 Troponin I High Sens 11.9 pg/ml (0-20) 04/23/24 00:22 Total Protein 6.2 gm/dl (6.0-8.3) 04/23/24 00:22 Albumin 3.4 gm/dl (3.4-5.0) 04/23/24 00:22 Procalcitonin 0.55 ng/ml (0-0.5) H 04/23/24 00:22 Urine Color Yellow 04/23/24 02:25 Urine Appearance Cloudy (Clear) A 04/23/24 02:25 Urine pH 5.0 (4.5-7.5) 04/23/24 02:25 Ur Specific [place] 1.022 (1.000-1.030) 04/23/24 02:25 Urine Protein 2+ (Negative) H 04/23/24 02:25 Urine Glucose (UA) Negative (Negative) 04/23/24 02:25 Urine Ketones Trace (Negative) H 04/23/24 02:25 Urine Blood Negative (Negative) 04/23/24 02:25 Urine Nitrite Negative (Negative) 04/23/24 02:25 Urine Bilirubin Negative (Negative) 04/23/24 02:25 Urine Urobilinogen Negative (Negative) 04/23/24 02:25 Ur Leukocyte Esterase Negative (Negative) 04/23/24 02:25 Urine WBC (Auto) 0-5 /hpf (0-5) 04/23/24 02:25 Urine RBC (Auto) 0-2 /hpf (0-2) 04/23/24 02:25 U Hyaline Cast (Auto) 3-5 /lpf (0-2) H 04/23/24 02:25 U Epithel Cells (Auto) 0-2 /hpf (0-2) 04/23/24 02:25 Urine Bacteria (Auto) None Seen (None Seen) 04/23/24 02:25 Granular Casts Present /lpf (None Prsent) A 04/23/24 02:25 Adenovirus (PCR) Not Detected (NotDetected) 04/23/24 00:33 B. pertussis DNA (PCR) Not Detected (NotDetected) 04/23/24 00:33 B.parapertussis DNA PCR Not Detected (NotDetected) 04/23/24 00:33 C. pneumoniae DNA (PCR) Not Detected (NotDetected) 04/23/24 00:33 Coronavirus OC43 (PCR) Not Detected (NotDetected) 04/23/24 00:33 Coronavirus HKU1 (PCR) Not Detected (NotDetected) 04/23/24 00:33 Coronavirus 229E (PCR) Not Detected (NotDetected) 04/23/24 00:33 SARS-CoV-2 (PCR) Not Detected (NotDetected) 04/23/24 00:33 Coronavirus NL63 (PCR) Not Detected (NotDetected) 04/23/24 00:33 Human Metapneumovir PCR Not Detected (NotDetected) 04/23/24 00:33 Influenza Type A (PCR) Not Detected (NotDetected) 04/23/24 00:33 Influenza Type B (PCR) Not Detected (NotDetected) 04/23/24 00:33 M. pneumoniae (PCR) Not Detected (NotDetected) 04/23/24 00:33 Parainfluenza 1 (PCR) Not Detected (NotDetected) 04/23/24 00:33 Parainfluenza 2 (PCR) Not Detected (NotDetected) 04/23/24 00:33 Parainfluenza 3 (PCR) Not Detected (NotDetected) 04/23/24 00:33 Parainfluenza 4 (PCR) Not Detected (NotDetected) 04/23/24 00:33 RSV (PCR) Not Detected (NotDetected) 04/23/24 00:33 Entero/Rhino (PCR) DETECTED (NotDetected) A 04/23/24 00:33 Impressions Chest X-Ray 04/23/24 00:22 EXAM: XR chest 1V portable CLINICAL HISTORY: SEPSIS. TECHNIQUE: X-ray chest was performed in 1 view: AP portable projection. COMPARISON: None. FINDINGS: Right-sided Portacath with Its distal tip is noted at the normal cavoatrial level. Cardiomegaly. Silhouette of the cardiac apex shallow left costophrenic angle. Prominent bilateral hilar with increased broncho-vascular markings. Inhomogenous haziness in the left lower zone. Right infra hilar opacity. The right Diaphragm is elevated compared to the left Old healed fracture of the left clavicle. Degenerative changes in the bones IMPRESSION: 1. The finding could represent infection/congestive changes with possible left-sided effusion/thickening. 2. Advise clinical correlation and follow-up CT chest if clinically warranted. Electronically signed by Stefanie Jenkins 04-23-2024 03:[address] 04/23/24 01:43 EXAM: CT chest diagnostic w con CLINICAL HISTORY: Chief complaint of a fever that started this evening. The temperature for at home was 104.5F. 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 Pt sees oncology in [place]. Reports having a persistent, moist cough since November. TECHNIQUE: Contiguous 3.[address] images of the chest were acquired with the administration of intravenous contrast. Coronal and sagittal reconstructions were obtained. 94 ml opti 320 was administered for post-contrast images. One of the following dose reduction techniques were utilized for this exam: Automated exposure control, adjustment of the mA and/or kV according to patient size, and use of iterative reconstruction. DLP: 998.3 mGy-cm, CTDI: 27.0 mGy. COMPARISON: CR chest 04/23/2024 01:22:43 GUS[employer] F[employer] was reviewed. FINDINGS: Lungs: Evidence of bilateral areas of GGO with air space filling consolidation is seen mainly in the posterior segment of both the upper lobe and the basal segment of both lower lobes. evidence of GG centrilobular pulmonary nodules seen mainly in apical-posterior segment of the left upper lobe with minimal tree in bud opacity. Lungs are clear with no evidence of consolidation, collapse, or focal lesions. No ground-glass opacities or interstitial changes. No pleural effusion or pleural thickening. Mediastinum: Enlarged upper right paratracheal LN measures about 1.7 x 1.3 cm in diameter with subcentimetric enlarged mediastinal LNs. No mediastinal mass or abnormal lymphadenopathy. Normal appearance of the thymus. Hilar Structures: Normal size and configuration, no enlargement. Heart and Great Vessels: Normal heart size and configuration. Slight thickening of the pericardium lining of the right ventricle. Normal caliber and course of the thoracic aorta and other great vessels. No significant atherosclerosis or aneurysm. Normal enhancement of the great vessels post-contrast. Pulmonary Arteries: No evidence of pulmonary embolism. Normal size and course of the pulmonary arteries. Esophagus: Normal course and caliber. No masses or dilatation. Bones: No fractures or lytic/sclerotic lesions. Normal bone density and alignment. No evidence of rib fractures. Chest Wall: No masses or soft tissue abnormalities. Upper Abdomen: The left renal simple cyst measures 7 x 6 cm in diameter. Visualized portions of the liver, spleen, pancreas, adrenal glands, and kidneys are normal. No abnormalities were noted in the visualized upper abdominal organs. Thyroid: Normal size and morphology. No nodules or masses. IMPRESSION: Bilateral areas of GGO with air space filling consolidation are seen mainly in the posterior segment of both the upper lobe and basal segment of both lower lobes associated with GG centrilobular nodules seen mainly in the apical-posterior segment of the left upper lobe causing minimal tree in bud opacity, the overall picture suggesting an ongoing infectious process, please correlate clinically. Electronically signed by Stefanie Jenkins 04-23-2024 03:32 AM ECG Additional Comments: ECG sinus tachycardia rate of 111. Right bundle branch block. T wave abnormality lateral leads. QTc 473. Code Status & VTE Plan VTE Prophylaxis Plan VTE Prophylaxis will be ordered: Yes
[2024-04-23] MEDS: MAGNESIUM SULFATE / D5W 1 GM/100 ML BAG IV ONE (06:18)
[2024-04-23] MEDS ORDERED: LEVALBUTEROL 1.25 MG/3 ML NEB NEB PRN (06:40)
[2024-04-23] MEDS ORDERED: ACETAMINOPHEN 325 MG TAB PO PRN (06:40)
[2024-04-23] MEDS ORDERED: NITROGLYCERIN SL 0.4 MG/TAB TAB SL PRN (06:40)
[2024-04-23] MEDS ORDERED: guaiFENesin/CODEINE 100MG/10MG 5ML UDC PO PRN (06:40)
[2024-04-23] MEDS: DOXYCYCLINE HYCLATE 100 MG in DEXTROSE 5% MINI-B 100 ML IV STA (06:43)
[2024-04-23 07:05] LABS: Basophils # (auto) 0.04 K/uL (0.00-0.20); Basophils % (auto) 1.2 %; Dohle Bodies 1+; Eosinophils # (auto) 0.06 K/uL (0.00-0.50); Eosinophils % (auto) 1.8 %; Immature Granulocytes # (auto) 0.22 K/uL (0.01-0.20); Immature Granulocytes % (auto) 6.6 %; Lymphocytes # (auto) 0.52 K/uL (1.20-3.40); Lymphocytes % (auto) 15.5 %; Monocytes # (auto) 0.54 K/uL (0.11-0.59); Monocytes % (auto) 16.1 %; Neutrophils # (auto) 1.97 K/uL (1.40-6.50); Neutrophils % (auto) 58.8 %; Polychromasia 2+
--- NOTE | 2024-04-23 07:29 | Electrocardiogram Report ---
Test Reason : Blood Pressure : */* mmHG Vent. Rate : 111 BPM Atrial Rate : 111 BPM P-R Int : 178 ms QRS Dur : 138 ms QT Int : 348 ms P-R-T Axes : 52 -25 2 degrees QTcB Int : 473 ms Sinus tachycardia Right bundle branch block Minimal voltage criteria for LVH, may be normal variant Inferior infarct , age undetermined T wave abnormality, consider lateral ischemia Abnormal ECG When compared with ECG of 18-Sep-2016 21:01, Vent. rate has increased by 45 bpm Right bundle branch block is now Present Confirmed by Sander Power ([id number]) on 04/23/2024 7:28:56 AM Referred By: REFERRED SELF Confirmed By: Sander Power
[2024-04-23] MEDS: ENOXAPARIN INJ 40 MG/0.4 ML SYR SQ SCH (08:22)
[2024-04-23] MEDS: ASPIRIN 81 MG ECTAB PO SCH (08:24)
[2024-04-23] MEDS: BENZONATATE 100 MG CAPSULE PO SCH (08:24)
[2024-04-23] MEDS: ACYCLOVIR 200 MG CAP PO SCH (09:16)
[2024-04-23] MEDS: ATORVASTATIN 10 MG TAB PO SCH (09:16)
[2024-04-23] MEDS: FLUTICASONE PROPIONATE NA SPR 16 GM BTL SCH (09:20)
[2024-04-23] MEDS: FLUTICASONE FUROATE 100MCG 14 PUFFS/INHALER INH SCH (09:20)
[2024-04-23 09:25] LABS: BUN Creatinine Ratio 11.3 (10-20); Calcium 7.8 mg/dl (8.6-10.3); Creatinine Clr Calc Pharmacy 54.8 ml/min; Magnesium 1.5 mg/dl (1.7-2.4); Potassium 4.4 mmol/L (3.5-5.1)
[2024-04-23 09:41] LABS: Hematocrit (blood only) 31.2 % (42.0-52.0); Hemoglobin 10.6 g/dl (14.0-18.0); Mean Corpuscular Hemoglobin 34.2 pg (25.0-34.0); Mean Corpuscular Volume 100.6 fL (80.0-100.0); Mean Platelet Volume 9.1 fL (9.4-12.4); Platelet Count 212 K/uL (130-400); RDW Coefficient of Variation 13.3 % (11.5-14.5); RDW Standard Deviation 49.2 fL (36.4-46.3); White Blood Count 3.49 K/ul (4.8-10.8)
[2024-04-23 10:05] LABS: ALC (manual) 0.59 K/uL (1.2-3.4); ANC (manual) 2.02 K/uL (1.4-6.5); Basophils # (manual) 0.07 K/uL (0-0.2); Basophils % (manual) 2 %; Dohle Bodies 2+; Eosinophils # (manual) 0.03 K/uL (0-0.50); Eosinophils % (manual) 1 %; Lymphocytes # (manual) 0.59 K/uL (1.2-3.4); Lymphocytes % (manual) 17 %; Metamyelocytes # (manual) 0.17 K/uL (0-0); Metamyelocytes % (manual) 5 %; Monocytes # (manual) 0.59 K/uL (0.11-0.59); Monocytes % (manual) 17 %; Neutrophils # (manual) 2.02 K/uL (1.40-6.50); Neutrophils % (manual) 58 %
[2024-04-23] MEDS ORDERED: ONDANSETRON INJ 2 MG/ML 2 ML VIAL IV PRN (11:28)
[2024-04-23] MEDS: CEFEPIME 2000MG 2,000 MG/20 ML SYR IV SCH (13:12)
--- NOTE | 2024-04-23 14:25 | Pulmonary Consultation ---
Date of Consultation April 23, 2024 Assessment & Plan (1) Community acquired pneumonia: (2) Chronic cough: (3) Follicular lymphoma: (4) Fever: (5) Acute viral bronchiolitis: (6) Snuff user: Plan 78-year-old male who presents to the hospital with evidence of community- acquired pneumonia and viral pneumonia was been started on broad-spectrum antibiotics by the hospitalist service. Fever curve has improved dramatically with fluids and antibiotics. Patient still with productive cough. Suspect viral bronchiolitis. Will start the patient on formoterol twice daily and hypertonic saline for pulmonary clearance. Will start the patient on senna spirometer and flutter valve as well. Continue cefepime and doxycycline. Consider de-escalating if clinically improved and sputum cultures did not reveal pseudomonal organisms to cefdinir and Doxy. Check urine Legionella. From a chronic cough perspective, the patient endorses a dry cough since November. Will evaluate with AFB sputum cultures to ensure he is not colonized with JUDY or other atypical bugs. Patient also chews snuff and has chronic sinusitis. Cessation of tobacco products encouraged. ENT evaluation as an outpatient may also be warranted. Lastly, recommend repeat CT chest in 4 to 6 weeks prior to his next rituximab infusion to ensure resolution of infiltrates. Other etiologies were infiltrates may include pneumonitis from rituximab. History of Present Illness Reason for Consultation: Pneumonia in the setting of follicular lymphoma Attending Physician: Luis Felipe Dick MD History of Present Illness 78-year-old male with a history of nonseasonal allergic rhinitis, CVA, CKD stage III, macular degeneration, tobacco follicular lymphoma who presented to the hospital due to ongoing fevers, chills and fatigue. He has had fevers as high as 104. He had a CT of his chest last night which revealed bilateral areas of groundglass opacities and multifocal patchy consolidation. Respiratory viral panel on admission was positive for rhinovirus. Nasal MRSA screen was negative. Blood cultures are pending. Patient is leukopenic to [id number]. Patient is currently receiving doxycycline and cefepime. Also on prophylactic acyclovir and Bactrim. Patient follows with hematology through [facility] and also through [facility]. Reviewed note from December 2023. The patient is on maintenance rituximab therapy every 8 weeks. Patient notes that he has had a chronic cough which is mostly been dry since November. He has been seen by [facility] we did a PFT on him and told him that he had asthma. He has been on Arnuity for several months with minimal relief of his cough. He notes that as of the last couple days he has been having increased cough with sputum production. Allergies Allergy/AdvReac Type Severity Reaction Status Date / Time pollen extracts Allergy Mild "TICKLE IN Verified 07/26/23 15:36 THROAT"-COUGH Home Medications Medication Instructions Recorded Confirmed Type acyclovir 200 mg capsule 200 mg PO BID 07/26/23 04/23/24 History ondansetron HCl 4 mg tablet 4 mg PO Q6H PRN Nausea And Vomiting 07/26/23 04/23/24 History prochlorperazine maleate 5 mg 5 mg PO BID PRN n/v 07/26/23 04/23/24 History tablet (Compazine) sildenafil 100 mg tablet 100 mg PO DAILY PRN sexual 07/26/23 04/23/24 Rx activity #20 tabs sulfamethoxazole 400 1 tab PO DAILY 07/26/23 04/23/24 History mg-trimethoprim 80 mg tablet (Bactrim) Singulair 10 mg DAILY 04/23/24 04/23/24 History aspirin 81 mg capsule 81 mg PO DAILY 04/23/24 04/23/24 History atorvastatin 10 mg tablet 10 mg DAILY 04/23/24 04/23/24 History fluticasone furoate 100 100 mcg inhalation DAILY 04/23/24 04/23/24 History mcg/actuation blister powder for inhalation (Arnuity Ellipta) fluticasone propionate 50 50 mcg intranasal BID 04/23/24 04/23/24 History mcg/actuation nasal spray,suspension omeprazole 20 mg capsule,delayed 20 mg DAILY 04/23/24 04/23/24 History release Patient History Medical History Acute kidney injury Social History Smoking Status: Unknown if ever smoked Tobacco Type: Cigarettes Hx Alcohol Use: No Hx Substance Use: No Preferred Language: Mongolian Access Nurse Required: No Beliefs That Will Affect Care: None Current Living Situation: Spouse Feels Safe at Home: Yes Safety Concerns: Feels Safe At This Time Review of Systems Review of Systems: All systems reviewed & are unremarkable except as noted in HPI & below Physical Exam Physical Exam: Constitutional: Patient appears to be of their stated age. Patient is in no apparent distress. Patient is well-developed. Eyes: Pupils are equal round and reactive to light. Conjunctivae are normal. Anicteric sclera. Ears nose, mouth and throat: No cyanosis. Neck: Trachea is midline. Visual inspection is normal. Respiratory: Diffuse crackles in the lower lobes bilaterally. Cardiovascular: Regular rate and rhythm. No murmurs. No edema. Gastrointestinal: Normal bowel sounds, soft, nontender and nondistended. No hepatosplenomegaly noted. Musculoskeletal: No cyanosis. Patient is able to move all extremities. Strength is 5 out of 5 in the upper and lower extremities. Skin: No rashes, warm dry and intact. Neurologic: No obvious focal neurological deficits seen. Psychiatric: Alert and oriented x3 with a euthymic affect. Results & Data Results & Data Vital Signs (Past 12 Hours) Vital Signs Temp Pulse Pulse Resp BP BP Pulse Ox 04/23/24 13:06 83 25 H 92 04/23/24 12:54 85 28 H 93 04/23/24 12:33 93 H 22 04/23/24 12:24 89 29 H 93 04/23/24 12:12 91 H 24 93 04/23/24 12:09 98 H 24 92 04/23/24 12:01 145/78 H 04/23/24 11:57 90 17 91 04/23/24 11:51 98 H 22 94 04/23/24 11:45 85 27 H 91 04/23/24 11:45 37.7 C H 89 20 135/71 93 04/23/24 11:44 135/71 04/23/24 11:39 88 17 04/23/24 11:30 86 25 H 04/23/24 11:21 89 21 04/23/24 10:51 89 19 04/23/24 10:33 85 24 04/23/24 10:24 88 28 H 04/23/24 10:03 89 28 H 04/23/24 09:54 89 25 H 04/23/24 09:42 95 H 26 H 04/23/24 09:39 102 H 20 04/23/24 09:12 87 26 H 91 04/23/24 09:09 85 27 H 91 04/23/24 08:42 86 28 H 90 04/23/24 08:33 87 23 91 04/23/24 08:21 93 H 23 91 04/23/24 08:00 86 17 90 04/23/24 08:00 151/72 H 04/23/24 07:57 85 25 H 92 04/23/24 07:40 91 H 23 151/76 H 92 04/23/24 07:39 91 H 20 151/76 H 92 04/23/24 07:39 04/23/24 07:33 91 H 30 H 92 04/23/24 07:27 91 H 25 H 92 04/23/24 07:01 74 04/23/24 07:00 141/72 H 04/23/24 04:30 91 H 18 134/79 92 04/23/24 04:20 79 04/23/24 04:00 79 18 130/69 92 04/23/24 03:30 84 18 131/71 95 04/23/24 03:15 36.7 C 88 18 120/79 95 04/23/24 03:00 84 18 123/67 94 04/23/24 02:22 94 H 18 130/63 95 Pulse Ox O2 Del Method O2 Del Method 04/23/24 13:06 04/23/24 12:54 04/23/24 12:33 04/23/24 12:24 04/23/24 12:12 04/23/24 12:09 04/23/24 12:01 04/23/24 11:57 04/23/24 11:51 04/23/24 11:45 04/23/24 11:45 Room Air 04/23/24 11:44 04/23/24 11:39 04/23/24 11:30 04/23/24 11:21 04/23/24 10:51 04/23/24 10:33 04/23/24 10:24 04/23/24 10:03 04/23/24 09:54 04/23/24 09:42 04/23/24 09:39 04/23/24 09:12 04/23/24 09:09 04/23/24 08:42 04/23/24 08:33 04/23/24 08:21 04/23/24 08:00 04/23/24 08:00 04/23/24 07:57 04/23/24 07:40 Room Air 04/23/24 07:39 Room Air 04/23/24 07:39 92 Room Air 04/23/24 07:33 04/23/24 07:27 04/23/24 07:01 04/23/24 07:00 04/23/24 04:30 Room Air 04/23/24 04:20 04/23/24 04:00 Room Air 04/23/24 03:30 Room Air 04/23/24 03:15 Room Air 04/23/24 03:00 Room Air 04/23/24 02:22 Room Air PG Care Time/CCT Total # of Minutes Spent Total Time Spent with Patient: Total time spent is greater than 50% in coordination of care (as documented) at patient's floor/unit and/or counseling patient: Coding Level of Care Code 24343 INT INP/OBS CARE 375MIN Diagnoses Community acquired pneumonia J18.9 Chronic cough R05.3 Follicular lymphoma C82.90 Fever R50.9 Acute viral bronchiolitis J21.8; B97.89 Snuff user Z72.0
--- NOTE | 2024-04-23 15:54 | Communication Note ---
Date of Service: April 23, 2024 The patient was seen and examined in emergency room in presence of the . He has significant past medical history of follicular lymphoma with ongoing chemo. Presented with cough since November of last year with fever and shortness of breath since yesterday. Has multifocal pneumonia and has been on intravenous antibiotic. Remains hemodynamically stable. Pulmonary service has been consulted. Full progress note will be done tomorrow. Dr Irais Dick
--- NOTE | 2024-04-23 16:29 | Emergency Department Note ---
Impression & Plan Sepsis, Community acquired pneumonia, Rhinovirus, Hypomagnesemia Admit to the [facility] ED Provider Note NAME: MARCELL CALDERON Jr AGE: 78 SEX: Male INFORMANT: Patient ED PROVIDER(S): Millicent Goss DO CHIEF COMPLAINT: Fever and staggering gait PLAN: Disposition: Admit to the [facility] MEDICAL DECISION MAKING: This is a 78-year-old male patient with a history of lymphoma on Rituxan who presents to the emergency department with intermittent fevers. The patient has been taking Tylenol with fever reduction but the fever returned at 104.5 and he began to stagger. On exam, the patient has a significant wet cough. The explains that he has had this cough since November. At that time, chest x-ray was negative but since then he has had a PET scan which they describe had "junk" in his lungs. On exam today, CT scan of the lungs shows evidence of bilateral pneumonias. On presentation, I was concerned for the possibility of sepsis given the patient's fever and white blood cell count 3.3. Lactate was 2.2 and procalcitonin was 0.5. Patient was treated with IV cefepime and bolused with 30 mL/kg of crystalloid per ideal body weight. Of note, patient's bio fire test was positive for rhinovirus/enterovirus. Other laboratory testing revealed a magnesium of 1.5. This was replaced with IV magnesium. Glucose was 186. Troponin was negative. Lab contacted me to make me aware that the patient's blood was concerning for the possibility of anaplasmosis. This was discussed with the admitting team and they will start doxycycline and perform additional testing. The patient does spend some time outdoors. Care/management discussed with: The patient's , probation manager, and [facility] Triage Nursing notes: reviewed and agree with them. Vital Signs: reviewed and remarkable for fever and tachycardia Additional History obtained from: Patient's is at the bedside and keeps a notebook of medical issues Differential Diagnosis: Sepsis, pneumonia, upper respiratory virus, UTI, bronchitis Diagnostics, independently interpreted by me: ECG: Sinus tachycardia with a right bundle branch block which is a new finding. There is no ST segment elevation or signs of ischemia. There are no other ectopic beats Cardiac Monitoring: Sinus tachycardia at 112 Imaging studies: Portable chest x-ray: as per [facility] CT scan of the chest: As per [facility] HPI: 78 year old Male arrives for evaluation of fever and staggering gait. Patient has had a fever intermittently since Wednesday. He has been taking Tylenol and the fever would go down. Patient is up-to-date on flu shot and COVID shot. He has a history of lymphoma and is on Rituxan. Patient's fever returned tonight and was 104.5. He Tylenol but began to stagger and his called EMS. PAST MEDICAL HISTORY: See Below, PAST SURGICAL HISTORY: See Below, SOCIAL HISTORY: See Below, HOME MEDICATIONS: See list ALLERGIES: See list VITALS: See Below PHYSICAL EXAMINATION: General: Patient has a significant frequent wet cough HEENT: Head - normocephalic and atraumatic. Pupils are equal, round, and reactive to light. Extraocular eye muscles are intact, and sclera are anicteric. Nose - moist nasal mucosa without discharge. Mouth - moist buccal mucosa. Oropharynx is nonerythematous and there is no tonsillar exudate or edema noted. Neck: Supple; no nuchal rigidity or cervical lymphadenopathy Heart: Tachycardic rate and rhythm. There is a normal S1 and S2 with no murmurs, clicks, or gallops appreciated. Lungs: Rhonchi in all lung rojo Abdomen: Soft, completely nontender, mildly distended, with good bowel sounds. There are no palpable pulsatile masses or hepatosplenomegaly. There is no guarding, rigidity, or rebound noted. Extremities: No evidence of cyanosis, clubbing, or edema. There are easily palpable peripheral pulses. Skin:, Warm and dry with good turgor and no rashes. Emergency department treatment: media monitor, IV normal saline bolus-2500ml, IV cefepime IV magnesium Emergency Department course: The patient was evaluated in room A-9. A complete history and physical was performed. An order was placed for continuous cardiac monitoring. The patient was in a sinus tachycardia at a rate of 112. A septic protocol was performed. Upper respiratory bio fire was obtained. Patient was bolused with IV normal saline solution. Portable chest x-ray was performed. Patient was given a dose of IV cefepime. A twelve-lead EKG was obtained. A urine was obtained. The patient went for CT scan of the chest. Given IV magnesium for replacement. I reviewed results of trach, laboratory studies and. I discussed the case with the [facility] Hospitalist and they will admit for further inpatient care. I have personally spent greater than 60 minutes of critical care time in the direct management of this patient. This includes bedside care, interpretation of diagnostic studies, and testing, discussion with consultants, patient, and family members, and other required patient management activities. This 60minutes is in excess of all separately billable procedures. Past Med/Surg History Problem List Hypomagnesemia (Acute) Rhinovirus (Acute) Snuff user Acute viral bronchiolitis Fever Follicular lymphoma Chronic cough Community acquired pneumonia (Acute) Sepsis (Acute) Acute kidney injury Impotence, organic Renal cyst Arthritis BPH (benign prostatic hyperplasia) History of cholecystectomy Medical History Acute kidney injury Social History Smoking Status: Unknown if ever smoked Tobacco Type: Cigarettes Hx Alcohol Use: No Hx Substance Use: No Preferred Language: Citizen Of [place] Sort Line Required: No Beliefs That Will Affect Care: None Current Living Situation: Spouse Feels Safe at Home: Yes Safety Concerns: Feels Safe At This Time Allergies Allergies Allergy/AdvReac Type Severity Reaction Status Date / Time pollen extracts Allergy Mild "TICKLE IN Verified 07/26/23 15:36 THROAT"-COUGH Home Meds Home Medications Medication Instructions Recorded Confirmed acyclovir 200 mg capsule 200 mg PO BID 07/26/23 04/23/24 ondansetron HCl 4 mg tablet 4 mg PO Q6H PRN Nausea And Vomiting 07/26/23 04/23/24 prochlorperazine maleate 5 mg 5 mg PO BID PRN n/v 07/26/23 04/23/24 tablet (Compazine) sulfamethoxazole 400 1 tab PO DAILY 07/26/23 04/23/24 mg-trimethoprim 80 mg tablet (Bactrim) Singulair 10 mg DAILY 04/23/24 04/23/24 aspirin 81 mg capsule 81 mg PO DAILY 04/23/24 04/23/24 atorvastatin 10 mg tablet 10 mg DAILY 04/23/24 04/23/24 fluticasone furoate 100 100 mcg inhalation DAILY 04/23/24 04/23/24 mcg/actuation blister powder for inhalation (Arnuity Ellipta) fluticasone propionate 50 50 mcg intranasal BID 04/23/24 04/23/24 mcg/actuation nasal spray,suspension omeprazole 20 mg capsule,delayed 20 mg DAILY 04/23/24 04/23/24 release Previous Rx's Medication Instructions Recorded sildenafil 100 mg tablet 100 mg PO DAILY PRN sexual 07/26/23 activity #20 tabs Results & Data (ED) Vital Signs Vital Signs - 24 hr 04/23/24 00:22 04/23/24 00:22 04/23/24 00:30 Temperature 37.0 C Temperature Source Oral Pulse Rate 114 H 112 H 112 H Pulse Rate [Apical] Pulse Rhythm Regular Regular Pulse Rhythm [Apical] Pulse Strength Normal Pulse Strength [Apical] Respiratory Rate 18 18 Respiratory Effort / Characteristics Non-Labored Spontaneous Respiratory Depth Normal Respiratory Pattern Regular Blood Pressure 110/68 Blood Pressure [Right Arm] Blood Pressure Mean 82 Blood Pressure Mean [Right Arm] Blood Pressure Position Semi-fowlers Blood Pressure Position [Right Arm] Pulse Oximetry 93 93 Oxygen Delivery Method Room Air Room Air Sepsis Recent Fever Within 48 Hours Yes Sepsis New/Unexplained Change in Mental Status No Sepsis Action Taken by Nursing No Action Required 04/23/24 00:45 04/23/24 01:00 04/23/24 02:00 Temperature Temperature Source Pulse Rate Pulse Rate [Apical] 108 H 99 H 95 H Pulse Rhythm Pulse Rhythm [Apical] Regular Regular Regular Pulse Strength Pulse Strength [Apical] Normal Normal Normal Respiratory Rate 18 18 18 Respiratory Effort / Characteristics Non-Labored Spontaneous Non-Labored Spontaneous Non-Labored Spontaneous Respiratory Depth Normal Normal Normal Respiratory Pattern Regular Regular Regular Blood Pressure Blood Pressure [Right Arm] 110/68 121/64 126/76 Blood Pressure Mean Blood Pressure Mean [Right Arm] 82 83 92 Blood Pressure Position Blood Pressure Position [Right Arm] Semi-fowlers Semi-fowlers Semi-fowlers Pulse Oximetry 93 93 93 Oxygen Delivery Method Room Air Room Air Room Air Sepsis Recent Fever Within 48 Hours Sepsis New/Unexplained Change in Mental Status Sepsis Action Taken by Nursing 04/23/24 02:22 04/23/24 03:00 04/23/24 03:15 Temperature 36.7 C Temperature Source Oral Pulse Rate Pulse Rate [Apical] 94 H 84 88 Pulse Rhythm Pulse Rhythm [Apical] Regular Regular Regular Pulse Strength Pulse Strength [Apical] Normal Normal Normal Respiratory Rate 18 18 18 Respiratory Effort / Characteristics Non-Labored Spontaneous Non-Labored Spontaneous Non-Labored Spontaneous Respiratory Depth Normal Normal Normal Respiratory Pattern Regular Regular Regular Blood Pressure Blood Pressure [Right Arm] 130/63 123/67 120/79 Blood Pressure Mean Blood Pressure Mean [Right Arm] 85 85 92 Blood Pressure Position Blood Pressure Position [Right Arm] Semi-fowlers Semi-fowlers Semi-fowlers Pulse Oximetry 95 94 95 Oxygen Delivery Method Room Air Room Air Room Air Sepsis Recent Fever Within 48 Hours Sepsis New/Unexplained Change in Mental Status Sepsis Action Taken by Nursing 04/23/24 03:30 04/23/24 04:00 04/23/24 04:20 Temperature Temperature Source Pulse Rate 79 Pulse Rate [Apical] 84 79 Pulse Rhythm Pulse Rhythm [Apical] Regular Regular Pulse Strength Pulse Strength [Apical] Normal Normal Respiratory Rate 18 18 Respiratory Effort / Characteristics Non-Labored Spontaneous Non-Labored Spontaneous Respiratory Depth Normal Normal Respiratory Pattern Regular Regular Blood Pressure Blood Pressure [Right Arm] 131/71 130/69 Blood Pressure Mean Blood Pressure Mean [Right Arm] 91 89 Blood Pressure Position Blood Pressure Position [Right Arm] Semi-fowlers Semi-fowlers Pulse Oximetry 95 92 Oxygen Delivery Method Room Air Room Air Sepsis Recent Fever Within 48 Hours Sepsis New/Unexplained Change in Mental Status Sepsis Action Taken by Nursing 04/23/24 04:30 Temperature Temperature Source Pulse Rate Pulse Rate [Apical] 91 H Pulse Rhythm Pulse Rhythm [Apical] Regular Pulse Strength Pulse Strength [Apical] Normal Respiratory Rate 18 Respiratory Effort / Characteristics Non-Labored Spontaneous Respiratory Depth Normal Respiratory Pattern Regular Blood Pressure Blood Pressure [Right Arm] 134/79 Blood Pressure Mean Blood Pressure Mean [Right Arm] 97 Blood Pressure Position Blood Pressure Position [Right Arm] Semi-fowlers Pulse Oximetry 92 Oxygen Delivery Method Room Air Sepsis Recent Fever Within 48 Hours Sepsis New/Unexplained Change in Mental Status Sepsis Action Taken by Nursing Laboratory Data 04/23/24 09:10 04/23/24 03:09 Lab Results 04/23/24 04/23/24 04/23/24 Range/Units 00:22 00:33 02:25 WBC 3.35 L (4.8-10.8) K/ul RBC 3.39 L (4.70-6.10) M/uL Hgb 11.6 L (14.0-18.0) g/dl Hct 33.4 L (42.0-52.0) % MCV 98.5 (80.0-100.0) fL MCH 34.2 H (25.0-34.0) pg MCHC 34.7 (32.0-36.0) g/dL RDW Std Deviation 47.5 H (36.4-46.3) fL RDW Coeff of Francisco Javier 13.1 (11.5-14.5) % Plt Count 223 (130-400) K/uL MPV 9.3 L (9.4-12.4) fL Immature Gran % (Auto) 6.6 % Neut % (Auto) 58.8 % Lymph % (Auto) 15.5 % [place] % (Auto) 16.1 % Eos % (Auto) 1.8 % Baso % (Auto) 1.2 % Neut # (Auto) 1.97 (1.40-6.50) K/uL Lymph # (Auto) 0.52 L (1.20-3.40) K/uL [place] # (Auto) 0.54 (0.11-0.59) K/uL Eos # (Auto) 0.06 (0.00-0.50) K/uL Baso # (Auto) 0.04 (0.00-0.20) K/uL Immature Gran # (Auto) 0.22 H (0.01-0.20) K/uL Blood Smear Review Dohle Bodies 1+ Polychromasia 2+ Sodium 134 L (136-145) mmol/L Potassium 4.0 (3.5-5.1) mmol/L Chloride 104 (98-107) mmol/L Carbon Dioxide 23 (21-32) mmol/L Anion Gap 7 (3-11) BUN 15 (6-23) mg/dl Creatinine 1.29 (0.6-1.4) mg/dl Est Cr Clr Drug Dosing 56.5 ml/min eGFR 56.75 BUN/Creatinine Ratio 11.6 (10-20) Glucose 186 H (70-99(Fasting)) mg/dl Lactate 2.2 H* (0.4-2.0) mmol/L Calcium 8.5 L (8.6-10.3) mg/dl Magnesium 1.5 L (1.7-2.4) mg/dl Total Bilirubin 0.4 (0.2-1.0) mg/dl Direct Bilirubin 0.1 (0-0.2) mg/dl AST 21 (13-39) U/L ALT 14 (7-52) U/L Alkaline Phosphatase 72 (34-104) U/L Troponin I High Sens 11.9 (0-20) pg/ml Total Protein 6.2 (6.0-8.3) gm/dl Albumin 3.4 (3.4-5.0) gm/dl Procalcitonin 0.55 H (0-0.5) ng/ml Urine Color Yellow Urine Appearance Cloudy A (Clear) Urine pH 5.0 (4.5-7.5) Ur Specific [place] 1.022 (1.000-1.030) Urine Protein 2+ H (Negative) Urine Glucose (UA) Negative (Negative) Urine Ketones Trace H (Negative) Urine Blood Negative (Negative) Urine Nitrite Negative (Negative) Urine Bilirubin Negative (Negative) Urine Urobilinogen Negative (Negative) Ur Leukocyte Esterase Negative (Negative) Urine WBC (Auto) 0-5 (0-5) /hpf Urine RBC (Auto) 0-2 (0-2) /hpf U Hyaline Cast (Auto) 3-5 H (0-2) /lpf U Epithel Cells (Auto) 0-2 (0-2) /hpf Urine Bacteria (Auto) None Seen (None Seen) Granular Casts Present A (None Prsent) /lpf Adenovirus (PCR) Not Detected (NotDetected) B. pertussis DNA (PCR) Not Detected (NotDetected) B.parapertussis DNA PCR Not Detected (NotDetected) Lyme Disease Screen Negative (Negative) C. pneumoniae DNA (PCR) Not Detected (NotDetected) Coronavirus OC43 (PCR) Not Detected (NotDetected) Coronavirus HKU1 (PCR) Not Detected (NotDetected) Coronavirus 229E (PCR) Not Detected (NotDetected) SARS-CoV-2 (PCR) Not Detected (NotDetected) Coronavirus NL63 (PCR) Not Detected (NotDetected) Human Metapneumovir PCR Not Detected (NotDetected) Influenza Type A (PCR) Not Detected (NotDetected) Influenza Type B (PCR) Not Detected (NotDetected) M. pneumoniae (PCR) Not Detected (NotDetected) Parainfluenza 1 (PCR) Not Detected (NotDetected) Parainfluenza 2 (PCR) Not Detected (NotDetected) Parainfluenza 3 (PCR) Not Detected (NotDetected) Parainfluenza 4 (PCR) Not Detected (NotDetected) RSV (PCR) Not Detected (NotDetected) Entero/Rhino (PCR) DETECTED A (NotDetected) 04/23/24 Range/Units 03:09 WBC (4.8-10.8) K/ul RBC (4.70-6.10) M/uL Hgb (14.0-18.0) g/dl Hct (42.0-52.0) % MCV (80.0-100.0) fL MCH (25.0-34.0) pg MCHC (32.0-36.0) g/dL RDW Std Deviation (36.4-46.3) fL RDW Coeff of Francisco Javier (11.5-14.5) % Plt Count (130-400) K/uL MPV (9.4-12.4) fL Immature Gran % (Auto) % Neut % (Auto) % Lymph % (Auto) % [place] % (Auto) % Eos % (Auto) % Baso % (Auto) % Neut # (Auto) (1.40-6.50) K/uL Lymph # (Auto) (1.20-3.40) K/uL [place] # (Auto) (0.11-0.59) K/uL Eos # (Auto) (0.00-0.50) K/uL Baso # (Auto) (0.00-0.20) K/uL Immature Gran # (Auto) (0.01-0.20) K/uL Blood Smear Review Dohle Bodies Polychromasia Sodium 136 (136-145) mmol/L Potassium 4.4 (3.5-5.1) mmol/L Chloride 107 (98-107) mmol/L Carbon Dioxide 25 (21-32) mmol/L Anion Gap 4 (3-11) BUN 15 (6-23) mg/dl Creatinine 1.33 (0.6-1.4) mg/dl Est Cr Clr Drug Dosing 54.8 ml/min eGFR 54.71 BUN/Creatinine Ratio 11.3 (10-20) Glucose 121 H (70-99(Fasting)) mg/dl Lactate 1.0 (0.4-2.0) mmol/L Calcium 7.8 L (8.6-10.3) mg/dl Magnesium 1.5 L (1.7-2.4) mg/dl Total Bilirubin (0.2-1.0) mg/dl Direct Bilirubin (0-0.2) mg/dl AST (13-39) U/L ALT (7-52) U/L Alkaline Phosphatase (34-104) U/L Troponin I High Sens (0-20) pg/ml Total Protein (6.0-8.3) gm/dl Albumin (3.4-5.0) gm/dl Procalcitonin (0-0.5) ng/ml Urine Color Urine Appearance (Clear) Urine pH (4.5-7.5) Ur Specific [place] (1.000-1.030) Urine Protein (Negative) Urine Glucose (UA) (Negative) Urine Ketones (Negative) Urine Blood (Negative) Urine Nitrite (Negative) Urine Bilirubin (Negative) Urine Urobilinogen (Negative) Ur Leukocyte Esterase (Negative) Urine WBC (Auto) (0-5) /hpf Urine RBC (Auto) (0-2) /hpf U Hyaline Cast (Auto) (0-2) /lpf U Epithel Cells (Auto) (0-2) /hpf Urine Bacteria (Auto) (None Seen) Granular Casts (None Prsent) /lpf Adenovirus (PCR) (NotDetected) B. pertussis DNA (PCR) (NotDetected) B.parapertussis DNA PCR (NotDetected) Lyme Disease Screen (Negative) C. pneumoniae DNA (PCR) (NotDetected) Coronavirus OC43 (PCR) (NotDetected) Coronavirus HKU1 (PCR) (NotDetected) Coronavirus 229E (PCR) (NotDetected) SARS-CoV-2 (PCR) (NotDetected) Coronavirus NL63 (PCR) (NotDetected) Human Metapneumovir PCR (NotDetected) Influenza Type A (PCR) (NotDetected) Influenza Type B (PCR) (NotDetected) M. pneumoniae (PCR) (NotDetected) Parainfluenza 1 (PCR) (NotDetected) Parainfluenza 2 (PCR) (NotDetected) Parainfluenza 3 (PCR) (NotDetected) Parainfluenza 4 (PCR) (NotDetected) RSV (PCR) (NotDetected) Entero/Rhino (PCR) (NotDetected) Administered Medications Acyclovir (Acyclovir 200 Mg Cap) 200 mg PO BID [facility] Stop: 05/23/24 08:59 Last Admin: 04/23/24 09:16 Dose: 200 mg Documented By: MARC Aspirin (Aspirin 81 Mg Ectab) 81 mg PO DAILY [facility] Stop: 05/23/24 08:59 Last Admin: 04/23/24 08:24 Dose: 81 mg Documented By: MARC Atorvastatin Calcium (Atorvastatin 10 Mg Tab) 10 mg PO DAILY [facility] Stop: 05/23/24 08:59 Last Admin: 04/23/24 09:16 Dose: 10 mg Documented By: MARC Benzonatate (Benzonatate 100 Mg Capsule) 100 mg PO TID [facility] Stop: 04/27/24 08:59 Last Admin: 04/23/24 13:12 Dose: 100 mg Documented By: Admin: 04/23/24 08:24 Dose: 100 mg Documented By: MARC Enoxaparin Sodium (Enoxaparin Inj 40 Mg/0.4 Ml Syr) 40 mg SQ Q24H [facility] Stop: 05/23/24 07:29 Last Admin: 04/23/24 08:22 Dose: Not Given Documented By: MARC Fluticasone Furoate (Fluticasone Furoate 100mcg 14 Puffs/Inhaler) 1 puffs INH DAILY [facility] Stop: 05/23/24 08:59 Last Admin: 04/23/24 09:20 Dose: Not Given Documented By: MARC Fluticasone Propionate (Fluticasone Propionate Na Spr 16 Gm Btl) 1 sprays NA BID [facility] Stop: 05/23/24 08:59 Last Admin: 04/23/24 09:20 Dose: Not Given Documented By: MARC Cefepime HCl (Maxipime 2000mg) 2,000 mg in 20 mls @ 5 mls/min IV Q12H [facility]; Protocol Stop: 04/28/24 13:59 Last Admin: 04/23/24 13:12 Dose: 5 mls/min Documented By: MARC Sodium Chloride (Nss) 1,000 mls @ 125 mls/hr IV .Q8H JOHN Stop: 04/23/24 22:39 Last Admin: 04/23/24 15:52 Dose: 125 mls/hr Documented By: Infusion: 04/23/24 15:52 Dose: Infused Documented By: Admin: 04/23/24 08:25 Dose: 125 mls/hr Documented By: MARC Discontinued Medications Sodium Chloride (Nss) 1,000 mls @ 999 mls/hr IV .Q1H1M JOHN Stop: 04/23/24 03:45 Last Infusion: 04/23/24 04:25 Dose: Infused Documented By: Admin: 04/23/24 03:18 Dose: 999 mls/hr Documented By: Infusion: 04/23/24 03:10 Dose: Infused Documented By: Admin: 04/23/24 01:57 Dose: 999 mls/hr Documented By: OMAR Sodium Chloride (Nss) 500 mls @ 999 mls/hr IV .Q31M ONE Stop: 04/23/24 02:13 Last Infusion: 04/23/24 03:10 Dose: Infused Documented By: Admin: 04/23/24 01:57 Dose: 999 mls/hr Documented By: OMAR Cefepime HCl (Maxipime 2000mg) 2,000 mg in 20 mls @ 5 mls/min IV NOW STA; Protocol Stop: 04/23/24 01:46 Last Admin: 04/23/24 01:57 Dose: 5 mls/min Documented By: IDWen Magnesium Sulfate/Dextrose (Magnesium Sulfate / D5w) 1 gm in 100 mls @ 100 mls/hr IV NOW STA Stop: 04/23/24 03:09 Last Infusion: 04/23/24 04:25 Dose: Infused Documented By: Admin: 04/23/24 03:18 Dose: 100 mls/hr Documented By: IDWen Magnesium Sulfate/Dextrose (Magnesium Sulfate / D5w) 1 gm in 100 mls @ 50 mls/hr IV ONE ONE Stop: 04/23/24 07:31 Last Infusion: 04/23/24 08:21 Dose: Infused Documented By: Admin: 04/23/24 06:18 Dose: 50 mls/hr Documented By: OMAR Doxycycline Hyclate 100 mg/ (Dextrose) 100 mls @ 50 mls/hr IV NOW STA Stop: 04/23/24 07:31 Last Infusion: 04/23/24 08:51 Dose: Infused Documented By: Admin: 04/23/24 06:43 Dose: 50 mls/hr Documented By: MARCELLUS Ioversol (Optiray 320 100ml) 94 ml IV ONCE ONE Stop: 04/23/24 02:15 Last Admin: 04/23/24 02:14 Dose: 94 ml Documented By: PLW Discharge Plan Visit Data Chief Complaint: Fever Stated Complaint: Fever, Cancer ED Provider: Millicent Goss Discharge Problem: Sepsis, Community acquired pneumonia, Rhinovirus, Hypomagnesemia Discharge Instructions Interventions: ED Discharge Assessment Last Done: 04/23/24 06:40
[2024-04-23] MEDS: DOXYCYCLINE HYCLATE 100 MG in DEXTROSE 5% MINI-B 100 ML IV SCH (20:04)
[2024-04-23] MEDS: FORMOTEROL 20 MCG/2 ML VIAL NEB SCH (20:09)
[2024-04-23] MEDS: SODIUM CHLOR 7% 4 ML NEB NEB SCH (20:09)
[2024-04-23] MEDS: MONTELUKAST SODIUM 10 MG TABLET PO SCH (21:29)
[2024-04-24 07:21] LABS: Mean Corpuscular Hemoglobin 34.5 pg (25.0-34.0); Mean Corpuscular Hgb Conc 34.5 g/dL (32.0-36.0); Mean Platelet Volume 9.3 fL (9.4-12.4); Platelet Count 206 K/uL (130-400); RDW Coefficient of Variation 13.1 % (11.5-14.5); RDW Standard Deviation 48.4 fL (36.4-46.3); White Blood Count 3.53 K/ul (4.8-10.8)
[2024-04-24 07:42] VITALS: BP 147/71; PULSE 89; RESP 20; TEMP 98.2; O2SAT 97
[2024-04-24 07:47] LABS: Albumin Globulin Ratio 1.3 (0.9-2); BUN Creatinine Ratio 12.1 (10-20); Bilirubin,Total 0.5 mg/dl (0.2-1.0); Calcium 8.8 mg/dl (8.6-10.3); Creatinine Clr Calc Pharmacy 68.1 ml/min; Globulin 2.3 gm/dl (2.5-4.0); Magnesium 1.7 mg/dl (1.7-2.4); Phosphorus 2.5 mg/dl (2.5-4.9); Total Protein 5.3 gm/dl (6.0-8.3)
[2024-04-24 07:56] LABS: Basophils # (auto) 0.04 K/uL (0.00-0.20); Basophils % (auto) 1.1 %; Dohle Bodies 2+; Eosinophils # (auto) 0.17 K/uL (0.00-0.50); Eosinophils % (auto) 4.8 %; Immature Granulocytes # (auto) 0.22 K/uL (0.01-0.20); Immature Granulocytes % (auto) 6.2 %; Lymphocytes # (auto) 0.62 K/uL (1.20-3.40); Lymphocytes % (auto) 17.6 %; Monocytes # (auto) 0.45 K/uL (0.11-0.59); Monocytes % (auto) 12.7 %; Neutrophils # (auto) 2.03 K/uL (1.40-6.50); Neutrophils % (auto) 57.6 %
[2024-04-24] MEDS: SULFA/TRIMETH 400/80MG TAB PO SCH (08:03)
--- NOTE | 2024-04-24 08:10 | Pulmonology Progress Note ---
Date of Service April 24, 2024 Assessment & Plan (1) Community acquired pneumonia: (2) Chronic cough: (3) Follicular lymphoma: (4) Fever: (5) Acute viral bronchiolitis: (6) Snuff user: Plan Impression: 78-year-old male who presents to the hospital with evidence of community-acquired pneumonia and viral pneumonia was been started on broad- spectrum antibiotics by the hospitalist service. He is improved today and on room air. Recommendations: 1. Pneumonia: Currently on cefepime and doxycycline. Okay to de-escalate to oral Ceftin and doxycycline for 5-day course. 2. Patient's fever curve and oxygen requirement are resolved. Okay to dismiss from the hospital. He can follow-up in the outpatient setting with a repeat CT scan in about 4 to 6 weeks. Patient is established with the pulmonary group at [facility]. If he elects to follow-up. Obviously, he can follow-up with Dr. Wilkinson. 3. Cough: Unclear if this is related to the infection or potentially interstitial lung disease/chemotherapeutic pulmonary toxicity. Follow-up CT scan recommended. Correlation with of prior imaging studies and outpatient pulmonary evaluation is recommended. The patient appears appropriate to dismiss from the hospital as long as he can ambulate feels okay to go home. Feel free to contact us with questions or concerns Admission and Anticipated Discharge Date Admission Date: April 23, 2024 Subjective Patient seen and examined. EMR reviewed. 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 The patient states he is feeling better. His weakness is better. He is not had any fevers or chills overnight. He has been ambulating to the bathroom. He is on room air. He is coughing and expectorating some yellow phlegm. He denies any shortness of breath. No chest pain. Review of Systems 2 Review of Systems: All systems reviewed & are unremarkable except as noted in Subjective Physical Exam 2 Constitutional: WD/WN, vitals as above Neck: trachea midline, no thyromegaly Respiratory: no respiratory distress, no labored breathing, no cough and not tachypneic Auscultation: + crackles Bilateral bases Cardiovascular: RRR, no murmur, no edema Gastrointestinal (Abdomen): normal bowel sounds, soft, nontender, no hepatosplenomegaly Musculoskeletal: Extremities: extremities normal to inspection Skin: no rashes, warm and dry Neurologic: Nonfocal exam Lymphatic: no cervical lymphadenopathy Results & Data Results & Data Vital Signs (Past 12 Hours) Vital Signs Temp Pulse Pulse Pulse Resp BP BP 04/24/24 07:41 36.8 C 89 20 147/71 H 04/24/24 07:27 60 04/24/24 07:06 90 18 04/24/24 07:00 04/24/24 02:46 37.1 C 83 18 146/71 H 04/24/24 00:45 04/24/24 00:09 86 04/23/24 23:14 36.9 C 83 18 145/72 H 04/23/24 22:44 89 20 131/68 04/23/24 21:00 82 20 143/69 H 04/23/24 20:11 81 16 Pulse Ox Pulse Ox O2 Del Method O2 Del Method 04/24/24 07:41 97 Room Air 04/24/24 07:27 04/24/24 07:06 91 Room Air 04/24/24 07:00 96 Room Air 04/24/24 02:46 92 Room Air 04/24/24 00:45 Room Air 04/24/24 00:09 04/23/24 23:14 93 Room Air 04/23/24 22:44 94 Room Air 04/23/24 21:00 91 Room Air 04/23/24 20:11 99 Room Air Laboratory Results 04/24/24 06:53 04/24/24 06:53 Diagnostic Findings No new imaging PG Care Time/CCT Total # of Minutes Spent Total Time Spent with Patient: Total time spent is greater than 50% in coordination of care (as documented) at patient's floor/unit and/or counseling patient: Coding Level of Care Code 87053 SUB INP/OBS CARE 2/35MIN Diagnoses Community acquired pneumonia J18.9 Chronic cough R05.3 Follicular lymphoma C82.90 Fever R50.9 Acute viral bronchiolitis J21.8; B97.89 Snuff user Z72.0
[2024-04-24] MEDS: DOXYCYCLINE HYCLATE 100 MG CAP PO SCH (08:53)
[2024-04-24] MEDS: cefUROXime axetil 500 MG TAB PO SCH (08:54)
--- NOTE | 2024-04-24 10:51 | Discharge Summary ---
Discharge Summary Date of Service April 24, 2024 Principal Dx & Hospital Course #1 = Principal Diagnosis (1) Sepsis: (2) Community acquired pneumonia: (3) Acute viral bronchiolitis: (4) Rhinovirus: (5) Hypomagnesemia: (6) Snuff user: (7) Follicular lymphoma: Plan Patient presented to the emergency room with acute onset of fever and worsening of his cough. In the emergency room imaging consistent with possible pneumonia and he tested positive for rhinovirus. Patient was admitted to the hospital. Placed on IV antibiotics. Pulmonary consultation was obtained. He was continued on his usual inhalers. With the introduction of antibiotics his fever resolved. Pulmonary consultation recommended ongoing antibiotics and transitioning him to oral antibiotics. He was titrated off oxygen. His his laboratory studies stabilized. On the day of discharge she was on room air. He has an outpatient manager interface at [facility] that he follows with regularly he will follow-up with them and with his PCP. To complete a 5-day course of oral antibiotics for his suspected community-acquired pneumonia. Given instructions that he may have a cough for a while with the rhinovirus bronchitis in addition to what his sounds like a more chronic cough which she has been following with his manager interface. is at the bedside at time of discharge and agreeable to plan of care and known was to follow-up with outpatient providers Notes For Next Care Provider Follow-up with pulmonary Follow-up with his oncologist as previously scheduled Medication Changes From Visit Cefuroxime and doxycycline for pneumonia Bactrim was changed to Wednesday for prophylaxis Mucinex for mucolytic. Admission HPI Per Admitting Provider 78-year-old male with past medical history significant for nonseasonal allergic rhinitis, mild aortic valve regurgitation, history of CVA, CKD stage III, BPH, macular degeneration, chronic low back pain, follicular lymphoma grade 3A , history of tobacco use presents with high fevers and found to have pneumonia. Patient says having fever since last Wednesday. He took Tylenol and that subsided fever. Wednesday morning was okay. Then the Wednesday nighttime again he developed high fevers. says temperatures were running from 104 to 106 F and she has given 2 Tylenol's. In the ambulance the fever has come down. He was sweating at that time. He was very weak. Appetite is down. He is having ongoing cough since November. Currently denies any headache. No runny nose. Has some sore throat. Denies chest pain. Has shortness of breath on exertion. No nausea. No abdominal pain. Normal bowel and bladder movements. He ambulates without support.Denies rashes. No swelling the legs. Hemodynamics are okay. Past medical history. As mentioned above. Past surgical history. Colonoscopy. Laparoscopic cholecystectomy. Left Inguinal hernia. Social history. . Former smoking. Snuff tobacco. Alcohol occasional. No drug use. Family history. Father had heart disorder. Mother had a heart disorder. Admission Exam Per Admitting Provider See H&P Discharge Exam Constitutional: Alert, nontoxic in appearance HEENT: Mucous membranes moist. Lungs: Decreased breath sounds, few scattered coarse rhonchi that clears with cough CV: S1-S2, regular Abdomen: Soft, nontender, nondistended Extremities: No significant edema Neuro: No focal deficits Psych: Cooperative, normal mood Updated Medication List Medication Instructions Recorded Confirmed Type acyclovir 200 mg capsule 200 mg PO BID 07/26/23 04/23/24 History ondansetron HCl 4 mg tablet 4 mg PO Q6H PRN Nausea And Vomiting 07/26/23 04/23/24 History prochlorperazine maleate 5 mg 5 mg PO BID PRN n/v 07/26/23 04/23/24 History tablet (Compazine) sildenafil 100 mg tablet 100 mg PO DAILY PRN sexual 07/26/23 04/23/24 Rx activity #20 tabs sulfamethoxazole 400 1 tab PO DAILY 07/26/23 04/23/24 History mg-trimethoprim 80 mg tablet (Bactrim) Singulair 10 mg DAILY 04/23/24 04/23/24 History aspirin 81 mg capsule 81 mg PO DAILY 04/23/24 04/23/24 History atorvastatin 10 mg tablet 10 mg DAILY 04/23/24 04/23/24 History fluticasone furoate 100 100 mcg inhalation DAILY 04/23/24 04/23/24 History mcg/actuation blister powder for inhalation (Arnuity Ellipta) fluticasone propionate 50 50 mcg intranasal BID 04/23/24 04/23/24 History mcg/actuation nasal spray,suspension omeprazole 20 mg capsule,delayed 20 mg DAILY 04/23/24 04/23/24 History release cefuroxime axetil 500 mg tablet 500 mg PO BID 5 days #10 tabs 04/24/24 Rx doxycycline hyclate 100 mg capsule 100 mg PO BID 5 days #10 caps 04/24/24 Rx guaifenesin 1,200 mg tablet, 1,200 mg PO BID #60 tabs 04/24/24 Rx extended release 12 hr (Mucinex) sulfamethoxazole 400 1 tab PO MoWeFr@0900 #30 tabs 04/24/24 Rx mg-trimethoprim 80 mg tablet (Bactrim) Hospital Stay Data Consultations 04/23/24 03:11 ED Decision to Admit Stat 04/23/24 11:35 Consult Pulmonology Routine Diagnostic Imagining Performed 04/23/24 01:43 CT chest diagnostic w con Stat Reviewed imaging, laboratory and diagnostic studies. Pertinent findings as below. WBCs 3.5 Hemoglobin 10.0 Platelets 206 Electrolytes within normal range Creatinine 1.07 MRSA screen was negative Pending Results Patient Have Any Pending Studies at Discharge: Yes Discharge Instructions Given to Patient (Per Discharging Provider) Follow-up with your usual manager interface in 4 to 6 weeks Total Time Total Time Spent Total Time Spent (In Minutes): 26
== END 2024-04-24 12:05 | disposition home or self-care (01) | DRG 871 ==
LOC: ED 00:20 → EDINP 05:57 → SUATTDRO 05:57 → 2W 22:44